=== PATIENT | female | born 1970 | race Caucasian/White ===

== ENCOUNTER 2023-06-26 10:12 | Emergency (ER) | payer OTHER, SELFPAY ==
[2023-06-26] VITALS (33 sets, daily range): BP systolic 156–240; BP diastolic 80–146; PULSE 60–129; RESP 13–29; TEMP 36.7; O2SAT 88–100; BMI 22.0
--- NOTE | 2023-06-26 10:41 | ECG_ITS ---
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
--- NOTE | 2023-06-26 10:42 | ED.GENADUL1 ---
HPI - General Adult General Chief complaint: Abdominal Pain Stated complaint: FLANK PAIN Time Seen by Provider: 06/26/23 10:38 Source: patient Mode of arrival: walk-in Limitations: no limitations History of Present Illness HPI narrative: Patient is a .-year-old female who is presenting with left lower quadrant pain this started last evening. Patient had a dull ache last evening to the left lower quadrant/left pain. Patient did not think it was a kidney stone initially because she's been having kidney stones in the past, and typically starts in the left lower back and radiates to left flank and left lower quadrant. Patient went to PCP office this morning, Dr. Ellis. Patient's pain intensified this morning, patient drove to the office and then drove to the hospitalists morning. Patient had a urine sample done in the Dr. Ellis office that showed gross blood. 4 years ago approximately patient had some type of dilatation where patient says there are multiple rides that were placed into her urethra/ureters and that was hopefully going to fix her kidney stone problems. It does not sound like she had a stent, not sure she had dilation of the ureters, the history is very vague jefferson the patient. Patient did have this done in the urology office at [facility]. Patient does not recall ever having any lithotripsy or stents placed. Patient's not had a kidney stone in the past for 5 years. She is urinating less this morning, blood noted. Nausea no vomiting noted. 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 She has no pain radiating down her leg. No chest pain or shortness of breath. It was noted in the room by Larry RN during patient's initial presentation of pain that she had transient bradycardia, EKG was done. That was short-lived and resolved. Patient is hypertensive secondary to pain most likely per patient history. . All systems are negative except as noted/marked. All systems reviewed and otherwise negative. . Nurses note and vital signs reviewed and patient is not hypoxic. General: The patient appears well and in Mild distress secondary to pain, patient is slightly writhing in bed. Patient is resting uncomfortably on cart. Patient is not toxic, lethargic, or listless Skin: Warm, dry, no pallor noted. There is no rash noted. No petechiae, purpura. Head: Normocephalic, atraumatic Eye: Normal conjunctiva, no drainage, EOMI. PERRL Ears, Nose, Mouth, and Throat: oral mucosa is moist. Nares patent. Mouth without vesicles. Cardiovascular: Regular Rate and Rhythm, no murmur, gallop, rub Respiratory: Patient is in no distress, no accessory muscle use, lungs are clear to auscultation, no wheezing, rales or rhonchi Back: non-tender, Patient has mild tenderness to palpation to left CVA, no right CVA tenderness palpation. Mild left flank pain, no right flank pain,. No CT LS midline pain GI: soft, Mild to moderate left lower quadrant tenderness to palpation, no suprapubic tenderness to palpation, otherwise no tenderness to palpation, no masses appreciated. No rebound, guarding, or rigidity noted. No flank pain bilateral, No distention Musculoskeletal: Patient has full range of motion of all of the extremities, no motor, sensory, or focal neurological deficits Neurological: A&O x3, normal speech Psychiatric: Cooperative Related Data Previous Rx's Medication Instructions Recorded ketorolac 10 mg tablet 10 mg PO Q8H PRN pain 1 day #10 06/26/23 tabs ondansetron 4 mg disintegrating 4 mg PO Q4H PRN nausea and 06/26/23 tablet vomiting 3 days #6 tabs oxycodone-acetaminophen 5 mg-325 1 tab PO Q4H PRN pain #10 tabs 06/26/23 mg tablet (Percocet) tamsulosin 0.4 mg capsule (Flomax) 0.4 mg PO DAILY 7 days #7 caps 06/26/23 Allergies Allergy/AdvReac Type Severity Reaction Status Date / Time ketamine AdvReac Intermediate Verified 06/26/23 14:07 PFSH PFSH Social History Smoking status: Former smoker Exam Constitutional Vital Signs, click to edit/add: Last Vital Signs Temp 98.0 F 06/26/23 10:22 Pulse 99 H 06/26/23 14:20 Resp 16 06/26/23 14:20 BP 161/98 H 06/26/23 14:05 Pulse Ox 95 06/26/23 14:20 O2 Del Method Room Air 06/26/23 10:22 Course Vital Signs Vital signs: Vital Signs Temperature 98.0 F 06/26/23 10:22 Pulse Rate 65 06/26/23 10:22 Respiratory Rate 20 06/26/23 10:22 Blood Pressure 240/120 H 06/26/23 10:22 Pulse Oximetry 100 06/26/23 10:22 Oxygen Delivery Method Room Air 06/26/23 10:22 Temperature 98.0 F 06/26/23 10:22 Pulse Rate 99 H 06/26/23 14:20 Respiratory Rate 16 06/26/23 14:20 Blood Pressure 161/98 H 06/26/23 14:05 Pulse Oximetry 95 06/26/23 14:20 Oxygen Delivery Method Room Air 06/26/23 10:22 Medical Decision Making MDM Narrative Medical decision making narrative: Patient was initially given IV Zofran, Toradol and morphine. The morphine was helping take the edge off the pain somewhat, patient blood pressure improved slightly. After proximal 20 minutes, patient's pain returned and was severe again. Patient was given 0.5 mg of IV Dilaudid. This did not help much with her pain either. [address] of abdomen and pelvis, patient will be given IV dose of ketamine. I was going to order Ativan, we are currently out of Ativan in the hospital 1345 Patient was given ketamine, patient had a brief adverse reaction where she became tachycardic, and was transiently delirious thinking something was wrong something was going to harm her. This quickly resolved, EKGs were done. Patient had a rhythm strip done, patient's heart rate was in the 170s. This appears to be sinus tachycardia. EKG #1. Sinus tachycardia 137. Normal axis deviation. No acute ST elevation, no acute ectopy. QTC of 420. No acute findings. Patient's heart rate improved and back to normal within 3-5 minutes. Patient was given a half a dose of ketamine, approximately 15 mg. This did take her pain away. Patient is aware that we have no Urology on-call until , so if I did admit her for intractable pain to the hospital which was offered to her, we will not have urology consultation. Patient does not want to be admitted to the hospital, patient wants to be discharged and treat her symptoms at home. Patient was given a copy of her CAT scan report. She has a 2 mm stone with mild hydroureter/hydronephrosis at the distal ureter. Patient is given urine strainers. Patient is given follow-up with Dr. Mathews. Patient understands return back to the Emergency Room if intractable pain, nausea or any other acute symptoms. Patient understands is no questions at discharge. Patient was sent home with a prescription for Flomax, Zofran, Percocet, and Toradol. Lab Data Lab results reviewed: Yes I reviewed the patient's lab results Labs: Lab Results 06/26/23 06/26/23 Range/Units 10:32 10:39 WBC 5.9 (4.0-11.0) 10^3/uL RBC 4.79 (4.20-5.40) 10^6/uL Hgb 13.9 (12.0-16.0) g/dL Hct 40.9 (36.0-48.0) % MCV 85.4 (81.0-99.0) fL MCH 29.0 (26.7-34.0) pg MCHC 34.0 (29.9-35.2) g/dL RDW 11.9 (11.0-15.0) % Plt Count 192 (150-450) 10^3/uL MPV 9.7 (9.5-13.5) fL Neut % (Auto) 47.9 (43.0-75.0) % Lymph % (Auto) 40.9 (20.5-60.0) % [place] % (Auto) 6.6 (1.7-12.0) % Eos % (Auto) 3.7 (0.9-7.0) % Baso % (Auto) 0.7 (0.2-2.0) % Neut # (Auto) 2.8 (1.4-6.5) 10^3/uL Lymph # (Auto) 2.4 (1.2-3.8) 10^3/uL [place] # (Auto) 0.4 (0.3-0.8) 10^3/uL Eos # (Auto) 0.2 (0.0-0.7) 10^3/uL Baso # (Auto) 0.0 (0.0-0.1) 10^3/uL Abs Immat Gran (auto) 0.01 (0.00-0.03) 10^3/uL Imm/Tot Granulo (auto) 0.2 (0.0-0.5) % Sodium 139 (136-145) mmol/L Potassium 4.1 (3.5-5.1) mmol/L Chloride 105 (98-107) mmol/L Carbon Dioxide 27.4 (21.0-32.0) mmol/L Anion Gap 10.7 BUN 16.0 (7.0-18.0) mg/dL Creatinine 0.69 (0.55-1.02) mg/dL Est GFR ( Amer) >60 (>=60) Est GFR (Non-Af Amer) >60 (>=60) BUN/Creatinine Ratio 23.2 Glucose 101 (74-106) mg/dL Lactate 0.8 (0.4-2.0) mmol/L Calcium 8.8 (8.5-10.1) mg/dL Total Bilirubin 0.4 (0.2-1.0) mg/dL AST 18 (15-37) U/L ALT 25 (14-59) U/L Alkaline Phosphatase 66 (46-116) U/L Total Protein 7.4 (6.4-8.2) g/dL Albumin 4.2 (3.4-5.0) g/dL Globulin 3.2 g/dL Albumin/Globulin Ratio 1.3 Lipase 46.0 (16.0-77.0) U/L Urine Color Yellow (YELLOW) Urine Clarity Slightly cloudy A (CLEAR) Urine pH 5.5 (5.0-9.0) Ur Specific [place] >=1.030 A (1.005-1.025) Urine Protein Negative (NEG/TRACE) mg/dL Urine Glucose (UA) Negative (NEGATIVE) mg/dL Urine Ketones Negative (NEGATIVE) mg/dL Urine Occult Blood Moderate A (NEGATIVE) Urine Nitrite Negative (NEGATIVE) Urine Bilirubin Negative (NEGATIVE) Urine Urobilinogen 0.2 (0.2-1.0) EU/dL Ur Leukocyte Esterase Negative (NEGATIVE) Urine RBC 0-2 (0-2) #/HPF Urine WBC None seen (NONE SEEN) #/HPF Ur Squamous Epith Cells Rare (NONE/RARE) #/LPF Urine Crystals Seen A (None Seen) #/HPF Calcium Oxalate Crystal Rare Urine Bacteria None seen (NONE SEEN) #/HPF Urine Casts None seen (NONE SEEN) #/LPF Urine Mucus Small A (NONE SEEN) Ur Culture Indicated? No ECG Data Attestation: I personally reviewed and interpreted this ECG as follows: (EKG interpretation. Normal sinus rhythm at 60 beats a minute. Normal axis deviation. No acute ST elevation, no acute ectopy. QTC of 396.) Discharge Plan Discharge Chief Complaint: Abdominal Pain Clinical Impression: Calculus of kidney, Renal colic on left side Patient Disposition: Home, Self-Care Time of Disposition Decision: 14:21 Condition: Good Prescriptions / Home Meds: New ketorolac 10 mg tablet 10 mg PO Q8H PRN (Reason: pain) 1 Days Qty: 10 0RF oxycodone-acetaminophen [Percocet] 5-325 mg tablet 1 tab PO Q4H PRN (Reason: pain) Qty: 10 0RF tamsulosin [Flomax] 0.4 mg capsule 0.4 mg PO DAILY 7 Days Qty: 7 0RF ondansetron 4 mg tablet,disintegrating 4 mg PO Q4H PRN (Reason: nausea and vomiting) 3 Days Qty: 6 0RF Instructions: Kidney Stones (ED), Urinary Incontinence (ED), Renal Colic (ED) Additional Instructions: Increase fluids at home, half a gallon to 1 gallon of water a day. Use urine strainers. Take Flomax daily, use Toradol, Zofran or morphine as needed. Return back to the Emergency Room if intractable pain, nausea or vomiting. You had a adverse reaction Briefly in the Emergency Room today to ketamine IV. Stand Alone Forms: Portal Instructions Referrals: Gregorio Mathews MD [Physician] - 1 week MARLIN ELLIS [Primary Care Provider] - 1 week
[2023-06-26] MEDS: ONDANSETRON PF 4 MG/2 ML VIAL IV ×2 (10:48→14:40)
[2023-06-26] MEDS: MORPHINE SULFATE 4 MG/ML VIAL IV (10:48)
[2023-06-26] MEDS: KETOROLAC TROMETHAMINE 30 MG/ML VIAL 15 MG IVP (10:48)
[2023-06-26] MEDS: 0.9 % SODIUM CHLORIDE 1,000 ML 1000 ML IV (10:49)
[2023-06-26 10:54] LABS: Bilirubin Urine NEGATIVE (NEGATIVE); Blood Urine MODERATE (NEGATIVE); Color Urine YELLOW (YELLOW); Glucose Urine UA NEGATIVE (NEGATIVE); Ketones Urine NEGATIVE (NEGATIVE); Leukocyte Esterase Urine NEGATIVE (NEGATIVE); Nitrite Urine NEGATIVE (NEGATIVE); Protein Urine NEGATIVE (NEG/TRACE); Specific Gravity Urine >=1.030 (1.005-1.025); Urobilinogen Urine 0.2 EU/dL (0.2-1.0); pH Urine 5.5 (5.0-9.0)
[2023-06-26 10:55] LABS: Basophils Percent Auto 0.7 % (0.2-2.0); Eosinophils Absolute Auto 0.2 10^3/uL (0.0-0.7); Eosinophils Percent Auto 3.7 % (0.9-7.0); Hematocrit 40.9 % (36.0-48.0); Hemoglobin 13.9 g/dL (12.0-16.0); Immature Granulocytes Abs Auto 0.01 10^3/uL (0.00-0.03); Immature Granulocytes Pct Auto 0.2 % (0.0-0.5); Lymphocytes Absolute Auto 2.4 10^3/uL (1.2-3.8); Lymphocytes Percent Auto 40.9 % (20.5-60.0); Mean Corpuscular Volume 85.4 fL (81.0-99.0); Mean Platelet Volume 9.7 fL (9.5-13.5); Monocytes Absolute Auto 0.4 10^3/uL (0.3-0.8); Monocytes Percent Auto 6.6 % (1.7-12.0); Neutrophils Absolute Auto 2.8 10^3/uL (1.4-6.5); Neutrophils Percent Auto 47.9 % (43.0-75.0); Platelet Count 192 10^3/uL (150-450); Red Blood Count 4.79 10^6/uL (4.20-5.40); Red Cell Distribution Width 11.9 % (11.0-15.0); White Blood Count 5.9 10^3/uL (4.0-11.0)
[2023-06-26 10:58] LABS: Clarity Urine SLIGHTLY CLOUDY (CLEAR)
[2023-06-26 11:00] LABS: Bacteria Urine NONE SEEN #/HPF (NONE SEEN); Calcium Oxalate Crystals Urine RARE; Cast Seen? NONE SEEN #/LPF (NONE SEEN); Crystals Seen? Seen #/HPF (None Seen); Mucus Urine SMALL (NONE SEEN); RBC Urine 0-2 #/HPF (0-2); Squamous Epithelial Cell Urine RARE #/LPF (NONE/RARE); Urine Culture Indicated NO; WBC Urine NONE SEEN #/HPF (NONE SEEN)
[2023-06-26 11:10] LABS: Alanine Aminotransferase 25 U/L (14-59); Albumin Globulin Ratio 1.3; Albumin Level 4.2 g/dL (3.4-5.0); Alkaline Phosphatase 66 U/L (46-116); Anion Gap 10.7; Aspartate Amino Transferase 18 U/L (15-37); BUN Creatinine Ratio 23.2; Bilirubin Total 0.4 mg/dL (0.2-1.0); Calcium 8.8 mg/dL (8.5-10.1); Carbon Dioxide 27.4 mmol/L (21.0-32.0); Chloride 105 mmol/L (98-107); Estimated GFR (African America >60 (>=60); Estimated GFR (Non-African Ame >60 (>=60); Globulin 3.2 g/dL; Glucose 101 mg/dL (74-106); Potassium 4.1 mmol/L (3.5-5.1); Sodium 139 mmol/L (136-145); Total Protein 7.4 g/dL (6.4-8.2)
[2023-06-26 11:12] LABS: Lactate/Lactic Acid 0.8 mmol/L (0.4-2.0)
[2023-06-26] MEDS: HYDROMORPHONE HCL 0.5 MG/0.5 ML SYRINGE IV (11:29)
--- NOTE | 2023-06-26 11:54 | CT_ITS ---
The [address] [address] Patient Name: LIAN GORDILLO MRN: [id number] date: 1970 Sex: F Assigned Patient Location: ED.MAIN Current Patient Location: Accession/Order Number: [id number] Exam Date: 06/26/2023 11:45 Report Date: 06/26/2023 12:55 At the request of: HIRO HAYES Procedure: CT abdomen pelvis w con EXAMINATION: CT abdomen pelvis w con, 06/26/2023 11:45 AM EDT HISTORY: stone COMPARISON: CT pelvis 02/20/2009 TECHNIQUE: CT of the abdomen, and pelvis was performed following administration of IV contrast. Oral contrast was not administered prior to the examination. Dose reduction techniques were achieved by using automated exposure control and/or adjustment of mA and/or kV according to patient size and/or use of iterative reconstruction technique. FINDINGS: Lung Bases: Minimal hazy groundglass in the lower lobes bilaterally, with additional minimal interstitial thickening which appears relatively smooth. Liver: Normal size and contour. Mild periportal edema. Minimal hypoattenuation about the falciform ligament, likely focal fat versus perfusional variation. Biliary tree: Normal. Gallbladder: Cholecystectomy Spleen: Mildly enlarged, measuring roughly 12.7 cm in craniocaudal dimension. Pancreas: Parenchymal lipoma versus prominent lobule of peripancreatic fat about the tail measuring 1.6 cm. No abnormal ductal dilatation. Adrenal glands: Normal. Kidneys and ureters: Mild left hydronephrosis, asymmetric left perinephric/periureteral stranding, with punctate 2 mm calculus in the distal ureter just upstream to the vesicoureteral junction. Slightly delayed left nephrogram as well, suggests a degree of obstructive uropathy. Bladder: Grossly unremarkable for the degree of underdistention. Reproductive organs: Hysterectomy. No suspicious adnexal mass. Gastrointestinal tract: Nondilated. The appendix is not definitively visualized. No finding in the right lower quadrant to suggest acute appendicitis. Peritoneum/retroperitoneum: No free fluid or gas. Vasculature: Atherosclerosis without aneurysm. Lymph nodes: Normal. Abdominal wall: Procedure change. Musculoskeletal: Degenerative change of the spine. CT/CT abdomen pelvis w con IMPRESSION: 1. Punctate 2 mm left distal ureteral calculus, just upstream to the vesicoureteral junction, with mild left hydronephrosis, delayed left nephrogram suggesting a degree of obstructive uropathy. Asymmetric left perinephric/periureteral stranding presumably relates to stone disease; correlate with urinalysis if there is concern for ascending urinary tract infection. 2. Hazy groundglass and minimal interstitial thickening in the lower lobes bilaterally is nonspecific, could relate to pneumonitis versus minimal edema. 3. Mild periportal edema as well, is nonspecific and can be seen with third spacing and/or fluid resuscitation. Correlate with patient's symptomatology, and LFTs and if there is clinical concern for acute hepatitis. 4. Mild splenomegaly. Electronically authenticated by: ANITA CABAN Date: 06/26/2023 12:55
[2023-06-26] MEDS: 0.9 % SODIUM CHLORIDE 1,000 ML 100 ML IV (12:10)
[2023-06-26] MEDS: KETAMINE HCL 500 MG/10 ML VIAL 30 MG IV (13:31)
--- NOTE | 2023-06-26 13:39 | ECG_ITS ---
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
== END 2023-06-26 14:52 | disposition home or self-care (01) ==
PROVIDERS: Emergency Provider Emergency Medicine; PCP Family Medicine
DX: N20.0 Calculus of kidney (principal); Z87.442 Personal history of urinary calculi; Z87.891 Personal history of nicotine dependence
CPT/HCPCS: 36415; 74177; 80053; 81001; 83605; 83690; 85025; 93005; 96374; 96375; 96376; 99285; J1170; Q9967

== ENCOUNTER 2024-04-30 13:00 | Outpatient (RCR) | payer BC, SELFPAY | END 2024-05-01 13:56 | disposition home or self-care (01) | LOC: PT 13:00 | PROVIDERS: PCP Family Medicine; Visit Provider Family Medicine | DX: M62.830 Muscle spasm of back (principal) ==

== ENCOUNTER 2024-04-30 13:37 | Emergency (ER) | payer BC, SELFPAY ==
[2024-04-30 13:44] VITALS: BP 180/90; PULSE 69; TEMP 36.6; O2SAT 99; BMI 21.5
--- NOTE | 2024-04-30 14:04 | ECG_ITS ---
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
--- NOTE | 2024-04-30 14:04 | ED_ITS ---
HPI HPI - General Adult General Chief complaint: Recheck/Abnormal Lab/Rx Stated complaint: HIGH BLOOD PRESSURE READING Time Seen by Provider: 04/30/24 13:56 Source: patient Mode of arrival: walk-in History of Present Illness HPI narrative: 53-year-old female presents for elevated blood pressure. She has a history of hypertension and takes her blood pressure medicine regularly, has not run out. She checked her blood pressure at home a few days ago and it was normal. She was at physical therapy and they checked it and it was high and they told her to come here. She does not complain of chest pain or headache. She thinks that her blood pressure may be elevated because of the pain in her hip for which she is going to physical therapy. Related Data Home Medications ?Medication ?Instructions ?Recorded ?Confirmed baclofen 20 mg tablet 20 mg PO Q8H 04/30/24 04/30/24 levothyroxine 100 mcg tablet mcg 04/30/24 levothyroxine 75 mcg tablet 75 mcg PO DAILY 04/30/24 04/30/24 losartan 100 mg tablet 100 mg PO DAILY 04/30/24 04/30/24 pantoprazole 40 mg tablet,delayed 40 mg PO DAILY 04/30/24 04/30/24 release Allergies Allergy/AdvReac Type Severity Reaction Status Date / Time ketamine AdvReac Intermediate Verified 06/26/23 14:07 Opioid HPI Opioid Management Most Recent Opioid Data: Last Pain Scale 8 06/26/23 11:06 Review of Systems ROS Narrative A ten point review of systems is negative except as noted above. PFSH PFSH Social History Smoking status: Former smoker Exam Narrative Exam Narrative: Nurses note and vital signs reviewed and patient is not hypoxic. General: The patient appears well and in no apparent distress. 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 Skin: Warm, dry, no pallor noted. There is no rash noted. Head: Normocephalic, atraumatic Eye: Normal conjunctiva, no drainage Ears, Nose, Mouth, and Throat: oral mucosa is moist. Nares patent. Cardiovascular: Regular Rate and Rhythm Respiratory: Patient is in no distress, no accessory muscle use, lungs are clear to auscultation, no wheezing, rales or rhonchi Back: non-tender GI: Soft and nontender Musculoskeletal: The patient has no evidence of calf tenderness, no pitting edema, symmetrical pulses noted bilaterally Neurological: A&O normal speech Psychiatric: Cooperative Constitutional Vital Signs, click to edit/add: Last Vital Signs Temp 97.9 F 04/30/24 13:44 Pulse 64 04/30/24 14:30 Resp 15 04/30/24 14:30 BP 143/80 H 04/30/24 14:30 Pulse Ox 99 04/30/24 13:44 O2 Del Method Room Air 04/30/24 13:44 Course Vital Signs Vital signs: Vital Signs Temperature 97.9 F 04/30/24 13:44 Pulse Rate 69 04/30/24 13:44 Respiratory Rate 18 04/30/24 13:44 Blood Pressure 180/90 H 04/30/24 13:44 Pulse Oximetry 99 04/30/24 13:44 Oxygen Delivery Method Room Air 04/30/24 13:44 Temperature 97.9 F 04/30/24 13:44 Pulse Rate 64 04/30/24 14:30 Respiratory Rate 15 04/30/24 14:30 Blood Pressure 143/80 H 04/30/24 14:30 Pulse Oximetry 99 04/30/24 13:44 Oxygen Delivery Method Room Air 04/30/24 13:44 Medical Decision Making MDM Narrative Medical decision making narrative: Her blood pressure normalized without intervention and she feels improved and is able to be discharged home. She will be able to check her blood pressure at home and she will follow-up with her doctor if needed. Treatment diagnosis and follow-up were discussed with the patient. Differential Diagnosis Differential Diagnosis: Hypertension, pain induced hypertension ECG Data Attestation: I personally reviewed and interpreted this ECG as follows: (EKG on my interpretation shows normal sinus rhythm without acute change and rate of 64.) Discharge Plan Discharge Stand Alone Forms: Portal Instructions Chief Complaint: Recheck/Abnormal Lab/Rx Clinical Impression: Hypertension Patient Disposition: Home, Self-Care Time of Disposition Decision: 14:51 Condition: Good Mode of Transportation: Private Vehicle Prescriptions / Home Meds: No Action baclofen 20 mg tablet 20 mg PO Q8H levothyroxine 75 mcg tablet 75 mcg PO DAILY levothyroxine 100 mcg tablet losartan 100 mg tablet 100 mg PO DAILY pantoprazole 40 mg tablet,delayed release (DR/EC) 40 mg PO DAILY Print Language: Uzbek Instructions: Hypertension (ED) Referrals: MARLIN CALVERT [Primary Care Provider] - 1 week
[2024-04-30 14:28] VITALS: BP 151/87; PULSE 65
[2024-04-30 14:29] VITALS: PULSE 64
[2024-04-30 14:30] VITALS: BP 143/80; PULSE 64
[2024-04-30 14:40] VITALS: PULSE 59
[2024-04-30 14:50] VITALS: PULSE 66
== END 2024-04-30 15:05 | disposition home or self-care (01) ==
PROVIDERS: Emergency Provider Emergency Medicine; PCP Family Medicine
DX: I10 Essential (primary) hypertension (principal); Z87.891 Personal history of nicotine dependence
CPT/HCPCS: 93005; 99283

== ENCOUNTER 2024-05-14 14:00 | Outpatient (RCR) | payer BC, SELFPAY | END 2024-05-15 12:51 | disposition home or self-care (01) | LOC: PT 14:00 | PROVIDERS: PCP Family Medicine; Visit Provider Family Medicine | DX: M62.830 Muscle spasm of back (principal) | CPT/HCPCS: 97750 ==

== ENCOUNTER 2024-11-23 10:48 | Outpatient (OUT) | payer BC, SELFPAY ==
--- NOTE | 2024-11-23 10:50 | US_ITS ---
The [address] [address] Patient Name: LIAN GORDILLO MRN: [id number] date: 1970 Sex: F Assigned Patient Location: US Current Patient Location: US Accession/Order Number: [id number] Exam Date: 11/23/2024 14:11 Report Date: 11/23/2024 14:13 At the request of: BRIANA TERRY Procedure: US thyroid Thyroid Ultrasound HISTORY: History of Betzy's thyroiditis. Thyroid medication for 15 years. Trouble swallowing. COMPARISON: None The RIGHT lobe measures 0.9 x 0.6 x 0.6cm. LEFT lobe measures 1.0 x 0.4 x 0.5 cm. Isthmus has an AP dimension of 0.7cm. No thyroid nodule identified.. No microcalcifications identified. Symmetric blood flow of the thyroid gland identified. US/US thyroid IMPRESSION: No thyroid nodules. Impression dictated by: Rickey Josue M.D.11/23/2024 2:13 PM Dictation Location: [employer] Electronically authenticated by: [id number] Date: 11/23/2024 14:13
--- OUTSIDE RECORDS SUMMARY | 2024-11-23 10:51 | XMS_ITS | CCD ---
Author Organization [facility] Care Team Providers Care Automation Test Developer Name Role Phone Xena Garner MD Primary Care Provider DR XENA GARNER Admitting Unavailable CASEY, DR XENA Wooten Attending Unavailable CASEY, DR XENA Wooten Primary Care Unavailable CASEY, DR XENA Wooten Consulting Unavailable Demarco Ellis. Primary Care Physician [phone] Jay Ellis Primary Care Provider [phone] RENNY Presley Attending Provider Homa Presley Attending Unavailable Maia Ellisnaterlin Benjamin Primary Care Unavailable Sakina Homa Admitting Unavailable Homa Presley Attending Unavailable Maia Ellisnathan H Primary Care Unavailable Sakina, Homa Admitting Unavailable Caleb Jay H Primary Care Provider [phone] Homa Presley APRN Attending Provider Demarco Ellis Attending Unavailable Caleb Demarco E. Admitting Unavailable Caleb, Demarco E. Attending Unavailable Caleb, Demarco E. Attending Unavailable Caleb, Demarco E. Admitting Unavailable Caleb, Demarco E. Admitting Unavailable Caleb Demarco E. Attending Unavailable Caleb Demarco E. Attending Unavailable Caleb Demarco E. Attending Unavailable Caleb Demarco E. Attending Unavailable Caleb, Demarco E. Attending Unavailable Caleb, Demarco E. Attending Unavailable Caleb, Demarco E. Attending Unavailable Caleb Demarco E. Attending Unavailable Caleb Demarco E. Attending Unavailable Caleb Demarco E. Attending Unavailable Caleb Demarco E. Attending Unavailable Rena Guzman Attending Unavailable Demarco Ellis E. Attending Unavailable Allergies Allergy Classification Reported Allergen(s) Allergy Type Date of Onset Reaction(s) Facility (7 sources) Ketamine; Translations: [ketamine] Drug Allergy Bradycardia (disorder) [facility] Medications Current Medications Medication Drug Class(es) Dates Sig (Normalized) Sig (Original) baclofen 20 mg oral tablet (10 sources) gamma-Aminobutyric Acid-ergic Agonist Start: 07-02-2024 Baclofen Active MG PO July 02, 2024 12:00am Start: 11-15-2023 End: 11-09-2024 Baclofen 20 mg tablet Active MG PO July 01, 2024 11:00pm Start: 01-11-2023 take 1 tablet by eula th three times daily baclofen 20 mg Tab 20 mg = 1 tab(s), Oral, TID, # 90 tab(s), Refills(s) 5, Pharmacy: [facility]/pharmacy #[id number] Start Date: 01/11/23 Status: Ordered celecoxib 200 mg oral capsule (6 sources) Nonsteroidal Anti-inflammatory Drug Start: 01-11-2023 take 1 capsule by mouth twice daily celecoxib 200 mg Cap 200 mg = 1 cap(s), Oral, BID, # 60 cap(s), Refills(s) 0 Start Date: 01/11/23 Status: Ordered levothyroxine sodium 0.075 mg oral tablet (11 sources) l-Thyroxine Start: 07-02-2024 Levothyroxine 75 mcg tablet Active MCG PO July 01, 2024 11:00pm Start: 07-02-2024 Levothyroxine Active MCG PO July 02, 2024 12:00am Start: 01-15-2024 take 1 tablet by eula th once daily levothyroxine 75 mcg (0.075 mg) Tab 75 mcg = 1 tab(s), Oral, Daily, # 90 tab(s), Refills(s) 1, Pharmacy: [facility]/pharmacy #[id number], 163.2, cm, 01/11/24 15:23:00 EDT, Height/Length Dosing, 59.4, kg, 01/11/24 15:23:00 EDT, Weight Dosing Start Date: 01/15/24 Status: Ordered Start: 01-11-2024 take 1 tablet by eula th once daily levothyroxine 75 mcg (0.075 mg) Tab 75 mcg = 1 tab(s), Oral, Daily, # 30 tab(s), Refills(s) 1, [id number], 163.2, cm, 01/11/24 15:23:00 EDT, Height/Length Dosing, 59.4, kg, 01/11/24 15:23:00 EDT, Weight Dosing Start Date: 01/11/24 Status: Ordered Start: 10-30-2023 take 1 tablet by eula th once daily levothyroxine 100 mcg (0.1 mg) Tab See Instructions, TAKE 1 TABLET BY MOUTH EVERY DAY, # 90 tab(s), Refills(s) 1, Pharmacy: [facility] STORE [id number], 163.2, cm, 07/12/23 8:28:00 EDT, Height/Length Dosing, 58.4, kg, 07/12/23 8:28:00 EDT, Weight Dosing Start Date: 10/30/23 Status: Ordered Start: 06-21-2023 take 1 tablet by eula th once daily levothyroxine 125 mcg (0.125 mg) Tab 125 mcg = 1 tab(s), Oral, Daily, # 90 tab(s), Refills(s) 0, [id number], 163.2, cm, 06/19/23 14:23:00 EDT, Height/Length Dosing, 57.8, kg, 06/19/23 14:23:00 EDT, Weight Dosing Start Date: 06/21/23 Status: Ordered Start: 01-31-2023 take 1 tablet by eula th once daily levothyroxine 150 mcg (0.15 mg) Tab 150 mcg = 1 tab(s), Oral, Daily, # 90 tab(s), Refills(s) 1, [id number] Start Date: 01/31/23 Status: Ordered take 1 tablet by eula th once daily before breakfast levothyroxine (SYNTHROID) 150 mcg tablet Take 150 mcg by mouth daily before breakfast. 0 Active Comment on above: Take 150 mcg by mout h daily before breakfast. losartan potassium 100 mg oral tablet (6 sources) Angiotensin 2 Receptor Natalia Start: 07-02-2024 Losartan 100 mg tablet Active MG PO July 01, 2024 11:00pm Start: 07-02-2024 Losartan Activ e MG PO July 02, 2024 12:00am Start: 01-11-2024 take 1 tablet by mouth once da trae losartan 100 mg Tab 100 mg = 1 tab(s), Oral, Daily, # 90 tab(s), Refills(s) 0, [id number], 163.2, cm, 01/11/24 15:23:00 EDT, Height/Length Dosing, 59.4, kg, 01/11/24 15:23:00 EDT, Weight Dosing Start Date: 01/11/24 Status: Ordered methylPREDNISolone 4 mg oral tablet (1 source) Corticosteroid Start: 02-19-2024 End: 02-25-2024 Medrol Dosepack 4 mg Tab = 1 packet(s), Oral, As Directed, as directed on package labeling, X 6 day(s), # 21 tab(s), Refills(s) 0, [id number], 163.2, cm, 02/19/24 16:51:00 EDT, Height/Length Dosing, 59.1, kg, 02/19/24 16:51:00 EDT, Weight Dosing Start Date: 02/19/24 Stop Date: 02/25/24 Status: Ordered mupirocin 0.02 mg/mg topical ointment (6 sources) RNA Synthetase Inhibitor Antibacterial Start: 01-11-2023 mupirocin Top 2% Oint 1 jevon, Topical, TID, 30 gram, Refill(s) 0 Start Date: 01/11/23 Status: Ordered pantoprazole 40 mg delayed release oral tablet (10 sources) Proton Pump Inhibitor Start: 07-02-2024 Pantopra zole 40 mg tablet,delayed release (DR/EC) Active MG PO July 01, 2024 11:00pm Start: 07-02-2024 Pantoprazole A ctive MG PO July 02, 2024 12:00am Start: 11-15-2023 take 1 tablet by eula th once daily Pantoprazole [address] Tab See Instructions, TAKE 1 TABLET BY MOUTH EVERY DAY, # 30 tab(s), Refills(s) 11, Pharmacy: [facility] [id number], 163.2, cm, 11/06/23 16:31:00 EST, Height/Length Dosing, 59.8, kg, 11/06/23 16:31:00 EST, Weight Dosing Start Date: 11/15/23 Status: Ordered Start: 01-11-2023 take 1 tablet by eula th once daily Pantoprazole [address] Tab 40 mg = 1 tab(s), Oral, Daily, Refills(s) 0 Start Date: 01/11/23 Status: Ordered predniSONE 10 mg oral tablet (4 sources) Start: 07-02-2024 Prednisone 10 mg tablet Active 10 MG PO As Directed July 01, 2024 11:00pm see taper instructions traMADol hydrochloride 50 mg oral tablet (1 source) Opioid Agonist Start: 02-19-2024 End: 02-22-2024 take 1 tablet by mouth every twelve hours as needed for pain traMADOL 50 mg Tab 50 mg = 1 tab(s), Oral, q12hr, PRN for pain, X 3 day(s), # 6 tab(s), Refills(s) 0, Pharmacy: [facility]/pharmacy #[id number], 163.2, cm, 02/19/24 16:51:00 EDT, Height/Length Dosing, 59.1, kg, 02/19/24 16:51:00 EDT, Weight Dosing Start Date: 02/19/24 Stop Date: 02/22/24 Status: Ordered Completed/Discontinued Medications Medication Drug Class(es) Dates Sig (Normalized) Sig (Original) atorvastatin 20 mg oral tablet (1 source) HMG-CoA Reductase Inhibitor take 1 tablet by mouth once daily atorvastatin (LIPITOR) 20 mg tablet Take 20 mg by mouth once daily. 0 Active Comment on above: Take 20 mg by mouth once daily. drospirenone / Ethinyl Estradiol (1 source) Progestin, Estrogen Start: 10-25-2016 take 1 tablet by mouth once daily Drospirenone-Ethi nyl Estradiol (ROSEANN, 28,) 3-0.03 mg per tablet Take 1 tablet by mouth once daily. 3 Package 3 10/25/2016 Active Comment on above: Take 1 tablet by eula once daily. hydroCHLOROthiazide 25 mg / losartan potassium 100 mg oral tablet (1 source) Thiazide Diuretic, Angiotensin 2 Receptor Natalia take 1 tablet by mouth once daily losartan-hydrochl orothiazide (HYZAAR) 100-25 mg per tablet Take 1 tablet by mouth once daily. 0 Active Comment on above: Take 1 tablet by eula th once daily. Problems Problem Classification Problem Date Documented Date Episodic/Chronic Anxiety disorders (6 sources) Anxiety state 01-11-2023 Chronic Calculus of urinary tract (6 sources) History of calculus of kidney; Translations: [Personal history of urinary calculi] Onset: 07-06-2023 Episodic Cardiac dysrhythmias (6 sources) Palpitations 06-19-2023 Episodic Conditions associated with dizziness or vertigo (6 sources) Dizziness 06-19-2023 Episodic Disorders of lipid metabolism (13 sources) Pure hypercholesterolemia, unspecified; Translations: [Mixed hyperlipidemia] Onset: 12-16-2021 01-11-2023 Chronic Essential hypertension (10 sources) Essential (primary) hypertension; Translations: [Essential hypertension] Onset: 12-14-2021 Chronic Genitourinary symptoms and ill-defined conditions (12 sources) History of urinary tract infection; Translations: [Personal history of urinary (tract) infections] Onset: 07-12-2023 Episodic Headache; including migraine (6 sources) Generalized headache 01-11-2023 Episodic Hypertension with complications and secondary hypertension (3 sources) Hypertensive urgency 06-26-2023 Chronic Osteoarthritis (6 sources) Osteoarthritis 01-11-2023 Chronic Other diseases of kidney and ureters (1 source) Urinary tract obstruction; Translations: [Hydronephrosis with renal and ureteral calculous obstruction] Onset: 07-06-2023 Episodic Other nervous system disorders (6 sources) Carpal tunnel syndrome 01-11-2023 Chronic Other non-traumatic joint disorders (4 sources) Hip pain; Translations: [Pain in left hip] 07-02-2024 Episodic Other non-traumatic joint disorders (5 sources) Pain in left hip; Translations: [Pain in joint, pelvic region and thigh] Onset: 07-02-2024 07-02-2024 Episodic Screening and history of mental health and substance abuse codes (6 sources) H/O: Disorder; Translations: [Personal history of nicotine dependence] Onset: 07-12-2023 Episodic Spondylosis; intervertebral disc disorders; other back problems (20 sources) Disorder of vertebral column; Translations: [Sciatica] Onset: 07-02-2024 01-11-2023 Episodic Thyroid disorders (7 sources) Autoimmune thyroiditis; Translations: [Fibrous autoimmune thyroiditis] Onset: 12-16-2021 01-11-2023 Chronic Unclassified (12 sources) Patient encounter status 06-19-2023 Unclassified (5 sources) Obstructive hydronephrosis 07-06-2023 Results Test Name Value Interpretation Reference Range Kiera constantino Family Medicine Office/Clini c Noteon 08-19-2024 Family Medicine Office/Clinic Note Family Medicine Office/Clinic Note HPI Staff Lian is a 53 year old female presenting to follow up back, clear to RTW Back pain is better Intensity 4-5 today History of Present Illness Patient presents for follow-up today on back pain. Patient wants to go back to work. Patient states that she needs a release to go back. Patient states that there is no concerns per neurology. Reviewed neurosurgery. Neurosurgery documented that the patient is still in significant amount of pain. But they review the MRI that showed no acute concern for the back pain. Neurosurgery believes that it is the SI joint and sent the patient to pain management. Patient now states that she is only 4 out of 5 out of 10 pain. Patient states that the pain is better with movement and not with sitting. Patient would then like to go back to work as she will feel better with the movement. Review of Systems PHQ Score Initial Depression Screen Score: 0 SCORE Physical Exam Vitals & Measurements T: 36.9 ???C(Oral) HR: 78(Peripheral) RR: 16 BP: 120/82 SpO2: 99% HT: 64 in HT: 163 cm WT: 62.9 kg WT: 138.671 lb BMI: 23.67 General: alert, no acute distress ENMT: oral mucosa moist, Cardiovascular: normal peripheral perfusion Respiratory: respirations non labored Extremities: no deformity, no trauma Neurological: oriented x 4, LOC appropriate for age, CN II-XII intact, motor strength equal & normal bilaterally, speech normal Assessment/Plan 1. Back pain (M54.9: Dorsalgia, unspecified) Patient to follow-up with pain management. Will the patient go back to work without restrictions. Patient should notify us if she has worsening back pain. Patient is to continue taking her baclofen as before. Patient is to see pain management. Follow-up No qualifying data available Problem List/Past Medical History Ongoing Anxiety states Back muscle spasm Back pain Bilateral carpal tunnel syndrome Colon cancer screening Dizziness Essential hypertension Former smoker Generalized headache Betzy thyroiditis, fibrous variant History of kidney stones History of UTI Mixed hyperlipidemia Nocturia Osteoarthritis Other specified dorsopathies, site unspecified Palpitation Pure hypercholesterolemia Sciatica Screening mammogram for breast cancer Ureteral stone with hydronephrosis Historical No qualifying data Procedure/Surgical History Cystourethroscopy with dilation of urethral stricture (11/04/2011), Carpal tunnel release, Cholecystectomy and exploration of bile duct, Colonoscopy, Endocervical biopsy, Lumbar discectomy, Oophorectomy, Partial hysterectomy, Post-surgery back pain, Surgery. Medications baclofen 20 mg Tab, 20 mg= 1 tab(s), Oral, TID, 3 refills levothyroxine 75 mcg (0.075 mg) Tab, See Instructions losartan 100 mg Tab, See Instructions mupirocin Top 2% Oint, 1 jevon, Topical, TID Pantoprazole [address] Tab, See Instructions Allergies ketamine (Decreased heart rate) Social History Alcohol - Denies Alcohol Use, 01/11/2023 Substance Abuse - Denies Substance Abuse, 01/11/2023 Tobacco Former smoker, quit more than 30 days ago, quit 15 years ago Tobacco Use:. Never Smokeless Tobacco Use:. Ready to change: No. Household tobacco concerns: No., 08/19/2024 Family History Arthritis: Mother. Bipolar: Mother, Father and Sister. Diabetes mellitus type 2: Mother. Heart disease: Mother. High cholesterol: Mother and Brother. Hypertension: Mother. Schizoaffective disorder: Mother and Father. Stroke: Brother. Immunizations Vaccine Date Status Comments SARS-CoV-2 (COVID-19) mRNA BNT-162b2 vax 11/23/2020 Recorded 2023-06-19: TPV40 SARS-CoV-2 (COVID-19) mRNA BNT-162b2 vax 11/05/2020 Recorded 2023-06-19: TPV40 influenza virus vaccine, inactivated 08/18/2015 Recorded Normal [facility] Comment on above: Result Comment: Elec tronically Signed By: Caleb YO, Demarco Kowalski.br\Date and Time Signed: 08/19/24 18:20 EST Provider Letteron 08-19-2024 Provider Letter Provider Letter August 19, 2024 LIAN GORDILLO [address] [place] [id number] : 1970 To Whom It May Concern, Please excuse above patient from work. May Return to Work On: 08/20/2024 Restrictions: None Comments: May return to work with no restrictions. Sincerely, [address] [address] [facility] MR lumbar spine wo conon MR lumbar spine wo con [facility] [place] [address] [place] [id number] MRI Report Signed Patient: Lian Gordillo MR#: [id number] : 1970 Acct:[id number] Age/Sex: 53 / F ADM Date: 07/30/24 Loc: [facility] Room: Type: [facility] Attending Dr: Homa Presley APRN Copies to: Homa Presley APRN Ordering Provider: Homa Presley APRN Date of Service: 07/30/24 MR/MR lumbar spine wo con: M54.16 - Radiculopathy, lumbar region MR lumbar spine wo con 07/30/2024 11:13 AM SIGNS AND SYMPTOMS: Back pain radiating to left hip with extremity radiculopathy PROTOCOL: Multiplanar multisequence MR images of the lumbar spine without IV contrast COMPARISON: 04/01/2024. FINDINGS: The bones of the lumbar spine are in anatomic alignment. There is preservation of vertebral body heights. There is disc desiccation and mild disc height loss at L4-5 and L5-S1. The marrow signal is within normal limits. The conus terminates at the superior endplate of the L1 vertebral body level. No epidural or paraspinous fluid collection is appreciated. At T12-L1: There is a normal disc, central canal, and neural foramen. At L1-L2: There is a normal disc, central canal, and neural foramen. At L2-L3: There is a normal disc, central canal, and neural foramen. At L3-L4: There is a normal disc, central canal, and neural foramen. At L4-L5: There is evidence of previous right hemilaminotomy. There is no significant spinal canal or neural foraminal narrowing. At L5-S1: There is mild facet hypertrophy with broad-based disc bulge. There is minimal spinal canal narrowing without neural foraminal stenosis. MR/MR lumbar spine wo con IMPRESSION: At L4-L5: There is evidence of previous right hemilaminotomy. There is no significant spinal canal or neural foraminal narrowing. At L5-S1: There is mild facet hypertrophy with broad-based disc bulge. There is minimal spinal canal narrowing without neural foraminal stenosis. Impression dictated by: Crow Rosas M.D.07/30/2024 3:41 PM Dictation Location: [place] [address] Transcribed By: [facility] 07/30/24 1541 Dictated By: Crow Rosas II, MD 07/30/24 1534 Signed By: 07/30/24 1541 Normal [facility] Magnetic resonance imaging r eportOrdered By: Crow Rosas on 07-30-2024 Study report [facility] [place] [address] MRI Report Signed Patient: Lian Gordillo MR#: [id number] : 1970 Acct:[id number] Age/Sex: 53 / F ADM Date: 4 Loc: [facility] Room: Type: [facility] Attending Dr: Homa Presley APRN Copies to: Homa Presley APRN~ Ordering Provider: Homa Presley APRN Date of Service: 07/30/24 MR/MR lumbar spine wo con: M54.16 - Radiculopathy, lumbar region MR lumbar spine wo con 07/30/2024 11:13 AM SIGNS AND SYMPTOMS: Back pain radiating to left hip with extremity radiculopathy PROTOCOL: Multiplanar multisequence MR images of the lumbar spine without IV contrast COMPARISON: 04/01/2024. FINDINGS: The bones of the lumbar spine are in anatomic alignment. There is preservation of vertebral body heights. There is disc desiccation and mild discheight loss at L4-5 and L5-S1. The marrow signal is within normal limits. The conus terminates at the superior endplate of the L1 vertebral body level. No epidural or paraspinous fluid collection is appreciated. At T12-L1: There is a normal disc, central canal, and neural foramen. At L1-L2: There is a normal disc, central canal, and neural foramen. At L2-L3: There is a normal disc, central canal, and neural foramen. At L3-L4: There is a normal disc, central canal, and neural foramen. At L4-L5: There is evidence of previous right hemilaminotomy. There is no significant spinal canal or neural foraminal narrowing. At L5-S1: There is mild facet hypertrophy with broad-based disc bulge. There isminimal spinal canal narrowing without neural foraminal stenosis. MR/MR lumbar spine wo con IMPRESSION: At L4-L5: There is evidence of previous right hemilaminotomy. There is no significant spinal canal or neural foraminal narrowing. At L5-S1: There is mild facet hypertrophy with broad-based disc bulge. There isminimal spinal canal narrowing without neural foraminal stenosis. Impression dictated by: Crow Rosas M.D.07/30/2024 3:41 PM Dictation Location: [place] [address] Transcribed By: EVELIN 07/30/24 1541 Dictated By: Crow Rosas II, MD 07/30/24 1534 Signed By: 07/30/24 1541 [facility] Work Phone: XR hip LT min 2V(w/wo pelvis )*on 07-02-2024 XR hip LT min 2V(w/wo pelvis)* [facility] [place] [address] XRay Report Signed Patient: Lian Gordillo MR#: [id number] : 1970 Acct:[id number] Age/Sex: 53 / F ADM Date: 07/02/24 Loc: XD Room: Type: [facility] Attending Dr: Homa Presley APRN Copies to: Homa Presley APRN Ordering Provider: Homa Presley APRN Date of Service: 07/02/24 XR/XR hip LT min 2V(w/wo pelvis)*: M25.552 - Pain in left hip LEFT HIP - 2 views: CLINICAL HISTORY: Chronic low back pain left hip pain and numbness of left posterior thigh. COMPARISON: None FINDINGS: 6 no acute bony process or significant degenerative change involving the left hip. Left SI joint demonstrate degenerative change. XR/XR hip LT min 2V(w/wo pelvis)* IMPRESSION: NO ACUTE BONY PROCESS.. Impression dictated by: Melina Sanches Jr..O.07/02/2024 8:05 PM Dictation Location: [facility]-15 Transcribed By: EVELIN 07/02/242004 Dictated By: Junito Solis Jr, DO 07/02/242004 Signed By: 07/02/242004 Normal [facility] XR lumbar spine 6V w bending on 07-02-2024 XR lumbar spine 6V w bending [facility] [place] [address] [place] [address] XRay Report Signed Patient: Lian Gordillo MR#: [id number] : 1970 Acct:[id number] Age/Sex: 53 / F ADM Date: 07/02/24 Loc: XD Room: Type: [facility] Attending Dr: Homa Presley APRN Copies to: Homa Presley APRN Ordering Provider: Homa Presley APRN Date of Service: 07/02/24 XR/XR lumbar spine 6V w bending: M54.16 - Radiculopathy, lumbar region LUMBAR SPINE - 7 views CLINICAL HISTORY: Chronic low back pain left hip pain and numbness of left posterior thigh COMPARISON: None FINDINGS: Vertebral body heights appear maintained. Mild diffuse disc space narrowing with facet joint degenerative changes. No pathological motion on flexion or extension views. SI joints demonstrate degenerative change. XR/XR lumbar spine 6V w bending IMPRESSION: MILD DIFFUSE DEGENERATIVE DISC DISEASE. Impression dictated by: Junito Solis Jr., D.O.07/02/2024 8:06 PM Dictation Location: [facility] Transcribed By: EVELIN 07/02/242005 Dictated By: Junito Solis Jr, DO 07/02/242005 Signed By: 07/02/242005 Normal [facility] Provider Letteron 06-03-2024 Provider Letter Provider Letter June 03, 2024 LIAN GORDILLO [address] [place] [phone] : 1970 To Whom It May Concern, Patient can only work 3 hours per day due to medical, pending neurosurgery referral, if you have any questions please contact my office. Date of Illness: From: _ 05-19-24 To: _ pending neurosurgeon appointment May Return to Work On: Restrictions: _ Comments: _ Sincerely, [address] [address] [facility] Ambulatory Visit Summaryon 0 05-27-2024 Ambulatory Visit Summary Ambulatory Visit Summary LIAN GORDILLO :1970 Visit Date:05/27/2024 Ambulatory Visit Instructions Your Diagnosis Essential hypertension BMI 23.0-23.9, adult Former smoker Your Care Team Attending Physician - Demarco Ellis MD Primary Care Physician - Demarco Ellis MD This Is Your Medications List baclofen (baclofen 20 mg Tab) levothyroxine (levothyroxine 75 mcg (0.075 mg) Tab) losartan (losartan 100 mg Tab) mupirocin topical (mupirocin Top 2% Oint) pantoprazole (Pantoprazole [address] Tab) Procedures Performed Cystourethroscopy with dilation of urethral stricture (11/04/2011), Carpal tunnel release, Cholecystectomy and exploration of bile duct, Colonoscopy, Endocervical biopsy, Lumbar discectomy, Oophorectomy, Partial hysterectomy, Post-surgery back pain, Surgery. Discharge Vitals Temperature (Temporal Artery) 36.4 ?C Heart Rate (Peripheral) 76 Respiratory Rate 16 Blood Pressure 132/84 Height 163 cm Height 64 in Weight 61.2 kg Weight 134.64 lb BMI 23.03 What to do next Scheduled Follow-Up Appointments 2023 2:45 PM EDT With: Demarco Ellis MD Where: [address] [address]- Medications What How Much When Instructions Unchanged baclofen (baclofen 20 mg Tab) 1 Tablets By Mouth 3 times a day Duration: 90 Days Unchanged levothyroxine (levothyroxine 75 mcg (0.075 mg) Tab) See instructions TAKE 1 TABLET BY MOUTH EVERY DAY Unchanged losartan (losartan 100 mg Tab) 1 Tablets By Mouth Every day Unchanged mupirocin topical (mupirocin Top 2% Oint) 1 Application Topical 3 times a day Unchanged pantoprazole (Pantoprazole [address] Tab) See instructions TAKE 1 TABLET BY MOUTH EVERY DAY Allergies ketamine (Decreased heart rate) Problems Ongoing - Any problem that you are currently receiving treatment for. Anxiety states Back muscle spasm Bilateral carpal tunnel syndrome Colon cancer screening Dizziness Essential hypertension Former smoker Generalized headache Betzy thyroiditis, fibrous variant History of kidney stones History of UTI Mixed hyperlipidemia Nocturia Osteoarthritis Other specified dorsopathies, site unspecified Palpitation Pure hypercholesterolemia Sciatica Screening mammogram for breast cancer Ureteral stone with hydronephrosis Patient Survey You may receive a survey via text or e-mail asking about your office visit. Please share your experience with us by completing your survey. We appreciate your feedback and thank you for choosing us for your care. Normal [facility] Family Medicine Office/Clini c Noteon 05-27-2024 Family Medicine Office/Clinic Note Family Medicine Office/Clinic Note HPI Staff Lian is a 53 year old female presenting for follow up htn and for the functional capacity PT results so things can be pursued for her back having too much pain Patient is here for follow up on hypertension. How often are you checking your blood pressure? Doesnt check BP at home What are your average readings? N/A, Not checking at home Yearly BMP: ??_ History of Present Illness Here for follow up. -Reviewed paperwork. Review of Systems PHQ Score Initial Depression Screen Score: 1 SCORE Physical Exam Vitals & Measurements T: 36.4 ?C(Temporal Artery) HR: 76(Peripheral) RR: 16 BP: 132/84 SpO2: 100% HT: 64 in HT: 163 cm WT: 61.2 kg WT: 134.64 lb BMI: 23.03 General: alert, no acute distress ENMT: oral mucosa moist, Cardiovascular: regular rate and rhythm, normal peripheral perfusion Respiratory: Lungs CTA, respirations non labored Extremities: no deformity, no trauma Neurological: oriented x 4, LOC appropriate for age, CN II-XII intact, motor strength equal & normal bilaterally, speech normal Abdomen: Soft, Nontender, Non-distended, + BS Assessment/Plan 1. Back pain (M54.9: Dorsalgia, unspecified) Reviewed functional capacity. Patient qualifies for sedentary lifestyle and work. 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 Discussed that the patient may need to find a job that works best with her abilities. Patient believes that something else is wrong. Patient had back surgery in 2014/2015. Patient would like further imaging done. I think physical therapy and referral to neurosurgery is the best plan at this time. Will also refer to pain. Ordered: [facility] [place] External Ambulatory Referral [facility] [place] External Ambulatory Referral Physical Therapy Evaluation - External Facility 2. Essential hypertension (I10: Essential (primary) hypertension) Blood pressure is within normal limits. No concerns today. Ordered: [facility] [place] External Ambulatory Referral [facility] [place] External Ambulatory Referral Physical Therapy Evaluation - External Facility 3. BMI 23.0-23.9, adult (Z68.23: Body mass index [BMI] 23.0-23.9, adult) BMI education added Ordered: [facility] [place] External Ambulatory Referral [facility] [place] External Ambulatory Referral Physical Therapy Evaluation - External Facility 4. Former smoker (Z87.891: Personal history of nicotine dependence) Please continue to not smoke. Ordered: [facility] [place] External Ambulatory Referral [facility] [place] External Ambulatory Referral Physical Therapy Evaluation - External Facility Follow-up No qualifying data available Problem List/Past Medical History Ongoing Anxiety states Back muscle spasm Back pain Bilateral carpal tunnel syndrome Colon cancer screening Dizziness Essential hypertension Former smoker Generalized headache Betzy thyroiditis, fibrous variant History of kidney stones History of UTI Mixed hyperlipidemia Nocturia Osteoarthritis Other specified dorsopathies, site unspecified Palpitation Pure hypercholesterolemia Sciatica Screening mammogram for breast cancer Ureteral stone with hydronephrosis Historical No qualifying data Procedure/Surgical History Cystourethroscopy with dilation of urethral stricture (11/04/2011), Carpal tunnel release, Cholecystectomy and exploration of bile duct, Colonoscopy, Endocervical biopsy, Lumbar discectomy, Oophorectomy, Partial hysterectomy, Post-surgery back pain, Surgery. Medications baclofen 20 mg Tab, 20 mg= 1 tab(s), Oral, TID, 3 refills levothyroxine 75 mcg (0.075 mg) Tab, See Instructions losartan 100 mg Tab, 100 mg= 1 tab(s), Oral, Daily mupirocin Top 2% Oint, 1 jevon, Topical, TID, Self Directed Pantoprazole [address] Tab, See Instructions Allergies ketamine (Decreased heart rate) Social History Alcohol - Denies Alcohol Use, 01/11/2023 Substance Abuse - Denies Substance Abuse, 01/11/2023 Tobacco Former smoker, quit more than 30 days ago, quit 15 years ago Tobacco Use:. Never Smokeless Tobacco Use:. Ready to change: No. Household tobacco concerns: No., 05/27/2024 Family History Arthritis: Mother. Bipolar: Mother, Father and Sister. Diabetes mellitus type 2: Mother. Heart disease: Mother. High cholesterol: Mother and Brother. Hypertension: Mother. Schizoaffective disorder: Mother and Father. Stroke: Brother. Immunizations Vaccine Date Status Comments SARS-CoV-2 (COVID-19) mRNA BNT-162b2 vax 11/23/2020 Recorded 2023-06-19: TPV40 SARS-CoV-2 (COVID-19) mRNA BNT-162b2 vax 11/05/2020 Recorded 2023-06-19: TPV40 influenza virus vaccine, inactivated 08/18/2015 Recorded Normal [facility] Comment on above: Result Comment: Elec tronically Signed By: Demarco Ellis MD\.br\Date and Time Signed: 05/27/24 15:22 EDT Ambulatory Visit Summaryon 0 04-01-2024 Ambulatory Visit Summary Ambulatory Visit Summary LIAN GORDILLO :1970 Visit Date:04/01/2024 Ambulatory Visit Instructions Your Diagnosis Back muscle spasm Your Care Team Attending Physician - Demarco Ellis MD Primary Care Physician - Demarco Ellis MD This Is Your Medications List baclofen (baclofen 20 mg Tab) celecoxib (celecoxib 200 mg Cap) levothyroxine (levothyroxine 75 mcg (0.075 mg) Tab) losartan (losartan 100 mg Tab) mupirocin topical (mupirocin Top 2% Oint) pantoprazole (Pantoprazole [address] Tab) Procedures Performed Cystourethroscopy with dilation of urethral stricture (11/04/2011), Carpal tunnel release, Cholecystectomy and exploration of bile duct, Colonoscopy, Endocervical biopsy, Lumbar discectomy, Oophorectomy, Partial hysterectomy, Post-surgery back pain, Surgery. Discharge Vitals Heart Rate (Peripheral) 72 Respiratory Rate 16 Blood Pressure 110/64 Height 163 cm Height 64 in Weight 62.4 kg Weight 137.28 lb BMI 23.49 What to do next Scheduled Follow-Up Appointments Monday 4:00 PM EDT With: Caleb YO, Demarco Dao Where: [facility] [address] [place] [address]- \.br\ Medications\.br \ What How Much When Instructions\.b r\ Unchanged baclofen (baclofen 20 mg Tab) 1 Tablets By Mouth 3 times a day Duration: 90 Days\.br\ Unchanged celecoxib (celecoxib 200 mg Cap) 1 Capsules By Mouth 2 times a day\.br\ Unchanged levothyroxine (levothyroxine 75 mcg (0.075 mg) Tab) 1 Tablets By Mouth Every day\.br\ Unchanged losartan (losartan 100 mg Tab) 1 Tablets By Mouth Every day\.br\ Unchanged mupirocin topical (mupirocin Top 2% Oint) 1 Application Topical 3 times a day\.br\ Unchanged pantoprazole (Pantoprazole [address] Tab) See instructions TAKE 1 TABLET BY MOUTH EVERY DAY \.br\ Allergies\.br\ ketamine (Decreased heart rate)\.br\ Problems\.br\ Ongoing - Any problem that you are currently receiving treatment for.\.br\ Anxiety states\.br\ Back muscle spasm\.br\ Bilateral carpal tunnel syndrome\.br\ Colon cancer screening\.br\ Dizziness\.br\ Essential hypertension\.b r\ Former smoker\.br\ Generalized headache\.br\ Betzy thyroiditis, fibrous variant\.br\ History of kidney stones\.br\ History of UTI\.br\ Mixed hyperlipidemia\ .br\ Nocturia\.br\ Osteoarthritis\ .br\ Other specified dorsopathies, site unspecified\.br \ Palpitation\.br \ Pure hypercholestero lemia\.br\ Sciatica\.br\ Screening mammogram for breast cancer\.br\ Ureteral stone with hydronephrosis\ .br\ Patient Survey\.br\ You may receive a survey via text or e-mail asking about your office visit. Please share your experience with us by completing your survey. We appreciate your feedback and thank you for choosing us for your care.\.br\ \.br\ [facility] Medicine Office/Clini c Noteon 04-01-2024 Family Medicine Office/Clinic Note Family Medicine Office/Clinic Note Chief Complaint Get cleared for work HPI Staff Lian is a 53 year old female presenting release from restrictions at work 6-14 she was given lift restriction. Modify to allow for limited bending. History of Present Illness - Pt states she is still having issues. - Pain is worse at the end of the day. - Pt was bending and lifting despite the restrictions I placed on her last visit. Review of Systems PHQ Score Initial Depression Screen Score: 0 SCORE Physical Exam Vitals & Measurements HR: 72(Peripheral) RR: 16 BP: 110/64 HT: 64 in HT: 163 cm WT: 62.4 kg WT: 137.28 lb BMI: 23.49 General: alert, no acute distress ENMT: oral mucosa moist, Cardiovascular: regular rate and rhythm, normal peripheral perfusion Respiratory: Lungs CTA, respirations non labored Extremities: no deformity, no trauma, Stiff antalgic gait. Neurological: oriented x 4, LOC appropriate for age, CN II-XII intact, motor strength equal & normal bilaterally, speech normal Abdomen: Soft, Nontender, Non-distended, + BS Assessment/Plan 1. Back muscle spasm (M62.830: Muscle spasm of back) Pt needs a functional evaluation. - Will send to PT as the patient states she can bend and lift but it makes things worse. - We will write restrictions based on their recommendations. Ordered: Physical Therapy Evaluation - External Facility Follow-up No qualifying data available Problem List/Past Medical History Ongoing Anxiety states Back muscle spasm Bilateral carpal tunnel syndrome Colon cancer screening Dizziness Essential hypertension Former smoker Generalized headache Betzy thyroiditis, fibrous variant History of kidney stones History of UTI Mixed hyperlipidemia Nocturia Osteoarthritis Other specified dorsopathies, site unspecified Palpitation Pure hypercholesterolemia Sciatica Screening mammogram for breast cancer Ureteral stone with hydronephrosis Historical No qualifying data Procedure/Surgical History Cystourethroscopy with dilation of urethral stricture (11/04/2011), Carpal tunnel release, Cholecystectomy and exploration of bile duct, Colonoscopy, Endocervical biopsy, Lumbar discectomy, Oophorectomy, Partial hysterectomy, Post-surgery back pain, Surgery. Medications baclofen 20 mg Tab, 20 mg= 1 tab(s), Oral, TID, 3 refills celecoxib 200 mg Cap, 200 mg= 1 cap(s), Oral, BID levothyroxine 75 mcg (0.075 mg) Tab, 75 mcg= 1 tab(s), Oral, Daily, 1 refills losartan 100 mg Tab, 100 mg= 1 tab(s), Oral, Daily mupirocin Top 2% Oint, 1 jevon, Topical, TID Pantoprazole [address] Tab, See Instructions Allergies ketamine (Decreased heart rate) Social History Alcohol - Denies Alcohol Use, 01/11/2023 Substance Abuse - Denies Substance Abuse, 01/11/2023 Tobacco Former smoker, quit more than 30 days ago, quit 15 years ago Tobacco Use:. Never Smokeless Tobacco Use:. Ready to change: No. Household tobacco concerns: No., 04/01/2024 Family History Arthritis: Mother. Bipolar: Mother, Father and Sister. Diabetes mellitus type 2: Mother. Heart disease: Mother. High cholesterol: Mother and Brother. Hypertension: Mother. Schizoaffective disorder: Mother and Father. Stroke: Brother. Immunizations Vaccine Date Status Comments SARS-CoV-2 (COVID-19) mRNA BNT-162b2 vax 11/23/2020 Recorded 2023-06-19: TPV40 SARS-CoV-2 (COVID-19) mRNA BNT-162b2 vax 11/05/2020 Recorded 2023-06-19: TPV40 influenza virus vaccine, inactivated 08/18/2015 Recorded Normal [facility] Comment on above: Result Comment: Elec tronically Signed By: Caleb YO, Demarco Kowalski.br\Date and Time Signed: 04/01/24 15:58 EDT Family Medicine Office/Clini c Noteon 02-29-2024 Family Medicine Office/Clinic Note HPI Staff Lian is a 53 year old female presenting for a light duty work slip for her back Seen 02/18 w/ muscle spasms, medrol dosepak ordered and f/u 3 dyas, and then canceled f/u due to she was better She went back to work on Monday and planned to do a different job and they put her back to her job and she couldn't do that job so she needs a note for work that says no bending, no lifting etc... as that's still an issues. questions/concerns: discuss possible stopping the thyroid meds, since TSH normal History of Present Illness - See staff HPI. Physical Exam Vitals & Measurements T: 36.8 ?C(Oral) HR: 72(Peripheral) RR: 16 BP: 152/80 SpO2: 98% HT: 64 in HT: 163.2 cm WT: 61.1 kg WT: 134.42 lb BMI: 22.94 General: alert, no acute distress ENMT: oral mucosa moist, Cardiovascular: regular rate and rhythm, normal peripheral perfusion Respiratory: Lungs CTA, respirations non labored Extremities: no deformity, no trauma, TTP of the lower back. Neurological: oriented x 4, LOC appropriate for age, CN II-XII intact, motor strength equal & normal bilaterally, speech normal Abdomen: Soft, Nontender, Non-distended, + BS Assessment/Plan 1. Back muscle spasm (M62.830: Muscle spasm of back) - Light duty with no lifting and no bending 2. Betzy thyroiditis, fibrous variant (E06.3: Autoimmune thyroiditis) - Normal - Continue on Thyroid meds 3. BMI 22.0-22.9, adult (Z68.22: Body mass index [BMI] 22.0-22.9, adult) - BMI education given 4. Former smoker (Z87.891: Personal history of nicotine dependence) - Please continue not to smoke. Follow-up No qualifying data available Problem List/Past Medical History Ongoing Anxiety states Back muscle spasm Bilateral carpal tunnel syndrome Colon cancer screening Dizziness Essential hypertension Former smoker Generalized headache Betzy thyroiditis, fibrous variant History of kidney stones History of UTI Mixed hyperlipidemia Nocturia Osteoarthritis Other specified dorsopathies, site unspecified Palpitation Pure hypercholesterolemia Sciatica Screening mammogram for breast cancer Ureteral stone with hydronephrosis Historical No qualifying data Procedure/Surgical History Cystourethroscopy with dilation of urethral stricture (11/04/2011), Carpal tunnel release, Cholecystectomy and exploration of bile duct, Colonoscopy, Endocervical biopsy, Lumbar discectomy, Oophorectomy, Partial hysterectomy, Post-surgery back pain, Surgery. Medications baclofen 20 mg Tab, 20 mg= 1 tab(s), Oral, TID, 3 refills celecoxib 200 mg Cap, 200 mg= 1 cap(s), Oral, BID, Not taking levothyroxine 75 mcg (0.075 mg) Tab, 75 mcg= 1 tab(s), Oral, Daily, 1 refills losartan 100 mg Tab, 100 mg= 1 tab(s), Oral, Daily mupirocin Top 2% Oint, 1 jevon, Topical, TID, Self Directed Pantoprazole [address] Tab, See Instructions Allergies ketamine (Decreased heart rate) Social History Alcohol - Denies Alcohol Use, 01/11/2023 Substance Abuse - Denies Substance Abuse, 01/11/2023 Tobacco Former smoker, quit more than 30 days ago, quit 15 years ago Tobacco Use:. Ready to change: No. Household tobacco concerns: No., 02/29/2024 Family History Arthritis: Mother. Bipolar: Mother, Father and Sister. Diabetes mellitus type 2: Mother. Heart disease: Mother. High cholesterol: Mother and Brother. Hypertension: Mother. Schizoaffective disorder: Mother and Father. Stroke: Brother. 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 Date of Illness: From: _ To: _ May Return to Work On: Restrictions: _No lifting or bending Comments: _ Sincerely, Family Medicine [address] [address] Normal [facility] TSH With T4fr Reflexon 02-19 TSH Qn 3.81 m[IU]/L Normal 0.34-5.60 [facility] Comment on above: Performed By: #### [id number] #### [facility] [address] [place] [address] Family Medicine Office/Clini c Noteon 02-19-2024 Family Medicine Office/Clinic Note HPI Staff Lian is a 53 year old female presenting for acute visit Acute: low back pain, injury at home Pain characteristics: Pain location:low back across whole back more on the left side Intensity:06/27 Onset: monday was pulling up old carpet and felt something but went to bend over monday and felt sometihing go Medication used: tylenol, muscle relaxer, heating pad Thinks it's time for thyroid labs?? History of Present Illness - See staff HPI. - Pt has no urinary/bowel incontinence. - NO numbness of the lower extremities. Review of Systems PHQ Score Initial Depression Screen Score: 0 SCORE Physical Exam Vitals & Measurements T: 36.5 ?C(Temporal Artery) HR: 60(Peripheral) RR: 16 BP: 126/82 SpO2: 100% HT: 64 in HT: 163.2 cm WT: 59.1 kg WT: 130.02 lb BMI: 22.19 Tender to palpation of the Lumbar region of the back. LROM 2/2 pain Assessment/Plan 1. Back muscle spasm (M62.830: Muscle spasm of back) - Medrol/Tramadol - RICE - OTC meds as well. Ordered: methylPREDNISolone, = 1 packet(s), Oral, As Directed, as directed on package labeling, X 6 day(s), # 21 tab(s), Refills(s) 0, Pharmacy: [facility]/pharmacy #[id number], 163.2, cm, 02/19/24 16:51:00 EDT, Height/Length Dosing, 59.1, kg, 02/19/24 16:51:00 EDT, Weight Dosing tramadol, 50 mg = 1 tab(s), Oral, q12hr, PRN for pain, X 3 day(s), # 6 tab(s), Refills(s) 0, Pharmacy: [facility]/pharmacy #[id number], 163.2, cm, 02/19/24 16:51:00 EDT, Height/Length Dosing, 59.1, kg, 02/19/24 16:51:00 EDT, Weight Dosing TSH With T4fr Reflex 2. Betzy thyroiditis, fibrous variant (E06.3: Autoimmune thyroiditis) - Will recheck labs - Follow up in 3 days Ordered: methylPREDNISolone, = 1 packet(s), Oral, As Directed, as directed on package labeling, X 6 day(s), # 21 tab(s), Refills(s) 0, [id number], 163.2, cm, 02/19/24 16:51:00 EDT, Height/Length Dosing, 59.1, kg, 02/19/24 16:51:00 EDT, Weight Dosing tramadol, 50 mg = 1 tab(s), Oral, q12hr, PRN for pain, X 3 day(s), # 6 tab(s), Refills(s) 0, [id number], 163.2, cm, 02/19/24 16:51:00 EDT, Height/Length Dosing, 59.1, kg, 02/19/24 16:51:00 EDT, Weight Dosing TSH With T4fr Reflex 3. BMI 22.0-22.9, adult (Z68.22: Body mass index [BMI] 22.0-22.9, adult) - BMI education uploaded Ordered: methylPREDNISolone, = 1 packet(s), Oral, As Directed, as directed on package labeling, X 6 day(s), # 21 tab(s), Refills(s) 0, [id number], 163.2, cm, 02/19/24 16:51:00 EDT, Height/Length Dosing, 59.1, kg, 02/19/24 16:51:00 EDT, Weight Dosing tramadol, 50 mg = 1 tab(s), Oral, q12hr, PRN for pain, X 3 day(s), # 6 tab(s), Refills(s) 0, [id number], 163.2, cm, 02/19/24 16:51:00 EDT, Height/Length Dosing, 59.1, kg, 02/19/24 16:51:00 EDT, Weight Dosing TSH With T4fr Reflex 4. Former smoker (Z87.891: Personal history of nicotine dependence) - Please continue to not smoke. Ordered: methylPREDNISolone, = 1 packet(s), Oral, As Directed, as directed on package labeling, X 6 day(s), # 21 tab(s), Refills(s) 0, [id number], 163.2, cm, 02/19/24 16:51:00 EDT, Height/Length Dosing, 59.1, kg, 02/19/24 16:51:00 EDT, Weight Dosing tramadol, 50 mg = 1 tab(s), Oral, q12hr, PRN for pain, X 3 day(s), # 6 tab(s), Refills(s) 0, [id number], 163.2, cm, 02/19/24 16:51:00 EDT, Height/Length Dosing, 59.1, kg, 02/19/24 16:51:00 EDT, Weight Dosing TSH With T4fr Reflex Follow-up No qualifying data available Patient Education Back Exercises Problem List/Past Medical History Ongoing Anxiety states Back muscle spasm Bilateral carpal tunnel syndrome Colon cancer screening Dizziness Essential hypertension Former smoker Generalized headache Btezy thyroiditis, fibrous variant History of kidney stones History of UTI Mixed hyperlipidemia Nocturia Osteoarthritis Other specified dorsopathies, site unspecified Palpitation Pure hypercholesterolemia Sciatica Screening mammogram for breast cancer Ureteral stone with hydronephrosis Historical No qualifying data Procedure/Surgical History Cystourethroscopy with dilation of urethral stricture (11/04/2011), Carpal tunnel release, Cholecystectomy and exploration of bile duct, Colonoscopy, Endocervical biopsy, Lumbar discectomy, Oophorectomy, Partial hysterectomy, Post-surgery back pain, Surgery. Medications baclofen 20 mg Tab, 20 mg= 1 tab(s), Oral, TID, 3 refills celecoxib 200 mg Cap, 200 mg= 1 cap(s), Oral, BID, Not taking levothyroxine 75 mcg (0.075 mg) Tab, 75 mcg= 1 tab(s), Oral, Daily, 1 refills losartan 100 mg Tab, 100 mg= 1 tab(s), Oral, Daily Medrol Dosepack 4 mg Tab, 1 packet(s), Oral, As Directed mupirocin Top 2% Oint, 1 jevon, Topical, TID, Self Directed Pantoprazole [address] Tab, See Instructions traMADOL 50 mg Tab, 50 mg= 1 tab(s), Oral, q12hr, PRN Allergies ketamine (Decreased heart rate) Social History Alcohol - Denies Alcohol Use, 01/11/2023 Substance Abuse - Denies S (more content not included)... Normal [facility] Comment on above: Result Comment: Elec tronically Signed By: Caleb YO, Demarco Dao\.br\Date and Time Signed: 02/19/24 17:04 EDT Patient Educationon 02-19-20 Patient Education Orthopedics Back Exercises The following exercises strengthen the muscles that help to support the trunk (torso) and back. They also help to keep the lower back flexible. Doing these exercises can help to prevent or lessen existing low back pain. ? If you have back pain or discomfort, try doing these exercises 2?3 times each day or as told by your health care provider. ? As your pain improves, do them once each day, but increase the number of times that you repeat the steps for each exercise (do more repetitions). ? To prevent the recurrence of back pain, continue to do these exercises once each day or as told by your health care provider. Do exercises exactly as told by your health care provider and adjust them as directed. It is normal to feel mild stretching, pulling, tightness, or discomfort as you do these exercises, but you should stop right away if you feel sudden pain or your pain gets worse. Exercises Single knee to chest Repeat these steps 3?5 times for each le. Lie on your back on a firm bed or the floor with your legs extended. 2. Bring one knee to your chest. Your other leg should stay extended and in contact with the floor. 3. Hold your knee in place by grabbing your knee or thigh with both hands and hold. 4. Pull on your knee until you feel a gentle stretch in your lower back or buttocks. 5. Hold the stretch for 10?30 seconds. 6. Slowly release and straighten your leg. Pelvic tilt Repeat these steps 5?10 times: 1. Lie on your back on a firm bed or the floor with your legs extended. 2. Bend your knees so they are pointing toward the ceiling and your feet are flat on the floor. 3. Tighten your lower abdominal muscles to press your lower back against the floor. This motion will tilt your pelvis so your tailbone points up toward the ceiling instead of pointing to your feet or the floor. 4. With gentle tension and even breathing, hold this position for 5?10 seconds. Cat-cow Repeat these steps until your lower back becomes more flexible: 1. Get into a [id number] position on a firm bed or the floor. Keep your hands under your shoulders, and keep your knees under your hips. You may place padding under your knees for comfort. 2. Let your head hang down toward your chest. Contract your abdominal muscles and point your tailbone toward the floor so your lower back becomes rounded like the back of a cat. 3. Hold this position for 5 seconds. 4. Slowly lift your head, let your abdominal muscles relax, and point your tailbone up toward the ceiling so your back forms a sagging arch like the back of a cow. 5. Hold this position for 5 seconds. Press-ups Repeat these steps 5?10 times: 1. Lie on your abdomen (face-down) on a firm bed or the floor. 2. Place your palms near your head, about shoulder-width apart. 3. Keeping your back as relaxed as possible and keeping your hips on the floor, slowly straighten your arms to raise the top half of your body and lift your shoulders. Do not use your back muscles to raise your upper torso. You may adjust the placement of your hands to make yourself more comfortable. 4. Hold this position for 5 seconds while you keep your back relaxed. 5. Slowly return to lying flat on the floor. Bridges Repeat these steps 10 times: 1. Lie on your back on a firm bed or the floor. 2. Bend your knees so they are pointing toward the ceiling and your feet are flat on the floor. Your arms should be flat at your sides, next to your body. 3. Tighten your buttocks muscles and lift your buttocks off the floor until your waist is at almost the same height as your knees. You should feel the muscles working in your buttocks and the back of your thighs. If you do not feel these muscles, slide your feet 1?2 inches (2.5?5 cm) farther away from your buttocks. 4. Hold this position for 3?5 seconds. 5. Slowly lower your hips to the starting position, and allow your buttocks muscles to relax completely. If this exercise is too easy, try doing it with your arms crossed over your chest. Abdominal crunches Repeat these steps 5?10 times: 1. Lie on your back on a firm bed or the floor with your legs extended. 2. Bend your knees so they are pointing toward the ceiling and your feet are flat on the floor. 3. Cross your arms over your chest. 4. Tip your chin slightly toward your chest without bending your neck. 5. Tighten your abdominal muscles and slowly raise your torso high enough to lift your shoulder blades a tiny bit off the floor. Avoid raising your torso higher than that because it can put too much stress on your lower back and does not help to strengthen your abdominal muscles. 6. Slowly return to your starting position. Back lifts Re (more content not included)... Normal [facility] Provider Letteron 02-19-2024 Provider Letter February 19, 2024 LIAN GORDILLO [address] [place] [address] : 1970 To Whom It May Concern, Please excuse above patient from work. Date of Absence: From: 02/19/2024 To: 02/22/2024 May Return to Work On: 02/23/2024 Restrictions: Unable to physically work due to injury. Comments: Any questions, please call our office. Sincerely, Family [address] [address] Normal [facility] T3 Totalon 01-14-2024 T3 [Mass/Vol] 96 ng/dL Invalid Interpretation Code [id number] [facility] Comment on above: Result Comment: Perf ormed at: [facility] [address] [place], [place] [id number] PhD Juan Reddy Performed By: #### 1 [id number] #### [facility] [address] [place] [id number] T4 & TSHon 01-12-2024 TSH Qn 0.11 m[IU]/L Low 0.34-5.60 [facility] Comment on above: Performed By: #### 1 [id number] #### [facility] [address] [place] [address] T4 [Mass/Vol] 5.6 microgram/dL Normal 4.6-9.1 [facility] Comment on above: Performed By: #### 1 [id number] #### [facility] [address] [place] [address] Ambulatory Visit Summaryon 0 01-11-2024 Ambulatory Visit Summary LIAN GORDILLO :1970 Visit Date:01/11/2024 Ambulatory Visit Instructions Your Diagnosis Betzy thyroiditis, fibrous variant BMI 22.0-22.9, adult Former smoker Essential hypertension Your Care Team Attending Physician - Demarco Ellis MD Primary Care Physician - Demarco Ellis MD This Is Your Medications List levothyroxine (levothyroxine 75 mcg (0.075 mg) Tab) losartan (losartan 100 mg Tab) Contact prescribing physician if questions or concerns baclofen (baclofen 20 mg Tab) celecoxib (celecoxib 200 mg Cap) mupirocin topical (mupirocin Top 2% Oint) pantoprazole (Pantoprazole [address] Tab) Procedures Performed Cystourethroscopy with dilation of urethral stricture (11/04/2011), Carpal tunnel release, Cholecystectomy and exploration of bile duct, Colonoscopy, Endocervical biopsy, Lumbar discectomy, Oophorectomy, Partial hysterectomy, Post-surgery back pain, Surgery. Discharge Vitals Temperature (Temporal Artery) 36.5 ?C Heart Rate (Peripheral) 66 Respiratory Rate 16 Blood Pressure 118/70 Height 163.2 cm Height 64 in Weight 59.4 kg Weight 130.68 lb BMI 22.3 What to do next Scheduled Follow-Up Appointments 2023 2:45 PM EDT With: Demarco Ellis MD Where: [facility] Invalid Interpretation Code BMI 22.0-22.9, adult [facility] Family Medicine Office/Clini c Noteon 01-11-2024 Family Medicine Office/Clinic Note HPI Staff Lian is a 53 year old female presenting for follow up thyroid and recheck thyroid labs medication for BP is working, brought log with her. It's doing great Patient is here for follow up on Thyroid Disease. Do you have any of the following symptoms? Change in energy level? yes just tired yet Weight change? no Heat/cold intolerance? yes always cold but been like this for a couple years Hair/skin/nail changes? yes has new hair growth Change in bowels? no Last TSH: TSH: 0.01 mcIU/mL Low (11/06/23 16:47:00) T4 Free: 2.02 ng/dL High (06/19/23) History of Present Illness - Here for follow up. - Feels a little tired and is wondering if her values are off. - Wants to get her labs checked. Review of Systems PHQ Score Initial Depression Screen Score: 0 SCORE Physical Exam Vitals & Measurements T: 36.5 ?C(Temporal Artery) HR: 66(Peripheral) RR: 16 BP: 118/70 SpO2: 97% HT: 64 in HT: 163.2 cm WT: 59.4 kg WT: 130.68 lb BMI: 22.3 General: alert, no acute distress ENMT: oral mucosa moist, Cardiovascular: regular rate and rhythm, normal peripheral perfusion Respiratory: Lungs CTA, respirations non labored Extremities: no deformity, no trauma Neurological: oriented x 4, LOC appropriate for age, CN II-XII intact, motor strength equal & normal bilaterally, speech normal Abdomen: Soft, Nontender, Non-distended, + BS Assessment/Plan 1. 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 - Follow up PRN Ordered: T3 Total T4 & TSH 2. BMI 22.0-22.9, adult (Z68.22: Body mass index [BMI] 22.0-22.9, adult) - BMI education given Ordered: T3 Total T4 & TSH 3. Former smoker (Z87.891: Personal history of nicotine dependence) - Please continue to not smoke Ordered: T3 Total T4 & TSH 4. Essential hypertension (I10: Essential (primary) hypertension) - At goal. - Follow up PRN Ordered: T3 Total T4 & TSH Orders: levothyroxine, See Instructions, TAKE 1 TABLET BY MOUTH EVERY DAY, # 90 tab(s), Refills(s) 1, Pharmacy: [id number], 163.2, cm, 07/12/23 8:28:00 EDT, Height/Length Dosing, 58.4, kg, 07/12/23 8:28:00 EDT, Weight Dosing levothyroxine, 75 mcg = 1 tab(s), Oral, Daily, # 30 tab(s), Refills(s) 1, [id number], 163.2, cm, 01/11/24 15:23:00 EDT, Height/Length Dosing, 59.4, kg, 01/11/24 15:23:00 EDT, Weight Dosing losartan, 100 mg = 1 tab(s), Oral, Daily, # 90 tab(s), Refills(s) 0, [id number], 163.2, cm, 01/11/24 15:23:00 EDT, Height/Length Dosing, 59.4, kg, 01/11/24 15:23:00 EDT, Weight Dosing Follow-up No qualifying data available Problem List/Past Medical History Ongoing Anxiety states Back muscle spasm Bilateral carpal tunnel syndrome Colon cancer screening Dizziness Essential hypertension Former smoker Generalized headache Betzy thyroiditis, fibrous variant History of kidney stones History of UTI Mixed hyperlipidemia Nocturia Osteoarthritis Other specified dorsopathies, site unspecified Palpitation Pure hypercholesterolemia Sciatica Screening mammogram for breast cancer Ureteral stone with hydronephrosis Historical No qualifying data Procedure/Surgical History Cystourethroscopy with dilation of urethral stricture (11/04/2011), Carpal tunnel release, Cholecystectomy and exploration of bile duct, Colonoscopy, Endocervical biopsy, Lumbar discectomy, Oophorectomy, Partial hysterectomy, Post-surgery back pain, Surgery. Medications baclofen 20 mg Tab, 20 mg= 1 tab(s), Oral, TID, 3 refills celecoxib 200 mg Cap, 200 mg= 1 cap(s), Oral, BID levothyroxine 75 mcg (0.075 mg) Tab, 75 mcg= 1 tab(s), Oral, Daily, 1 refills losartan 100 mg Tab, 100 mg= 1 tab(s), Oral, Daily mupirocin Top 2% Oint, 1 jevon, Topical, TID, Self Directed Pantoprazole [address] Crowley, See Instructions Allergies ketamine (Decreased heart rate) Social History Alcohol - Denies Alcohol Use, 01/11/2023 Substance Abuse - Denies Substance Abuse, 01/11/2023 Tobacco Former smoker, quit more than 30 days ago, quit 15 years ago Tobacco Use:. Ready to change: No. Household tobacco concerns: No., 01/11/2024 Family History Arthritis: Mother. Bipolar: Mother, Father and Sister. Diabetes mellitus type 2: Mother. Heart disease: Mother. High cholesterol: Mother and Brother. Hypertension: Mother. Schizoaffective disorder: Mother and Father. Stroke: Brother. Immunizations Vaccine Date Status Comments SARS-CoV-2 (COVID-19) mRNA BNT-162b2 vax 11/23/2020 Recorded 2023-06-19: TPV40 SARS-CoV-2 (COVID-19) mRNA BNT-162b2 vax 11/05/2020 Recorded 2023-06-19: TPV40 influenza virus vaccine, inactivated 08/18/2015 Recorded Normal [facility] Comment on above: Result Comment: Elec tronically Signed By: Demarco Ellis MD\.br\Date and Time Signed: 01/11/24 15:40 EDT Physician Referralon 024 Physician Referral [id number]. [id number] Normal [facility] TSHon 11-07-2023 TSH Qn 0.01 m[IU]/L Low 0.34-5.60 [facility] Comment on above: Performed By: #### 1 [id number], [id number] #### [facility] [address] [place] [address] Ambulatory Visit Summaryon 0 11-06-2023 Ambulatory Visit Summary GORDILLO, LIAN :1970 Visit Date:11/06/2023 Ambulatory Visit Instructions Your Diagnosis Back muscle spasm BMI 22.0-22.9, adult Former smoker Your Care Team Attending Physician - Demarco Ellis MD Primary Care Physician - Demarco Ellis MD This Is Your Medications List baclofen (baclofen 20 mg Tab) celecoxib (celecoxib 200 mg Cap) levothyroxine (levothyroxine 100 mcg (0.1 mg) Tab) mupirocin topical (mupirocin Top 2% Oint) pantoprazole (Pantoprazole [address] Tab) Procedures Performed Cystourethroscopy with dilation of urethral stricture (11/04/2011), Carpal tunnel release, Cholecystectomy and exploration of bile duct, Colonoscopy, Endocervical biopsy, Lumbar discectomy, Oophorectomy, Partial hysterectomy, Post-surgery back pain, Surgery. Discharge Vitals Temperature (Temporal Artery) 36.7 ?C Heart Rate (Peripheral) 76 Respiratory Rate 16 Blood Pressure 170/96 Height 163.2 cm Height 64 in Weight 59.8 kg Weight 131.56 lb BMI 22.45 What to do next You Need to Complete the Following XR Spine Lumbosacral Minimum 4 Views, 11/06/23, Routine, Order for future visit, Transport Mode: Ambulatory, Reason: Back pain, No, Back muscle spasm Invalid Interpretation Code Former smoker, pp_set_radiolog y_subspecialty, Fregoso Roland\.br\ Someone Will Contact You Regarding These Appointments\.b r\ [facility] External Ambulatory Referral, Neurosurgery, 11/06/23 16:45:00 EST, Back muscle spasm [facility] Family Medicine Office/Clini c Noteon 11-06-2023 Family Medicine Office/Clinic Note HPI Staff Lian is a 53 year old female presenting for acute visit Acute back pain, last monday granddaughter left hover board out and she went the corner and tripped over it and went down onto the counter and it pulled the lower back, thought it was wroking itself out but it's bad today. has had 2 back surgeries in that area Pain characteristics: Pain location: lower back Intensity:6/10 increases with sitting Onset: week ago monday Medication used: baclofen, aleve, heating pad and just got some icy hot flu: refused questions/concerns: History of Present Illness Hurt her back when she tripped on her granddaughters skateboard. Pain has not improved in a week. Wants to make sure she did not make things worse. Review of Systems PHQ Score Initial Depression Screen Score: 0 SCORE Physical Exam Vitals & Measurements T: 36.7 ?C(Temporal Artery) HR: 76(Peripheral) RR: 16 BP: 170/96 SpO2: 98% HT: 64 in HT: 163.2 cm WT: 59.8 kg WT: 131.56 lb BMI: 22.45 General: alert, no acute distress ENMT: oral mucosa moist, Cardiovascular: regular rate and rhythm, normal peripheral perfusion Respiratory: Lungs CTA, respirations non labored Extremities: no deformity, no trauma, TTP of the paraspinal muscles on the R more than the left. Neurological: oriented x 4, LOC appropriate for age, CN II-XII intact, motor strength equal & normal bilaterally, speech normal Abdomen: Soft, Nontender, Non-distended, + BS Assessment/Plan 1. Back muscle spasm (M62.830: Muscle spasm of back) - Will do an xray and send to Neurosurgery for a review. - Continue meds as before. Ordered: [facility] External Ambulatory Referral XR Spine Lumbosacral Minimum 4 Views 2. BMI 22.0-22.9, adult (Z68.22: Body mass index [BMI] 22.0-22.9, adult) - bmi education given Ordered: [facility] External Ambulatory Referral XR Spine Lumbosacral Minimum 4 Views 3. Former smoker (Z87.891: Personal history of nicotine dependence) - Please continue to not smoke. Ordered: [facility] External Ambulatory Referral XR Spine Lumbosacral Minimum 4 Views Orders: Thyroid Stimulating Hormone Follow-up No qualifying data available Problem List/Past Medical History Ongoing Anxiety states Back muscle spasm Bilateral carpal tunnel syndrome Colon cancer screening Dizziness Essential hypertension Former smoker Generalized headache Betzy thyroiditis, fibrous variant History of kidney stones History of UTI Hypertensive urgency Mixed hyperlipidemia Nocturia Osteoarthritis Other specified dorsopathies, site unspecified Palpitation Pure hypercholesterolemia Sciatica Screening mammogram for breast cancer Ureteral stone with hydronephrosis Historical No qualifying data Procedure/Surgical History Cystourethroscopy with dilation of urethral stricture (11/04/2011), Carpal tunnel release, Cholecystectomy and exploration of bile duct, Colonoscopy, Endocervical biopsy, Lumbar discectomy, Oophorectomy, Partial hysterectomy, Post-surgery back pain, Surgery. Medications baclofen 20 mg Tab, 20 mg= 1 tab(s), Oral, TID, 5 refills celecoxib 200 mg Cap, 200 mg= 1 cap(s), Oral, BID, Not taking levothyroxine 100 mcg (0.1 mg) Tab, See Instructions mupirocin Top 2% Oint, 1 jevon, Topical, TID, Self Directed Pantoprazole 40 mg Tab, 40 mg= 1 tab(s), Oral, Daily Allergies ketamine (Decreased heart rate) Social History Alcohol - Denies Alcohol Use, 01/11/2023 Substance Abuse - Denies Substance Abuse, 01/11/2023 Tobacco quit 15 years ago Tobacco Use:. Ready to change: No. Household tobacco concerns: No., 11/06/2023 Family History Arthritis: Mother. Bipolar: Mother, Father and Sister. Diabetes mellitus type 2: Mother. Heart disease: Mother. High cholesterol: Mother and Brother. Hypertension: Mother. Schizoaffective disorder: Mother and Father. Stroke: Brother. Immunizations Vaccine Date Status Comments SARS-CoV-2 (COVID-19) mRNA BNT-162b2 vax 11/23/2020 Recorded 2023-06-19: TPV40 SARS-CoV-2 (COVID-19) mRNA BNT-162b2 vax 11/05/2020 Recorded 2023-06-19: TPV40 influenza virus vaccine, inactivated 08/18/2015 Recorded Normal [facility] Comment on above: Result Comment: Elec tronically Signed By: Caleb YO, Demarco Dao\.br\Date and Time Signed: 11/06/23 16:47 EST Patient Letter FTon 2022 Patient Letter [facility] September 06, 2023 LIAN GORDILLO [address] [place] [id number] : 1970 Dear Lian, We have tried contacting you in regards to your renal ultrasound and X-ray that was scheduled for 08/09/23 for ensure passage of your ureteral stone. According to our records you missed your imaging appointment at [facility] and you have no rescheduled. My office tried contacting you to reschedule without success. It is important for complete follow up imaging to ensure passage of your stone. Risk's include renal failure, obstruction and infection. Please contact my office at your earliest convenience and we will gladly reschedule your testing and follow up. Thank you for your prompt attention to this matter. Sincerely, Dr. Patricia Vega MD [facility] [address] [place] [address] Normal [facility] CHEMISTRYOrdered By: SYSTEM SYSTEM on 08-01-2023 TSH Qn mcIU/mL Low 0.34 - 5.60 mcIU/mL [facility] CHEMISTRYOrdered By: SYSTEM SYSTEM on 06-19-2023 Albumin [Mass/Vol] 4.5 g/dL Normal 3.3 - 5.0 gm/dL [facility] Albumin/Globulin [Mass ratio] 1.6 {ratio} Normal 1.1 - 2.2 [facility] ALP [Catalytic activity/Vol] 57 [iU]/d Normal 21 - 98 Int._Unit/L [facility] ALT No additional P-5'-P [Catalytic activity/Vol] 18 [iU]/d Normal 6 - 46 Int._Unit/L [facility] Anion gap [Moles/Vol] 8 mmol/L Normal 6 - 16 mEq/L [facility] AST [Catalytic activity/Vol] 23 [iU]/d Normal 5 - 43 Int._Unit/L [facility] Bilirubin [Mass/Vol] 0.2 mg/dL Normal 0.0 - 1.1 mg/dL [facility] Calcium [Mass/Vol] 9.4 mg/dL Normal 8.9 - 11. 1 mg/dL [facility] Chloride [Moles/Vol] 111 mmol/L Normal 101 - 1 11 mmol/L [facility] Cholesterol [Mass/Vol] 174 mg/dL Normal 120 - 200 mg/dL [facility] Cholesterol in HDL [Mass/Vol] 51 mg/dL Invalid Interpretation Code [facility] Comment on above: Interpretive Data: H DL > or equal to 60 mg/dL: Low cardiovascular risk HDL < 40 mg/dL : High cardiovascular risk Cholesterol in LDL [Mass/Vol] 104 mg/dL Normal <=129mg/dL [facility] Cholesterol in VLDL [Mass/Vol] 29 mg/dL Normal 7 - 40 mg/dL [facility] CO2 [Moles/Vol] 28 mmol/L Normal 21 - 31 mmol/L [facility] Creatinine [Mass/Vol] 0.6 mg/dL Normal 0.5 - 1.3 mg/dL [facility] Free T4 [Mass/Vol] 2.02 ng/dL High 0.58 - 1. 64 ng/dL [facility] GFR/1.73 sq M.predicted among non-blacks MDRD (S/P/Bld) [Vol rate/Area] 109 mL/min/1.73 m2 Normal >=59mL/min/1.73 m2 [facility] Chem S Comment on above: Interpretive Data: C hronic kidney disease could be indicated at eGFR's of less than 60 mL/min/1.73m2. Kidney failure is indicated at less than 15 mL/min/1.73m2. Globulin (S) [Mass/Vol] 2.9 g/dL Normal 1.4 - 4.0 gm/dL [facility] Glucose [Mass/Vol] 86 mg/dL Normal 55 - 199 mg/dL [facility] Comment on above: Interpretive Data: I f this glucose result represents a fasting glucose, interpretation should refer to the following reference range: 55-99 mg/dL Potassium [Moles/Vol] 3.9 mmol/L Normal 3.5 - 5.3 mmol/L [facility] Protein [Mass/Vol] 7.4 g/dL Normal 6.0 - 7.8 gm/dL [facility] Sodium [Moles/Vol] 143 mmol/L Normal 135 - 145 mmol/L [facility] Triglyceride [Mass/Vol] 143 mg/dL Normal <=149mg/dL [facility] TSH Qn mcIU/mL Low 0.34 - 5.60 mcIU/mL [facility] Urea nitrogen [Mass/Vol] 22 mg/dL High 5 - 21 mg/dL [facility] Urea nitrogen/Creatinine [Mass ratio] 37 mg/mg High 10 - 20 [facility] HEMATOLOGYOrdered By: SYSTEM SYSTEM on 06-19-2023 Basophils/100 WBC (Bld) 0.5 % Normal 0.0 - 2.0 % [facility] Basophils/Leukocytes Auto (Bld) [Pure # fraction] 0.0 E9/L Normal 0.0 - 0.2 E9/L [facility] Eosinophils/100 WBC (Bld) 3.6 % Normal 0.0 - 8.0 % [facility] Eosinophils/Leukocyt es Auto (Bld) [Pure # fraction] 0.2 E9/L Normal 0.0 - 0.5 E9/L [facility] Lymphocytes/100 WBC (Bld) 38.0 % Normal 14.0 - 50.0 % [facility] Lymphocytes/Leukocyt es Auto (Bld) [Pure # fraction] 2.3 E9/L Normal 1.0 - 4.0 E9/L [facility] Monocytes/100 WBC (Bld) 5.7 % Normal 4.0 - 14.0 % [facility] Monocytes/Leukocytes Auto (Bld) [Pure # fraction] 0.3 E9/L Normal 0.2 - 1.0 E9/L [facility] Neutrophils/100 WBC (Bld) 52.2 % Normal 36.0 - 75.0 % [facility] Neutrophils/Leukocyt es Auto (Bld) [Pure # fraction] 3.1 E9/L Normal 2.0 - 7.5 E9/L [facility] HEMATOLOGYOrdered By: Melinda Goel on 06-19-2023 Erythrocyte distribution width (RBC) [Ratio] 12.9 % Normal 10.9 - 14.2 % [facility] Hematocrit (Bld) [Volume fraction] 37.5 % Normal 34.0 - 46.0 % [facility] Hemoglobin (Bld) [Mass/Vol] 12.9 g/dL Normal 12.0 - 16.0 gm/dL [facility] MCH (RBC) [Entitic mass] 29.0 pg Normal 27.0 - 34.0 pg [facility] MCHC (RBC) [Mass/Vol] 34.4 g/dL Normal 31.4 - 36.0 gm/dL [facility] MCV (RBC) [Entitic vol] 84.2 fL Normal 80.0 - 100.0 fL [facility] Platelet mean volume (Bld) [Entitic vol] 8.0 fL Normal 6.4 - 10.8 fL [facility] Platelets (Bld) [#/Vol] 176.0 E9/L Normal 150.0 - 500.0 E9/L [facility] RBC (Bld) [#/Vol] 4.5 E12/L Normal 4.3 - 5.9 E12/L [facility] WBC corrected for nucl RBC Auto (Bld) [#/Vol] 6.0 E9/L Normal 4.0 - 11.0 E9/L [facility] CBC AUTO DIFFon 12-14-2021 BASO # 0.0 103/ul Normal 0.0-0.1 [facility] Comment on above: Performed By: #### C BC #### [facility] [address] [address] [address] Mar Casillas Basophils/100 WBC (Bld) 0.8 % Normal 0.2-2.0 [facility] Comment on above: Performed By: #### C BC #### [facility] [address] [address] [address] Mar Casillas EO # 0.3 103/ul Normal 0.0-0.7 [facility] Comment on above: Performed By: #### C BC #### [facility] [address] [address] [address] Mar Casillas Eosinophils/100 WBC (Bld) 4.8 % Normal 0.9-7.0 [facility] Comment on above: Performed By: #### C BC #### [facility] [address] [address] [address] Mar Casillas Erythrocyte distribution width (RBC) [Ratio] 11.9 % Normal 11.0-15.0 [facility] Comment on above: Performed By: #### C BC #### [facility] [address] [place] [address] Dr. Mar Casillas Hematocrit (Bld) [Volume fraction] 40.0 % Normal 36.0-48.0 [facility] Comment on above: Performed By: #### C BC #### [facility] [address] [address] [address] Mar Casillas Hemoglobin (Bld) [Mass/Vol] 13.5 g/dL Normal 12.0-16.0 [facility] Comment on above: Performed By: #### C BC #### [facility] [address] [place] [address] Dr. Mar Casillas IG # 0.01 10e3/ul Normal 0.00-0.03 [facility] Comment on above: Performed By: #### C BC #### [facility] [address] [place] [address] Dr. Mar Casillas IG % 0.2 % Normal 0.0-0.5 [facility] Comment on above: Performed By: #### C BC #### [facility] [address] [place] [address] Dr. Mar Casillas LYMPH # 2.1 103/ul Normal 1.2-3.8 [facility] Comment on above: Performed By: #### C BC #### [facility] [address] [place] [address] Dr. Mar Casillas Lymphocytes/100 WBC (Bld) 40.3 % Normal 20.5-60.0 [facility] Comment on above: Performed By: #### C BC #### [facility] [address] [place] [address] Dr. Mar Casillas MANUAL DIFF REQ NO Normal [facility] Comment on above: Performed By: #### C BC #### [facility] [address] [place] [address] Dr. Mar Casillas MCH (RBC) [Entitic mass] 28.9 pg Normal 26.7-34.0 [facility] Comment on above: Performed By: #### C BC #### [facility] [address] [place] [address] Dr. Mar Casillas MCHC (RBC) [Mass/Vol] 33.8 g/dL Normal 29.9-35.2 [facility] Comment on above: Performed By: #### C BC #### [facility] [address] [place] [address] Dr. Mar Casillas MCV (RBC) [Entitic vol] 85.7 fL Normal 81.0-99.0 [facility] Comment on above: Performed By: #### C BC #### [facility] [address] [place] [address] Dr. Mar Casillas MONO # 0.4 103/ul Normal 0.3-0.8 [facility] Comment on above: Performed By: #### C BC #### [facility] [address] [place] [address] Dr. Mar Casillas Monocytes/100 WBC (Bld) 6.7 % Normal 1.7-12.0 [facility] Comment on above: Performed By: #### C BC #### [facility] [address] [place] [address] Dr. Mar Casillas NEUT # 2.5 103/ul Normal 1.4-6.5 [facility] Comment on above: Performed By: #### C BC #### [facility] [address] [place] [address] Dr. Mar Casillas Neutrophils/100 WBC (Bld) 47.2 % Normal 43.0-75.0 [facility] Comment on above: Performed By: #### C BC #### [facility] [address] [place] [address] Dr. Mar Casillas Platelet mean volume (Bld) [Entitic vol] 9.3 fL Critically low 9.5-13.5 [facility] Comment on above: Performed By: #### C BC #### [facility] [address] [place] [address] Dr. Mar Casillas PLT 167 103/ul Normal 150-450 [facility] Comment on above: Performed By: #### C BC #### [facility] [address] [place] [address] Dr. Mar Casillas RBC 4.67 106/ul Normal 4.20-5.40 [facility] Comment on above: Performed By: #### C BC #### [facility] [address] [place] [address] Dr. Mar Casillas WBC 5.2 103/ul Normal 4.0-11.0 [facility] Comment on above: Performed By: #### C BC #### [facility] [address] [place] [address] Dr. Mar Casillas CRPon 12-14-2021 CRP [Mass/Vol] mg/L Normal <=1.[address] [facility] Comment on above: Performed By: #### T SH, FT3, CRP, LIPID, CMP #### [facility] [address] [address] [address] Mar Casillas FREE T3on 12-14-2021 FREE T3 3.18 pg/mlL Normal 2.77-5.27 [facility] Comment on above: Performed By: #### T SH, FT3, CRP, LIPID, CMP #### [facility] [address] [address] [address] Mar Casillas FREE T4on 12-14-2021 Free T4 [Mass/Vol] 2.11 ng/dL Normal 0.78-2.19 [facility] Comment on above: Performed By: #### F T4 #### [facility] [address] [place] [address] Dr. Mar Casillas LIPID PROFILEon 12-14-2021 CHOL-HDL RATIO NORM SEE BELOW Normal [facility] Comment on above: Result Comment: 3.3 - 4.4 LOW RISK 4.4 - 7.1 AVERAGE RISK 7.1 - 11.0 MODERATE RISK >11.0 HIGH RISK Performed By: #### T SH, FT3, CRP, LIPID, CMP #### [facility] [address] [place] [address] Dr. Mar Casillas Cholesterol [Mass/Vol] 157 mg/dL Normal <=200 [facility] Comment on above: Performed By: #### T SH, FT3, CRP, LIPID, CMP #### [facility] [address] [address] [address] Mar Casillas Cholesterol in HDL [Mass/Vol] 44 mg/dL Normal 40-60 [facility] Comment on above: Performed By: #### T SH, FT3, CRP, LIPID, CMP #### [facility] [address] [address] [address] Mar Casillas Cholesterol in LDL [Mass/Vol] 85.4 mg/dL Normal [facility] Comment on above: Performed By: #### T SH, FT3, CRP, LIPID, CMP #### [facility] [address] [address] [address] Mar Casillas Cholesterol.total/Ch olesterol in HDL [Mass ratio] 3.6 {ratio} Normal [facility] Comment on above: Performed By: #### T SH, FT3, CRP, LIPID, CMP #### [facility] [address] [place] [address] Dr. Mar Casillas HDL NORMAL > or = 60 mg/dl - LO W CARDIOVASCULAR RISK <40 mg/dl - HIGH CARDIOVASCULAR RISK Normal [facility] Comment on above: Performed By: #### T SH, FT3, CRP, LIPID, CMP #### [facility] [address] [place] [address] Dr. Mar Casillas LDL CALC NORMAL SEE BELOW Normal [facility] Comment on above: Result Comment: <100 mg/dl OPTIMAL 100 - 129 mg/dl NEAR OR ABOVE OPTIMAL 130 - 159 mg/dl BORDERLINE HIGH 160 - 189 mg/dl HIGH >190 mg/dl VERY HIGH Performed By: #### T SH, FT3, CRP, LIPID, CMP #### [facility] [address] [place] [address] Dr. Mar Casillas Triglyceride [Mass/Vol] 138 mg/dL Normal <=150 [facility] Comment on above: Performed By: #### T SH, FT3, CRP, LIPID, CMP #### [facility] [address] [place] [address] Dr. Mar Casillas VLDL CALC 27.6 mg/dL Normal [facility] Comment on above: Performed By: #### T SH, FT3, CRP, LIPID, CMP #### [facility] [address] [place] [address] Dr. Mar Casillas PROF 14(COMP METB)on 022 Albumin [Mass/Vol] 4.2 g/dL Normal 3.4-5.0 [facility] Comment on above: Performed By: #### T SH, FT3, CRP, LIPID, CMP #### [facility] [address] [place] [address] Dr. Mar Casillas Albumin/Globulin [Mass ratio] 1.5 {ratio} Normal [facility] Comment on above: Performed By: #### T SH, FT3, CRP, LIPID, CMP #### [facility] [address] [place] [address] Dr. Mar Casillas ALP [Catalytic activity/Vol] 81 U/L Normal 46-116 [facility] Comment on above: Performed By: #### T SH, FT3, CRP, LIPID, CMP #### [facility] [address] [place] [address] Dr. Mar Casillas ALT [Catalytic activity/Vol] 23 U/L Normal 14-59 [facility] Comment on above: Performed By: #### T SH, FT3, CRP, LIPID, CMP #### [facility] [address] [address] [address] Mar Casillas Anion gap [Moles/Vol] 14.1 mmol/L Normal [facility] Comment on above: Performed By: #### T SH, FT3, CRP, LIPID, CMP #### [facility] [address] [place] [address] Dr. Mar Casillas AST [Catalytic activity/Vol] 20 U/L Normal 15-37 [facility] Comment on above: Performed By: #### T SH, FT3, CRP, LIPID, CMP #### [facility] [address] [place] [address] Dr. Mar Casillas Bilirubin [Mass/Vol] 0.4 mg/dL Normal 0.2-1.3 [facility] Comment on above: Performed By: #### T SH, FT3, CRP, LIPID, CMP #### [facility] [address] [place] [address] Dr. Mar Casillas Calcium [Mass/Vol] 9.1 mg/dL Normal 8.5-10.1 [facility] Comment on above: Performed By: #### T SH, FT3, CRP, LIPID, CMP #### [facility] [address] [place] [address] Dr. Mar Casillas Chloride [Moles/Vol] 107 mmol/L Normal 98-107 [facility] Comment on above: Performed By: #### T SH, FT3, CRP, LIPID, CMP #### [facility] [address] [place] [address] Dr. Mar Casillas CO2 [Moles/Vol] 29.5 mmol/L Normal 22.0-30.0 [facility] Comment on above: Performed By: #### T SH, FT3, CRP, LIPID, CMP #### [facility] [address] [address] [address] Mar Casillas Creatinine [Mass/Vol] 0.62 mg/dL Normal 0.52-1.04 [facility] Comment on above: Performed By: #### T SH, FT3, CRP, LIPID, CMP #### [facility] [address] [address] [address] Mar Casillas EGFR-AF MALTESE >60 Normal >=60 [facility] Comment on above: Performed By: #### T SH, FT3, CRP, LIPID, CMP #### [facility] [address] [place] [address] Dr. Mar Casillas EGFR-NON AF MALTESE >60 Normal >=60 [facility] Comment on above: Performed By: #### T SH, FT3, CRP, LIPID, CMP #### [facility] [address] [place] [address] Dr. Mar Casillas Globulin (S) [Mass/Vol] 2.8 g/dL Normal [facility] Comment on above: Performed By: #### T SH, FT3, CRP, LIPID, CMP #### [facility] [address] [address] [address] Mar Casillas Glucose [Mass/Vol] 104 mg/dL Normal 74-106 [facility] Comment on above: Performed By: #### T SH, FT3, CRP, LIPID, CMP #### [facility] [address] [address] [address] Mar Casillas Potassium [Moles/Vol] 4.6 mmol/L Normal 3.4-5.0 [facility] Comment on above: Performed By: #### T SH, FT3, CRP, LIPID, CMP #### [facility] [address] [place] [address] Dr. Mar Casillas Protein [Mass/Vol] 7.0 g/dL Normal 6.1-8.2 [facility] Comment on above: Performed By: #### T SH, FT3, CRP, LIPID, CMP #### [facility] [address] [place] [address] Dr. Mar Casillas Sodium [Moles/Vol] 146 mmol/L Critically high 137-145 [facility] Comment on above: Performed By: #### T SH, FT3, CRP, LIPID, CMP #### [facility] [address] [place] [address] Dr. Mar Casillas Urea nitrogen [Mass/Vol] 16.0 mg/dL Normal 7.0-18.0 [facility] Comment on above: Performed By: #### T SH, FT3, CRP, LIPID, CMP #### [facility] [address] [place] [address] Dr. Mar Casillas Urea nitrogen/Creatinine [Mass ratio] 25.8 mg/mg Normal [facility] Comment on above: Performed By: #### T SH, FT3, CRP, LIPID, CMP #### [facility] [address] [place] [address] Dr. Mar Casillas TSHon 12-14-2021 TSH Qn m[IU]/L Critically low 0.470-4.680 [facility] Comment on above: Performed By: #### T SH, FT3, CRP, LIPID, CMP #### [facility] [address] [place] [address] Dr. Mar Casillas TSH RANGE SEE BELOW Normal [facility] Comment on above: Result Comment: <0.3 4 UIU/ml HYPERTHYROID 0.34-5.60 UIU/ml EUTHYROID >5.60 UIU/ml HYPOTHYROID Performed By: #### T SH, FT3, CRP, LIPID, CMP #### [facility] [address] [place] [address] Dr. Mar Casillas Vital Signs Date Time Vital Sign Value Performing Clinician Rajesh mena 08-06-2024 13:00-0500 Body height 165.1 cm Jay Caleb Work Phone: [facility] 08-06-2024 13:00-0500 Body mass index (BMI) [Ratio] 23.3 kg/m2 Jay Ellis Work Phone: [facility] 08-06-2024 13:00-0500 Body weight 63.67 kg Jay Caleb Work Phone: [facility] 07-02-2024 15:04-0400 Body height 165.1 cm [facility] 07-02-2024 15:04-0400 Body mass index (BMI) [Ratio] 22.3 kg/m2 [facility] 07-02-2024 15:04-0400 Body weight 60.78 kg [facility] 07-12-2023 08:24-0400 Blood Pressure Location Patricia Lue [facility] 07-12-2023 08:24-0400 Diastolic blood pressure 84 mm[Hg] Patricia Lue [facility] 07-12-2023 08:24-0400 Systolic blood pressure 124 mm[Hg] Patricia Lue [facility] Encounters Encounter Date Encounter Type Care Provider Facility Start: 01-20-2025 ambulatory Demarco Ellis Facility [facility] Start: 11-21-2024 ambulatory Rena Guzman Facility: [facility] Start: 08-19-2024 End: 08-19-2024 ambulatory Demarco Ellis Facility:[facility] Start: 08-06-2024 End: 08-06-2024 ambulatory Jay Ellis Work Phone: [facility] Work Phone: Start: 08-06-2024 End: 08-06-2024 Patient encounter procedure Jay Ellis Work Phone: [facility] Work Phone: Start: 07-30-2024 End: 07-30-2024 Patient encounter procedure Jay Ellis Work Phone: [facility] [address] Work Phone: Start: 07-30-2024 End: 07-30-2024 ambulatory Homa Presley Facility:[facility] Start: 07-11-2024 End: 07-11-2024 ambulatory Demarco Ellis Facility:[facility] Start: 07-02-2024 End: 07-02-2024 ambulatory Jay Sourav Caleb Work Phone: [facility] Work Phone: Start: 07-02-2024 End: 07-02-2024 Patient encounter procedure [facility] Work Phone: Start: 05-27-2024 End: 05-27-2024 ambulatory Demarco Ellis Facility:[facility] Start: 04-30-2024 Non-patient / Non-visit [facility] Work Phone: Start: 04-22-2024 End: 04-22-2024 ambulatory Demarco Ellis Facility:[facility] Start: 04-01-2024 End: 04-01-2024 ambulatory Demarco Ellis Facility:[facility] Start: 02-29-2024 End: 02-29-2024 ambulatory Demarco Ellis Facility:[facility] Start: 02-22-2024 End: 02-22-2024 ambulatory Demarco Ellis Facility:[facility] Start: 02-19-2024 End: 02-19-2024 Lab Drop off Demarco Ellis [facility] Start: 02-19-2024 End: 02-19-2024 ambulatory Demarco Ellis Facility:[facility] Start: 01-11-2024 End: 01-11-2024 Lab Drop off Demarco Ellis [facility] Start: 01-11-2024 End: 01-11-2024 ambulatory Demarco Ellis Facility:[facility] Start: 11-07-2023 ambulatory Demarco Ellis Facility :[facility] Start: 11-06-2023 End: 11-06-2023 Lab Drop off Demarco Ellis [facility] Start: 11-06-2023 End: 11-06-2023 ambulatory Demarco Ellis Facility:[facility] Start: 08-01-2023 End: 08-01-2023 Lab Drop off Rena Guzman [facility] Start: 07-12-2023 End: 07-12-2023 Patient encounter procedure Patricia Vega [facility] Start: 06-19-2023 End: 06-19-2023 Lab Drop off Demarco Ellis [facility] Start: 12-14-2021 End: 12-15-[address] XENA GARNER Facility: Start: 02-18-2018 End: 02-18-2018 Refill Jennifer Alegria MD Work Phone: Endocrinology Comment on above: Refill Request Procedures Date Procedure Procedure Detail Performing Clinician Start: 07-30-2024 MR lumbar spine wo con Jay Ellis Work Phone: Start: 07-02-2024 Plain X-ray of left hip Jay Ellis Work Phone: Start: 07-02-2024 X-ray of lumbar spin e, six views including bending views Jay Ellis Work Phone: Start: 11-04-2011 Cystourethroscopy wi th dilation of urethral stricture Patricia Vega Cholecystectomy and exploration of bile duct Demarco Ellis Colonoscopy Patricia Vega Decompression of median nerve Demarco Ellis Decompression of median nerve Patricia Vega Endocervical biopsy Patricia wooten Excision of lumbar intervertebral disc Patricia Vega Oophorectomy Demarco Ellis Post-surgery back pa in (finding) Patricia Vega Surgery (qualifier value) Sa rosalino Ellis Comment on above: revision back 03/2017 Plan of Treatment Date Care Activity Detail Author Start: 08-06-2024 Patient referral [facility] Work Phone: Start: 07-02-2024 Patient referral [facility] Work Phone: Start: 05-19-2021 Influenza vaccination INFLUENZ A (Season Ended) [facility] Start: 10-18-2019 DIABETES SCREEN DIABETES SCREEN [facility] Start: 2017 LIPID SCREEN LIPID SCREEN [facility] Start: 2012 Mammography MAMMOGRAM [facility] Start: 2002 HPV TESTING HPV TESTING [facility] Start: 1993 PAP TESTING PAP TESTING [facility] Start: 1991 Urine microalbumin profile DTAP,TDAP,TD (1 - Tdap) [facility] Start: 1990 HEPATITIS C SCREENING HEPATITIS C GA RHEA [facility] Start: 1990 HIV SCREENING HIV SCREENING [facility] Start: 1984 Adult depression screening assessment DEPRESSION SCREENING [facility] Patient referral [facility] Work Phone: XR Hip - left 2 Views [facility] XR Lumbar spine Views [facility] Immunizations Immunization Date Immunization Notes Care Provider Radha david 11-23-2020 SARS-CoV-2 (COVID-19 ) mRNA BNT-162b2 vax [facility] Comment on above: Result Comment: 2022: TPV40 11-05-2020 SARS-CoV-2 (COVID-19 ) mRNA BNT-162b2 vax Demarco Ellis [facility] Comment on above: Result Comment: 2022: TPV40 08-18-2015 influenza virus vaccine, unspecified formulation Demarco Ellis [facility] Payers Date Payer Category Payer Self-pay 2023 Unknown [id number] 2009 Private Health Insurance [facility] [id number] 2009-2019 O [id number] 1972 Unknown [id number] [id number] .2.593 1972 Unknown [id number] 2.16.840.1.631931.3.579 .2.727 1972 Unknown [id number] 2.16.840.1.416980.3.579 .2.727 1972 Unknown [id number] 2.16.840.1.786278.3.579 .2.727 1972 Unknown [id number] 2.16.840.1.794933.3.579 .2.727 1972 Unknown [id number] 2.16.840.1.438303.3.579 .2.727 1972 Unknown [id number] 2.16.840.1.331478.3.579 .2.727 1972 Unknown [id number] 2.16.840.1.776417.3.579 .2.727 1972 Unknown [id number] 2.16.840.1.917238.3.579 .2.727 1972 Unknown [id number] 2.16.840.1.322348.3.579 .2.727 1972 Unknown [id number] 2.16.840.1.577296.3.579 .2.727 1972 Unknown [id number] 2.16.840.1.763236.3.579 .2.7 1972 Unknown [id number] 2.16.840.1.441241.3.579 .2.727 1972 Unknown [id number] 2.16.840.1.835053.3.579 .2. 1972 Unknown [id number] 2.16.840.1.684196.3.579 .2.7 1972 Unknown [id number] 2.16.840.1.739690.3.579 .2. 1972 Unknown [id number] 2.16.840.1.782164.3.579 .2.727 1959 Unknown [id number] 1959 Unknown [id number] Medicare Medicare [id number] Unknown [id number] 2.16.840.1.329896.3.579 .2.531 Unknown [id number] 2.16840.1.285465.3.579 .2.531 Unknown Regular Insurance [id number] Social History Date Type Detail Facility Start: 10-18-2016 End: 02-19-2024 Tobacco smoking status NHIS [facility] Start: 10-18-2016 Tobacco use and exposure Never used [facility] Start: 10-18-2016 Alcohol intake Current non-dr groover runner of alcohol (finding) [facility] Start: 1970 Sex Assigned At [facility] Sex Assigned At Female [facility] Tobacco quit 15 years ag o Tobacco Use:. Ready to change: No. Household tobacco concerns: No. [facility] Tobacco smoking status No Smokin g Status Entered [facility] Start: 1970 Sex Assigned At Female [facility] Tobacco smoking stat [facility] Unknown if ever smoked [facility] Work Phone: Start: 07-31-2024 End: 08-06-2024 Sex Female (finding) [facility] Functional Status Date Assessment Result Facility 07-12-2023 Functional Status N/A [facility] Clinical Notes 07-12-2023 to 07-02-2024 Note Date & Type Note Facility 07-02-2024 Evaluation note Diagnosis Onset Date Resolution Left hip pain acute June 2:58pm Left lumbar radiculopathy acute July 02 2:58pm [facility] Work Phone: [phone] 225-555902-19-2024 Evaluation + Plan note Diagnostic Tests Pending * Thyroid Stimulating Hormone 11/06/23 Future Scheduled Tests Radiology* XR Spine Lumbosacral Minimum 4 Views 11/06/23 [facility] Hospital Discharge instructions Patient Education 07/12/2023 09:03:06 Dietary Guidelines to Help Prevent Kidney Stones Dietary Guidelines to Help Prevent Kidney Stones Kidney stones are deposits of minerals and salts that form inside your kidneys. Your risk of developing kidney stones may be greater depending on your diet, your lifestyle, the medicines you take, and whether you have certain medical conditions. Most people can lower their chances of developing kidney stones by following the instructions below. Your dietitian may give you more specific instructions depending on your overall health and the type of kidney stones you tend to develop. What are tips for following this plan? Reading food labels Choose foods with no salt added or low-salt labels. Limit your salt (sodium) intake to less than 1,500 mg a day. Choose foods with calcium for each meal and snack. Try to eat about 300 mg of calcium at each meal.Foods that contain 200 500 mg of calcium a serving include: ?8 oz (237 mL) of milk, lokneoo-nnitjpoatxgc-ydgfx milk, and calcium- fortifiedfruit juice. Calcium-fortified means that calcium has been added to these drinks. ?8 oz (237 mL) of kefir, yogurt, and soy yogurt. ?4 oz (114 g) of tofu. ?1 oz (28 g) of cheese. ?1 cup (150 g) of dried figs. ?1 cup (91 g) of cooked broccoli. ?One 3 oz (85 g) can of sardines or mackerel. Most people need 1,000 1,500 mg of calcium a day. Talk to your dietitian about how much calcium is recommended for you. Shopping Buy plenty of fresh fruits and vegetables. Most people do not need to avoid fruits and vegetables, even if these foods contain nutrients that may contribute to kidney stones. When shopping for convenience foods, choose: ?Whole pieces of fruit. ?Pre-made salads with dressing on the side. ?Low-fat fruit and yogurt smoothies. Avoid buying frozen meals or prepared deli foods. These can be high in sodium. Look for foods with live cultures, such as yogurt and kefir. Choose high-fiber grains, such as whole-wheat breads, oat bran, and wheat cereals. Cooking Do not add salt to food when cooking. Place a salt shaker on the table and allow each person to addhis or her own salt to taste. Use vegetable protein, such as beans, textured vegetable protein (TVP), or tofu, instead of meat inpasta, casseroles, and soups. Meal planning Eat less salt, if told by your dietitian. To do this: ?Avoid eating processed or pre-made food. ?Avoid eating fast food. Eat less animal protein, including cheese, meat, poultry, or fish, if told by your dietitian. To dothis: ?Limit the number of times you have meat, poultry, fish, or cheese each week. Eat a diet free of meat at least 2 days a week. ?Eat only one serving each day of meat, poultry, fish, or seafood. ?When you prepare animal protein, cut pieces into small portion sizes. For most meat and fish, one serving is about the size of the palm of your hand. Eat at least five servings of fresh fruits and vegetables each day. To do this: ?Keep fruits and vegetables on hand for snacks. ?Eat one piece of fruit or a handful of berries with breakfast. ?Have a salad and fruit at lunch. ?Have two kinds of vegetables at dinner. Limit foods that are high in a substance called oxalate. These include: ?Spinach (cooked), rhubarb, beets, sweet potatoes, and Ecuadorean chard. ?Peanuts. ?Potato chips, luxembourgish fries, and baked potatoes with skin on. ?Nuts and nut products. ?Chocolate. If you regularly take a diuretic medicine, make sure to eat at least 1 or 2 servings of fruits or vegetables that are high in potassium each day. These include: ?Avocado. ?Banana. ?[place], prune, carrot, or tomato juice. ?Baked potato. ?Cabbage. ?Beans and split peas. Lifestyle Drink enough fluid to keep your urine pale yellow. This is the most important thing you can do. Spread your fluid intake throughout the day. If you drink alcohol: ?Limit how much you use to: ?0 1 drink a day for women who are not . ?0 2 drinks a day for men. ?Be aware of how much alcohol is in your drink. In the [place] one drink equals one 12 oz bottle of beer (355 mL), one 5 oz glass of wine (148 mL), or one 1 oz glass of hard liquor (44 mL). Lose weight if told by your health care provider. Work with your dietitian to find an eating plan and weight loss strategies that work best for you. General information Talk to your health care provider and dietitian about taking daily supplements. You may be told thefollowing depending on your health and the cause of your kidney stones: ?Not to take supplements with vitamin C. ?To take a calcium supplement. ?To take a daily probiotic supplement. ?To take other supplements such as magnesium, fish oil, or vitamin B6. Take pfjg-ygk-vnbwkif and prescription medicines only as told by your health care provider. These include supplements. What foods should I limit? Limit your intake of the following foods, or eat them as told by your dietitian. Vegetables Spinach. Rhubarb. Beets. Canned vegetables. Pickles. Olives. Baked potatoes with skin. Grains Wheat bran. Baked goods. Salted crackers. Cereals high in sugar. Meats and other proteins Nuts. Nut butters. Large portions of meat, poultry, or fish. Salted, precooked, or cured meats, such as sausages, meat loaves, and hot dogs. Dairy Cheese. Beverages Regular soft drinks. Regular vegetable juice. Seasonings and condiments Seasoning blends with salt. Salad dressings. Soy sauce. Ketchup. Barbecue sauce. Other foods Canned soups. Canned pasta sauce. Casseroles. Pizza. Lasagna. Frozen meals. Potato chips. Pakistani fries. The items listed above may not be a complete list of foods and beverages you should limit. Contact a dietitian for more information. What foods should I avoid? Talk to your dietitian about specific foods you should avoid based on the type of kidney stones youhave and your overall health. Fruits Grapefruit. The item listed above may not be a complete list of foods and beverages you should avoid. Contact adietitian for more information. Summary Kidney stones are deposits of minerals and salts that form inside your kidneys. You can lower your risk of kidney stones by making changes to your diet. The most important thing you can do is drink enough fluid. Drink enough fluid to keep your urine pale yellow. Talk to your dietitian about how much calcium you should have each day, and eat less salt and animal protein as told by your dietitian. This information is not intended to replace advice given to you by your health care provider. Make sure you discuss any questions you have with your health care provider. Document Revised: 05/16/2022 Document Reviewed: 05/16/2022 [employer] Patient Education 2022 [employer]. Follow Up Care 06/29/2023 13:20:16 With:Gary YO, HECTOR Briones, URO Address: When:Within 1 Year(s) Comments:Dre & OPAL [facility] evaluation + Plan note No data available for this section [facility] Future App[facility]ments Appointment Date:07/25/2023 01:20:00 PM Scheduled Provider:Desmond KANG MD Location:[facility] Appointment Type:[facility] Appointment Date:08/01/2023 01:20:00 PM Scheduled Provider: Location:[facility] Appointment Type:FM Lab Draw [facility] evaluation + Plan note Future Appointments Appointment Date:07/11/2024 02:45:00 PM Scheduled Provider:Demarco Ellis MD Location:[facility] Appointment Type:FM Open Diagnostic Tests Pending * T4 & TSH 01/11/24 * T3 Total 01/11/24 Future Scheduled Tests Radiology* XR Spine Lumbosacral Minimum 4 Views 11/06/23 [facility] Future Appointments Appointment Date:02/22/2024 02:30:00 PM Scheduled Provider:Demarco Ellis MD Location:[facility] Appointment Type:FM Open Appointment Date:07/11/2024 02:45:00 PM Scheduled Provider:Demarco Ellis MD Location:[facility] Appointment Type:FM Open Diagnostic Tests Pending * TSH With T4fr Reflex 02/19/24 Future Scheduled Tests Radiology* XR Spine Lumbosacral Minimum 4 Views 11/06/23 [facility] Diagnosis Onset Date Resolution Status Left hip pain acute Left lumbar radiculopathy ac [facility] Work Phone: Hospital Discharge instructions No data available for this section [facility]* Referral to PT / OT / Speech (PT/OT/SP) Location: None [facility] Work Phone: Hospital Discharge instructionsAmbulatory Orders* Referral to Pain Management Location: None [facility] Work Phone: Progress note No data available for this section [facility] Summary Purpose Family History No Family History Records Found No data available for this section No data available for this section No data available for this section No data available for this section No data available for this section No data available for this section No Family History Records FoundNo Family History Records FoundNo Family History Records Found Advance Directives No Advanced Directives Records Found Advance Directive Response Recorded Date/ Time Advance Directives No June 24, 2024 10:20am Advance Directive Response Recorded Date/ Time Advance Directives No June 24, 2024 9:20am Chief Complaint and Reason for Visit Chief Complaint back pain Reason for Visit Left hip pain Left lumbar radiculopathy Chief Complaint back pain M54.16 M25.552 Reason for Visit Left hip pain Left lumbar radiculopathy Chief Complaint Admit Date back pain July 02, 2024 2 :58pm M54.16 M25.552 July 02, 2024 3 :47pm M54.16 July 30, 2024 11:11am Reason for Visit Admit Date Left hip pain July 02, 2024 2 :58pm Left lumbar radiculopathy July 02, 2024 2:58pm Additional Source Comments Source Comments (unrecognize d section and content) In the event this informatio n is protected by the Federal Confidentiality of Alcohol and Drug Abuse Patient Records regulations: The Federal rules restrict any use of the information to criminally investigate or prosecute any alcohol or drug abuse patient.[facility] Reason for Visit (unrecogniz ed section and content) Reason Comments Refill Request INFORMATION SOURCE (unrecogn ized section and content) DATE CREATED AUTHOR 06/29/2022 [facility] DATE CREATED AUTHOR AUTHOR'S ORGANIZ ATION 08/01/2024 [facility] DATE CREATED AUTHOR AUTHOR'S ORGANIZ ATION 08/21/2024 [facility] DATE CREATED AUTHOR AUTHOR'S ORGANIZ ATION 11/21/2024 [facility] Patient Care team informatio n (unrecognized section and content) Team Status: Active Member Role Status Dates Jay Ellis Primary Care Provider Active Team Status: Inactive Member Role Status Dates Homa Presley APRN Attending Provider Active Start: July 02, 2024 End: July 02, 2024 Jay Ellis Primary Care Provider Active Sta rt: July 02, 2024 End: July 02, 2024 Team Status: Inactive Member Role Status Dates Jay Ellis Primary Care Provider Active Sta rt: July 02, 2024 End: July 02, 2024 Homa Presley APRN Attending Provider Active Start: July 02, 2024 End: July 02, 2024 Team Status: Inactive Member Role Status Dates Jay Ellis Primary Care Provider Active Sta rt: July 30, 2024 End: July 30, 2024 Homa Presley APRN Attending Provider Active Start: July 30, 2024 End: July 30, 2024 Team Status: Active Member Role Status Dates Xena Garner MD Primary Care Provider Active S tart: April 30, 2024 Ramone Fernandez DO Attending Provider Active Sta rt: April 30, 2024 Team Status: Inactive Member Role Status Dates Jay Ellis Primary Care Provider Active Sta rt: August 06, 2024 End: August 06, 2024 Homa Presley APRN Attending Provider Active Start: August 06, 2024 End: August 06, 2024 Goals (unrecognized section and content) Goals may be documented in a n alternate section FOR RECORDS PERTAINING TO PATIENTS WHO ARE OR HAVE BEEN ENROLLED IN A CHEMICAL DEPENDENCY/SUBSTANCEABUSE PROGRAM, SOME INFORMATION MAY BE OMITTED. This clinical summary was aggregated from multiple sources. Caution should be exercised in using it in the provision of clinical care. This summary normalizes information from multiple sources, and as a consequence, information in this document may materially change the coding, format and clinical context of patient data. In addition, data may be omitted in some cases. CLINICAL DECISIONS SHOULD BE BASED ON THE PRIMARY CLINICAL RECORDS. [facility] [employer] provides no warranty or guarantee of the accuracy or completeness of information in this document.
== END 2024-11-23 10:49 | disposition home or self-care (01) ==
LOC: US 10:48
PROVIDERS: PCP Family Medicine; Visit Provider Nurse Practitioner
DX: E03.9 Hypothyroidism, unspecified (principal); R13.10 Dysphagia, unspecified
CPT/HCPCS: 76536

== ENCOUNTER 2025-05-09 22:47 | Emergency (ER) | payer BC, SELFPAY ==
--- OUTSIDE RECORDS SUMMARY | 2024-06-19 09:30 | XMS_ITS ---
[facility] Address [address] [place] [address] Care Team Providers Care Cook Mayonnaise Name Role Phone Grace Ndiaye Primary Care Provider REASON FOR VISIT EST CARE Encounters Encounter Location Date Provider Diagnosis [facility] [address] [place] [address] 06/19/2024 Grace Ndiaye Plan Of Treatment No Information Progress Notes * ARELY GORDILLOOB:1970 (54 yo F)Acc No.[id number]:06/19/2024 Progress Notes Patient: LIAN PHILLIPS Provider: Katelynn Ndiaye CNP :1970 A ge:53 Y S ex:Female Date:06/19/2024 Address:[address] [facility] Subjective: * Chief Complaints: * 1 . EST CARE. * Medical History: Objective: * Vitals: Assessment: Plan: * Treatment: Care Plan: * Problems: * Images: * Electronic signature of Krista Ndiaye CNP on 05/09/2025 at 11:22 PM EDT Sign off status: Pending * Provider: Katelynn Ndiaye CNP Date: 1 Generated for Garrett dimas/Zana/eTofeliaitting on: 0 05/09/2025 11:22 PM EDT
--- OUTSIDE RECORDS SUMMARY | 2025-05-08 23:59 | XMS_ITS | Continuity of Care Document ---
Author Organization [facility] Address [address] [place] [address] Care Team Providers Care Gas Desulfurizer Name Role Phone MICHEL BLOOD Primary Care Physician [phone] Encounter FT_AMBFIN [id number] Date(s): 05/08/25 - 05/08/[address] [address]- Encounter Diagnosis BMI 23.0-23.9, adult(Discharge Diagnosis) - 05/08/25 Former smoker(Discharge Diagnosis) - 05/08/25 GERD without esophagitis(Discharge Diagnosis) - 05/08/25 Hypothyroidism(Discharge Diagnosis) - 05/08/25 Discharge Disposition: Home (Routine DC) Attending Physician: MICHEL BLOOD CNP Encounter Type: Clinic Allergies, Adverse Reactions, Alerts Substance Criticality Severity Reaction Reaction Severity Status ketamine High criticality Severe Decreased heart rate Active Immunizations Given and Recorded Vaccine Date Status Refusal Reason SARS-CoV-2 (COVID-19) mRNA BNT-162b2 vax 1 11/23/20 Recorded SARS-CoV-2 (COVID-19) mRNA BNT-162b2 vax 2 11/05/20 Recorded influenza virus vaccine, inactivated 08/18/15 Mike rded 1Result Comment: 2023-06-19: TPV40 2Result Comment: 2023-06-19: TPV40 Medications baclofen 20 mg Tab 20 mg = 1 tab(s), Oral, TID, X 90 day(s), # 270 tab(s), Refills(s) 3, Pharmacy: [id number],163, cm, 11/21/24 13:49:00 EST, Height/Length Dosing, 62.9, kg, 11/21/24 13:49:00 EST, Weight Dosing Start Date: 02/04/25 Stop Date: 01/30/26 Status: Ordered Quantity: 270.0 Unit: tab(s) Repeat number: 4 levothyroxine 75 mcg (0.075 mg) Tab See Instructions, TAKE 1 TABLET BY MOUTH EVERY DAY, # 90 tab(s), Refills(s) 1, Pharmacy: [facility] [id number], 163, cm, 11/21/24 13:49:00 EST, Height/Length Dosing, 62.9, kg, 11/21/24 13:49:00 EST, WeightDosing Start Date: 02/04/25 Status: Ordered Quantity: 90.0 Unit: tab(s) Repeat number: 1 losartan 100 mg Tab See Instructions, TAKE 1 TABLET BY MOUTH EVERY DAY, # 90 tab(s), Refills(s) 4, [id number] 163, cm, 08/19/24 18:09:00 EST, Height/Length Dosing, 62.9, kg, 08/19/24 18:09:00 EST, Weight Dosing Start Date: 09/03/24 Status: Ordered Quantity: 90.0 Unit: tab(s) Repeat number: 5 mupirocin Top 2% Oint 1 bright, Topical, TID, 30 gram, Refill(s) 0 Start Date: 01/11/23 Status: Ordered Quantity: 30.0 Unit: g Repeat number: 1 omeprazole 40 mg Cap-DR 40 mg = 1 cap(s), Oral, Daily, # 90 cap(s), Refills(s) 4, [id number] 163, cm, 11/21/24 13:49:00 EST, Height/Length Dosing, 62.9, kg, 11/21/24 13:49:00 EST, Weight Dosing Start Date: 02/24/25 Status: Ordered Quantity: 90.0 Unit: cap(s) Repeat number: 5 Indications: Hypothyroidism, unspecified; Acute pharyngitis, unspecified; Body mass index [BMI] 23.0-23.9, adult; Other specified health status; Pantoprazole [address] Tab See Instructions, TAKE 1 TABLET BY MOUTH EVERY DAY, # 90 tab(s), Refills(s) 1, Pharmacy: [id number], 163, cm, 08/19/24 18:09:00 EST, Height/Length Dosing, 62.9, kg, 08/19/24 18:09:00 EST, Weight Dosing Start Date: 11/05/24 Status: Ordered Quantity: 90.0 Unit: tab(s) Repeat number: 2 Problem List Condition Confirmation Course Effective Dates Status Health Status Informant Anxiety states Confirmed Active Back pain Confirmed Active BMI 23.0-23.9, adult Confirmed Active Bilateral carpal tunnel syndrome Confirmed Active Other specified dorsopathies, site unspecified Confirmed Active Dizziness Confirmed Active Essential hypertension Confirmed Active Former smoker Confirmed Active Betzy thyroiditis, fibrous variant Confirmed Active Generalized headache Confirmed Active History of kidney stones Confirmed Active History of UTI Confirmed Active Hypothyroidism Confirmed Active Mixed hyperlipidemia Confirmed Active Nocturia Confirmed Active Ureteral stone with hydronephrosis Confirmed Active Osteoarthritis Confirmed Active Palpitation Confirmed Active Pure hypercholesterolemia Confirmed Active Sciatica Confirmed Active Back muscle spasm Confirmed Active Procedures Procedure Date Related Diagnosis Body Site Status Cysto/UD 11/04/11 Completed Carpal tunnel release Com pleted Cholecystectomy and explorat ion of bile duct Completed Colonoscopy Completed Endocervical biopsy Compl eted Lumbar discectomy Complet ed Oophorectomy Completed Partial hysterectomy Comp leted Post-surgery back pain Co mpleted Surgery 1 Completed 1revision back 03/2017 Social History Social History Type Response Smoking Status Former smoker, quit more than 30 days ago; Tobacco Use: quit 15 years ago;Never; Ready to change: No; Concerns about tobacco use in household: No entered on: 05/08/25 Sex Female Sex Representation Female (finding) Hospital Discharge Instructions Patient Education 05/08/2025 14:51:53 Hypothyroidism Hypothyroidism Hypothyroidism is when the thyroid gland does not make enough of certain hormones. This is called an underactive thyroid. The thyroid gland is a small gland located in the lower front part of the neck, just in front of the windpipe (trachea). This gland makes hormones that help control how the bodyuses food for energy (metabolism) as well as how the heart and brain function. These hormones also play a role in keeping your bones strong. When the thyroid is underactive, it produces too little ofthe hormones thyroxine (T4) and triiodothyronine (T3). What are the causes? This condition may be caused by: ??? Betzy's disease. This is a disease in which the body's disease-fighting system (immune system) attacks the thyroid gland. This is the most common cause. ??? Viral infections. ??? . ??? Certain medicines. ??? defects. ??? Problems with a gland in the center of the brain (pituitary gland). ??? Lack of enough iodine in the diet. Other causes may include: ??? Past radiation treatments to the head or neck for cancer. ??? Past treatment with radioactive iodine. ??? Past exposure to radiation in the environment. ??? Past surgical removal of part or all of the thyroid. What increases the risk? You are more likely to develop this condition if: ??? You are female. ??? You have a family history of thyroid conditions. ??? You use a medicine called lithium. ??? You take medicines that affect the immune system (immunosuppressants). What are the signs or symptoms? Common symptoms of this condition include: ??? Not being able to tolerate cold. ??? Feeling as though you have no energy (lethargy). ??? Lack of appetite. ??? Constipation. ??? Sadness or depression. ??? Weight gain that is not explained by a change in diet or exercise habits. ??? Menstrual irregularity. ??? Dry skin, coarse hair, or brittle nails. Other symptoms may include: ??? Muscle pain. ??? Slowing of thought processes. ??? Poor memory. How is this diagnosed? This condition may be diagnosed based on: ??? Your symptoms, your medical history, and a physical exam. ??? Blood tests. You may also have imaging tests, such as an ultrasound or MRI. How is this treated? This condition is treated with medicine that replaces the thyroid hormones that your body does not make. After you begin treatment, it may take several weeks for symptoms to go away. Follow these instructions at home: ??? Take eplk-vna-ccxunlb and prescription medicines only as told by your health care provider. ??? If you start taking any new medicines, tell your health care provider. ??? Keep all follow-up visits as told by your health care provider. This is important. ??? As your condition improves, your dosage of thyroid hormone medicine may change. ??? You will need to have blood tests regularly so that your health care provider can monitor your condition. Contact a health care provider if: ??? Your symptoms do not get better with treatment. ??? You are taking thyroid hormone replacement medicine and you: ??? Sweat a lot. ??? Have tremors. ??? Feel anxious. ??? Lose weight rapidly. ??? Cannot tolerate heat. ??? Have emotional swings. ??? Have diarrhea. ??? Feel weak. Get help right away if: ??? You have chest pain. ??? You have an irregular heartbeat. ??? You have a rapid heartbeat. ??? You have difficulty breathing. These symptoms may be an emergency. Get help right away. Call 911. ??? Do not wait to see if the symptoms will go away. ??? Do not drive yourself to the hospital. Summary ??? Hypothyroidism is when the thyroid gland does not make enough of certain hormones (it is underactive). ??? When the thyroid is underactive, it produces too little of the hormones thyroxine (T4) and triiodothyronine (T3). ??? The most common cause is Betzy's disease, a disease in which the body's disease-fighting system (immune system) attacks the thyroid gland. The condition can also be caused by viral infections, medicine, , or past radiation treatment to the head or neck. ??? Symptoms may include weight gain, dry skin, constipation, feeling as though you do not have energy, and not being able to tolerate cold. ??? This condition is treated with medicine to replace the thyroid hormones that your body does notmake. This information is not intended to replace advice given to you by your health care provider. Make sure you discuss any questions you have with your health care provider. Document Revised: 09/06/2022 Document Reviewed: 09/06/2022 [employer] Patient Education ?? 2023 [employer]. Follow Up Care 05/06/2025 09:56:04 With:MICHEL BLOOD CNP, FAM Address: [address] [place] [phone] [facility] (1) When:2 weeks Comments:GERD Patient Care team information Care Team Personnel Name: MICHEL BLOOD CNP Position: [facility] Ambulatory - Primary Care - BRIGHT Member Role: Primary Care Physician Address: [address] [place] [phone] Telecom: Care Team Related Persons Name: SANAM GORDILLO Insurance Providers Guarantor name: LIAN GORDILLO [employer] [facility] Information #: 1 Payer: [place] Payer Identifier: [id number] Member Number: [id number] Group Number: [id number] Subscriber Identifier: [id number] Relationship to Subscriber: Self Coverage Type: MEDICARE Coverage Verification Date: 25 Telecom: [phone] Address: [facility] [id number] [address]
--- OUTSIDE RECORDS SUMMARY | 2025-05-09 23:22 | XMS_ITS | CCD ---
Author Organization [facility] Care Team Providers Care Body Builder Apprentice Name Role Phone Xena Garner MD Primary Care Provider DR XENA GARNER Admitting Unavailable CASEY, DR XENA Wooten Attending Unavailable CASEY, DR XENA Wooten Primary Care Unavailable CASEY, DR XENA Wooten Consulting Unavailable Demarco Ellis. Primary Care Physician [phone] Jay Ellis Primary Care Provider RENNY Presley Attending Provider Homa Presley Attending Unavailable Caleb, Jay H Primary Care Unavailable Sakina, Homa Admitting Unavailable Homa Presley Attending Unavailable Caleb, Jay H Primary Care Unavailable Akialovskaya, Homa Admitting Unavailable Ross, Jay H Primary Care Provider Homa Presley APRN Attending Provider Demarco Ellis Attending Unavailable Caleb, Demarco E. Admitting Unavailable Caleb, Demarco E. Attending Unavailable Caleb, Demarco E. Attending Unavailable Caleb, Demarco E. Admitting Unavailable Ross, Demarco E. Admitting Unavailable Ross, Demarco E. Attending Unavailable Caleb, Demarco E. Attending Unavailable Ross, Demarco E. Attending Unavailable Caleb, Demarco E. Attending Unavailable Caleb, Demarco E. Attending Unavailable Caleb, Demarco E. Attending Unavailable Megan, CARTRIDGE LOADER Rena L Admitting Unavailable Megan, CARTRIDGE LOADER Rena L Attending Unavailable Caleb, Demarco E. Attending Unavailable Megan, Rena L Attending Unavailable Megan, Rena L Admitting Unavailable Megan, Rena L Attending Unavailable Megan, Rena L Attending Unavailable Caleb, Demarco E. Attending Unavailable Demarco Ellis Attending Unavailable Demarco Ellis Attending Unavailable Demarco Ellis Attending Unavailable Demarco Ellis Attending Unavailable MICHEL BLOOD Attending Unavailable Demarco Ellis Attending Unavailable Demarco Ellis Attending Unavailable Allergies Allergy Classification Reported Allergen(s) Allergy Type Date of Onset Reaction(s) Facility (8 sources) Ketamine; Translations: [ketamine] Drug Allergy Bradycardia (disorder) [facility] Medications Current Medications Medication Drug Class(es) [...] TID, # 90 tab(s), Refills(s) 5, Pharmacy: [facility]/pharmacy #[id number] Start Date: 01/11/23 Status: Ordered celecoxib [...] Daily, # 90 tab(s), Refills(s) 1, Pharmacy: [facility]/pharmacy #[id number], 163.2, cm, 01/11/24 15:23:00 EDT, Height/Length Dosing, 59.4, kg, 01/11/24 15:23:00 EDT, Weight Dosing Start Date: 01/15/24 Status: Ordered Start: 01-11-2024 take 1 tablet by eula th once daily levothyroxine 75 mcg (0.075 mg) Tab 75 mcg = 1 tab(s), Oral, Daily, # 30 tab(s), Refills(s) 1, [id number] 163.2, cm, 01/11/24 15:23:00 EDT, Height/Length Dosing, 59.4, kg, 01/11/24 15:23:00 EDT, Weight Dosing Start Date: 01/11/24 Status: Ordered Start: 10-30-2023 take 1 tablet by eula once daily levothyroxine 100 mcg (0.1 mg) Tab See Instructions, TAKE 1 TABLET BY MOUTH EVERY DAY, # 90 tab(s), Refills(s) 1, Pharmacy: [facility] [id number], 163.2, cm, 07/12/23 8:28:00 EDT, Height/Length Dosing, 58.4, kg, 07/12/23 8:28:00 EDT, Weight Dosing Start Date: 10/30/23 Status: Ordered Start: 06-21-2023 take 1 tablet by eula once daily levothyroxine 125 mcg (0.125 mg) Tab 125 mcg = 1 tab(s), Oral, Daily, # 90 tab(s), Refills(s) 0, [id number] 163.2, cm, 06/19/23 14:23:00 EDT, Height/Length Dosing, 57.8, kg, 06/19/23 14:23:00 EDT, Weight Dosing Start Date: 06/21/23 Status: Ordered Start: 01-31-2023 take 1 tablet by eula once daily levothyroxine 150 mcg (0.15 mg) Tab 150 mcg = 1 tab(s), Oral, Daily, # 90 tab(s), Refills(s) 1, [id number] Start Date: 01/31/23 Status: Ordered take 1 tablet by eula once daily before breakfast levothyroxine (SYNTHROID) 150 [...] Daily, # 90 tab(s), Refills(s) 0, Pharmacy: [facility]/pharmacy #[id number], 163.2, cm, 01/11/24 15:23:00 EDT, Height/Length Dosing, 59.4, kg, 01/11/24 15:23:00 EDT, Weight Dosing Start Date: 01/11/24 Status: Ordered methylPREDNISolone 4 mg oral tablet (1 source) Corticosteroid Start: 02-19-2024 End: 02-25-2024 Medrol Dosepack 4 mg Tab = 1 packet(s), Oral, As Directed, as directed on package labeling, X 6 day(s), # 21 tab(s), Refills(s) 0, Pharmacy: [facility]/pharmacy #[id number], 163.2, cm, 02/19/24 16:51:00 EDT, Height/Length [...] DAY, # 30 tab(s), Refills(s) 11, Pharmacy: [id number], 163.2, cm, 11/06/23 16:31:00 EST, Height/Length Dosing, 59.8, kg, 11/06/23 16:31:00 EST, Weight Dosing Start Date: 11/15/23 Status: Ordered Start: 01-11-2023 take 1 tablet by eula once daily Pantoprazole [address] Tab [...] day(s), # 6 tab(s), Refills(s) 0, Pharmacy: [facility]/pharmacy #[id number], 163.2, cm, 02/19/24 16:51:00 EDT, Height/Length [...] 1 tablet by eula th once daily. hydroCHLOROthiazide 25 mg / losartan [...] Results Test Name Value Interpretation Reference Range Facil ity Reminderson 11-25-2024 Reminders Reminders From: Rena Samaniego To: [facility] - Clinical; Sent: 11/25/2024 10:30:48 EDT Show up: 11/25/2024 10:31:00 EDT Subject: Ambulatory Reminder Due Date/Time: 11/26/2024 10:30:00 EDT thyroid labs are all normal Results: Date Result Name Value Ref Range 11/21/2024 14:15 TSH 4.98 mcIU/mL (0.34 - 5.60) 11/21/2024 14:15 T4 Free 1.04 ng/dL (0.58 - 1.64) 11/21/2024 14:15 T3 Free 2.5 pg/mL (2.0-4.4 - ) From: Hanny Rod M.A. ([facility] - Clinical) To: Rena Samaniego; Sent: 11/25/2024 13:08:13 EDT Show up: 11/25/2024 13:06:00 EDT Subject: RE: Ambulatory Reminder understands Normal [facility] T3 Freeon 11-23-2024 Free T3 [Mass/Vol] 2.5 pg/mL Invalid Interpretation Code 2.0-4.4 [facility] Comment on above: Result Comment: Perf ormed at: [facility] [address] [id number] PhD Juan Reddy Performed By: #### 2 [id number] #### [facility] [address] [place] [address] Ambulatory Visit Summaryon 0 11-21-2024 Ambulatory Visit Summary Ambulatory Visit Summary LIAN GORDILLO :1970 Visit Date:11/21/2024 Ambulatory Visit Instructions Your Diagnosis BMI 23.0-23.9, adult Non-smoker Hypothyroidism Your Care Team Attending Physician - Rena Samaniego Primary Care Physician - Demarco Ellis MD [...] Post-surgery back pain, Surgery. Discharge Vitals Temperature (Tympanic) 36.8 ???C Heart Rate (Peripheral) 80 Respiratory Rate 18 Blood Pressure 138/74 Height 163 cm Height 64 in Weight 62.90 kg Weight 138.671 lb BMI 23.67 What to do next Scheduled Follow-Up Appointments 2024 1:40 PM EDT With: Rena Samaniego Where: [address] [address]- Monday 5:30 PM EDT With: Demarco Ellis MD Where: [address] [address]- Medications What How Much When Instructions Unchanged levothyroxine (levothyroxine 75 mcg (0.075 mg) Tab) See instructions TAKE 1 TABLET BY MOUTH EVERY DAY Unchanged losartan (losartan 100 mg Tab) See instructions TAKE 1 TABLET BY MOUTH EVERY DAY Unchanged mupirocin topical (mupirocin Top 2% Oint) 1 Application Topical 3 times a day Unchanged pantoprazole (Pantoprazole [address] Tab) See instructions TAKE 1 TABLET BY MOUTH EVERY DAY Allergies ketamine (Decreased heart rate) Problems Ongoing - Any problem that you are currently receiving treatment for. Anxiety states Back muscle spasm Back pain Bilateral carpal tunnel syndrome Colon cancer screening Dizziness Essential hypertension Former smoker Generalized headache Betzy thyroiditis, fibrous variant History of kidney stones History of UTI Hypothyroidism Mixed hyperlipidemia Nocturia Osteoarthritis Other specified dorsopathies, site unspecified Palpitation Pure hypercholesterolemia Sciatica Screening mammogram for breast cancer Ureteral stone with hydronephrosis Patient Survey You may receive a survey via text or e-mail asking about your office visit. Please share your experience with us by completing your survey. We appreciate your feedback and thank you for choosing us for your care. Normal [facility] Family Medicine Office/Clini c Noteon 11-21-2024 Family Medicine Office/Clinic Note Family Medicine Office/Clinic Note HPI Staff Lian is a 54 year old female presenting for acute visit Onset: 2-3 weeks something stuck in throat Fevers: no Sinus congestion: no Sneezing: no Ear pain: right ear Ear itching, popping, fullness, ringing, muffled hearing: muffled/full Ear drainage: no Swollen nodes: no Sore throat: last 2 weeks feels like something stuck Ear pain worse with chewing: no Itching: no Difficulty hearing: no History of Present Illness pt presents today with complaint of having trouble swallowing Review of Systems PHQ Score Initial Depression Screen Score: 0 SCORE Physical Exam Vitals & Measurements T: 36.8 ???C(Tympanic) HR: 80(Peripheral) RR: 18 BP: 138/74 SpO2: 98% HT: 64 in HT: 163 cm WT: 62.90 kg WT: 138.671 lb BMI: 23.67 General: alert, no acute distress ENMT: oral mucosa moist, no pharyngeal erythema or exudate Cardiovascular: regular rate and rhythm, normal peripheral perfusion Respiratory: Lungs CTA, respirations non labored Extremities: no deformity, no trauma Neurological: oriented x 4, LOC appropriate for age, CN II-XII intact, motor strength equal & normal bilaterally, speech normal thyroid feels slightly enlarged on exam Assessment/Plan 1. Hypothyroidism (E03.9: Hypothyroidism, unspecified) pt having trouble swallowing. on exam thyroid palpated, feels enlarged. will check labs and order u/s of thyroid at [facility] for further evaluation. may consider referral to ENT depending on results. Ordered: omeprazole, 40 mg = 1 cap(s), Oral, Daily, # 90 cap(s), Refills(s) 0, Pharmacy: [facility]/pharmacy #[id number], 163, cm, 11/21/24 13:49:00 EST, Height/Length Dosing, 62.9, kg, 11/21/24 13:49:00 EST, Weight Dosing Free T4 Lab Specimen Collect 22053 T3 Free Thyroid Stimulating Hormone 2. Sore throat in the morning (J02.9: Acute pharyngitis, unspecified) pt wakes up with sore throat every morning. will switch to omeprazole from protonix. to see if that helps. if no improvement will consider referral to GI for scope. RTC 4 weeks Ordered: omeprazole, 40 mg = 1 cap(s), Oral, Daily, # 90 cap(s), Refills(s) 0, Pharmacy: [facility]/pharmacy #[id number], 163, cm, 11/21/24 13:49:00 EST, Height/Length Dosing, 62.9, kg, 11/21/24 13:49:00 EST, Weight Dosing 3. BMI 23.0-23.9, adult (Z68.23: Body mass index [BMI] 23.0-23.9, adult) BMI education Ordered: omeprazole, 40 mg = 1 cap(s), Oral, Daily, # 90 cap(s), Refills(s) 0, [id number], 163, cm, 11/21/24 13:49:00 EST, Height/Length Dosing, 62.9, kg, 11/21/24 13:49:00 EST, Weight Dosing Free T4 Lab Specimen Collect 09974 T3 Free Thyroid Stimulating Hormone 4. Non-smoker (Z78.9: Other specified health status) continue not smoking Ordered: omeprazole, 40 mg = 1 cap(s), Oral, Daily, # 90 cap(s), Refills(s) 0, Pharmacy: [facility]/pharmacy #[id number], 163, cm, 11/21/24 13:49:00 EST, Height/Length Dosing, 62.9, kg, 11/21/24 13:49:00 EST, Weight Dosing Free T4 Lab Specimen Collect 59361 T3 Free Thyroid Stimulating Hormone Follow-up No qualifying data available Problem List/Past Medical History Ongoing Anxiety states Back muscle spasm Back pain Bilateral carpal tunnel syndrome Colon cancer screening Dizziness Essential hypertension Former smoker Generalized headache Betzy thyroiditis, fibrous variant History of kidney stones History of UTI Hypothyroidism Mixed hyperlipidemia Nocturia Osteoarthritis Other specified dorsopathies, site unspecified Palpitation Pure hypercholesterolemia Sciatica Screening mammogram for breast cancer Sore throat in the morning Ureteral stone with hydronephrosis Historical No qualifying data Procedure/Surgical History Cystourethroscopy with dilation of urethral stricture (11/04/2011), Carpal tunnel release, Cholecystectomy and exploration of bile duct, Colonoscopy, Endocervical biopsy, Lumbar discectomy, Oophorectomy, Partial hysterectomy, Post-surgery back pain, Surgery. Medications levothyroxine 75 mcg (0.075 mg) Tab, See Instructions losartan 100 mg Tab, See Instructions, 4 refills mupirocin Top 2% Oint, 1 jevon, Topical, TID omeprazole 40 mg Cap-DR, 40 mg= 1 cap(s), Oral, Daily Pantoprazole [address] Tab, See Instructions, 1 refills Allergies ketamine (Decreased heart rate) Social History [...] SARS-CoV-2 (COVID-19) mRNA BNT-162b2 vax 11/23/2020 Recorded 2023-06-19 (more content not included)... Normal [facility] Comment on above: Result Comment: Elec tronically Signed By: Rena Samaniego\.br\Date and Time Signed: 11/21/24 14:26 EST Free T4on 11-21-2024 Free T4 [Mass/Vol] 1.04 ng/dL Normal 0.58-1.64 [facility] Comment on above: Performed By: #### 2 [id number] #### [facility] [address] [place] [address] TSHon 11-21-2024 TSH Qn 4.98 m[IU]/L Normal 0.34-5.60 [facility] Comment on above: Performed By: #### 2 [id number] #### [facility] [address] [place] [address] Family Medicine Office/Clini c Noteon 08-19-2024 Family [...] influenza virus vaccine, inactivated 08/18/2015 Recorded Normal [facility] Comment on above: Result Comment: Elec tronically Signed By: Caleb YO, Demarco Kowalski.br\Date and Time Signed: 08/19/24 18:20 EST Provider Letteron 08-19-2024 Provider Letter Provider Letter August 19, 2024 LIAN GORDILLO [address] [place] [address] : 1970 To Whom It May Concern, Please excuse above patient from work. May Return to Work On: 08/20/2024 Restrictions: None Comments: May return to work with no restrictions. Sincerely, [address] [address] [facility] MR lumbar spine wo conon MR lumbar spine wo con [facility] [place] [address] [place] [address] MRI Report Signed Patient: Lian Gordillo MR#: [id number] : 1970 Acct:[id number] Age/Sex: 53 / F ADM Date: 07/30/24 Loc: [place] Room: Type: [facility] Attending Dr: Homa Presley APRN Copies to: [...] Crow Rosas M.D.07/30/2024 3:41 PM Dictation Location: [place] [address] Transcribed By: EVELIN 07/30/24 1541 Dictated By: Crow Rosas II, MD 07/30/24 1534 Signed By: 07/30/24 1541 Normal [facility] Magnetic resonance imaging r eportOrdered By: Crow Rosas on 07-30-2024 Study report [place] [address] MRI Report Signed Patient: Lian Gordillo MR#: [id number] : 1970 Acct:[id number] Age/Sex: 53 / F ADM Date: 4 Loc: [place] Room: Type: [facility] Attending Dr: Homa Presley APRN Copies to: [...] Crow Rosas M.D.07/30/2024 3:41 PM Dictation Location: [place] [address] Transcribed By: [facility] 07/30/24 154 Dictated By: Crow Rosas II, MD 07/30/24 153 Signed By: 07/30/24 1541 [facility] Work Phone: XR hip LT min 2V(w/wo pelvis )*on 07-02-2024 XR hip LT min 2V(w/wo pelvis)* [facility] [place] [id number] XRay Report Signed Patient: Lian Gordillo MR#: [id number] : 1970 Acct:[id number] Age/Sex: 53 / F ADM Date: 07/02/24 Loc: XD Room: Type: [facility] Attending Dr: Homa Presley APRN Copies to: [...] BONY PROCESS.. Impression dictated by: Melina Sanches Jr..OLibra07/02/2024 8:05 PM Dictation Location: [facility]15 Transcribed By: EVELIN 07/02/242004 Dictated By: Junito Solis Jr, DO 07/02/242004 Signed By: 07/02/242004 Normal [facility] XR lumbar spine 6V w bending on 07-02-2024 XR lumbar spine 6V w bending [place] [address] XRay Report Signed Patient: Lian Gordillo MR#: [id number] : 1970 Acct:[id number] Age/Sex: 53 / F ADM Date: 07/02/24 Loc: XD Room: Type: [facility] Attending Dr: Homa Presley APRN Copies to: [...] DIFFUSE DEGENERATIVE DISC DISEASE. Impression dictated by: Melina Sanches Jr..OLibra07/02/2024 8:06 PM Dictation Location: [facility] Transcribed By: EVELIN 07/02/242005 Dictated By: Junito Solis Jr, DO 07/02/242005 Signed By: 07/02/242005 Normal [facility] Provider Letteron 06-03-2024 Provider Letter Provider Letter June 03, 2024 LIAN [address]ORDILLO [address] [place] [address] : 1970 To Whom It May Concern, Patient can only work 3 hours per day due to medical, pending neurosurgery referral, if you have any questions please contact my office. Date of Illness: From: _ 05-19-24 To: _ pending neurosurgeon appointment May Return to Work On: Restrictions: _ Comments: _ Sincerely, [address] [address] [facility] Ambulatory Visit Summaryon 0 05-27-2024 Ambulatory Visit [...] PM EDT With: Demarco Ellis MD Where: [address] [place] [address]- Medications What How Much When Instructions Unchanged [...] choosing us for your care. Normal [facility] Family Medicine Office/Clini c Noteon 05-27-2024 Family [...] time. Will also refer to pain. Ordered: [facility] External Ambulatory Referral [facility] External Ambulatory Referral Physical Therapy Evaluation - External Facility 2. Essential hypertension (I10: Essential (primary) hypertension) Blood pressure is within normal limits. No concerns today. Ordered: [facility] External Ambulatory Referral [facility] External Ambulatory Referral Physical Therapy Evaluation - External Facility 3. BMI 23.0-23.9, adult (Z68.23: Body mass index [BMI] 23.0-23.9, adult) BMI education added Ordered: [facility] External Ambulatory Referral [facility] External Ambulatory Referral Physical Therapy Evaluation - External Facility 4. Former smoker (Z87.891: Personal history of nicotine dependence) Please continue to not smoke. Ordered: [facility] External Ambulatory Referral [facility] External Ambulatory Referral [...] influenza virus vaccine, inactivated 08/18/2015 Recorded Normal [facility] Comment on above: Result Comment: Elec tronically [...] EDT With: Caleb YO, Demarco Dao Where: [facility] [place] Normal [address] [place] [id number]- \.br\ Medications\.br \ What How Much When [...] for choosing us for your care.\.br\ \.br\ [facility] Office/Clini c Noteon 04-01-2024 Family Medicine Office/Clinic [...] influenza virus vaccine, inactivated 08/18/2015 Recorded Normal [facility] Comment on above: Result Comment: Elec tronically [...] influenza virus vaccine, inactivated 08/18/2015 Recorded Normal [facility] Comment on above: Result Comment: Elec tronically Signed By: Caleb YO, Demarco Kowalski.br\Date and Time Signed: 02/29/24 14:34 EDT Provider Letteron 02-29-2024 Provider Letter February 29, 2024 LIAN GORDILLO [address] [place] [address] : 1970 To Whom It May Concern, 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 Date of Illness: From: _ To: _ May Return to Work On: Restrictions: _No lifting or bending Comments: _ Sincerely, Family Medicine [address] [address] Normal [facility] TSH With T4fr Reflexon 02-19 TSH Qn 3.81 m[IU]/L Normal 0.34-5.60 [facility] Comment on above: Performed By: #### 1 [id number] #### [facility] [address] [place] [address] Family Medicine Office/Clini c Noteon 02-19-2024 Family [...] day(s), # 21 tab(s), Refills(s) 0, Pharmacy: [facility]/pharmacy #[id number], 163.2, cm, 02/19/24 16:51:00 EDT, Height/Length Dosing, 59.1, kg, 02/19/24 16:51:00 EDT, Weight Dosing tramadol, 50 mg = 1 tab(s), Oral, q12hr, PRN for pain, X 3 day(s), # 6 tab(s), Refills(s) 0, Pharmacy: [facility]/pharmacy #[id number], 163.2, cm, 02/19/24 16:51:00 EDT, Height/Length Dosing, 59.1, kg, 02/19/24 16:51:00 EDT, Weight Dosing TSH With T4fr Reflex 2. Betzy thyroiditis, fibrous variant (E06.3: Autoimmune thyroiditis) - Will recheck labs - Follow up in 3 days Ordered: methylPREDNISolone, = 1 packet(s), Oral, As Directed, as directed on package labeling, X 6 day(s), # 21 tab(s), Refills(s) 0, Pharmacy: [facility]/pharmacy #[id number], 163.2, cm, 02/19/24 16:51:00 EDT, Height/Length Dosing, 59.1, kg, 02/19/24 16:51:00 EDT, Weight Dosing tramadol, 50 mg = 1 tab(s), Oral, q12hr, PRN for pain, X 3 day(s), # 6 tab(s), Refills(s) 0, [id number], 163.2, cm, 02/19/24 16:51:00 EDT, Height/Length Dosing, 59.1, kg, 02/19/24 16:51:00 EDT, Weight Dosing TSH With T4fr Reflex 3. BMI 22.0-22.9, adult (Z68.22: Body mass index [BMI] 22.0-22.9, adult) - BMI education uploaded Ordered: methylPREDNISolone, = 1 packet(s), Oral, As Directed, as directed on package labeling, X 6 day(s), # 21 tab(s), Refills(s) 0, [id number], 163.2, cm, 02/19/24 16:51:00 EDT, Height/Length Dosing, 59.1, kg, 02/19/24 16:51:00 EDT, Weight Dosing tramadol, 50 mg = 1 tab(s), Oral, q12hr, PRN for pain, X 3 day(s), # 6 tab(s), Refills(s) 0, [id number] 163.2, cm, 02/19/24 16:51:00 EDT, Height/Length Dosing, 59.1, kg, 02/19/24 16:51:00 EDT, Weight Dosing TSH With T4fr Reflex 4. Former smoker (Z87.891: Personal history of nicotine dependence) - Please continue to not smoke. Ordered: methylPREDNISolone, = 1 packet(s), Oral, As Directed, as directed on package labeling, X 6 day(s), # 21 tab(s), Refills(s) 0, Pharmacy: [facility]/pharmacy #[id number], 163.2, cm, 02/19/24 16:51:00 EDT, Height/Length Dosing, 59.1, kg, 02/19/24 16:51:00 EDT, Weight Dosing tramadol, 50 mg = 1 tab(s), Oral, q12hr, PRN for pain, X 3 day(s), # 6 tab(s), Refills(s) 0, Pharmacy: [facility]/pharmacy #[id number], 163.2, cm, 02/19/24 16:51:00 EDT, Height/Length [...] Denies S (more content not included)... Normal [facility] Comment on above: Result Comment: Elec tronically [...] becomes more flexible: 1. Get into a [id number] position on a firm bed or the [...] lifts Re (more content not included)... Normal [facility] Provider Letteron 02-19-2024 Provider Letter February 19, 2024 LIAN GORDILLO [address] [place] [id number] : 1970 To Whom It May Concern, Please excuse above patient from work. Date of Absence: From: 02/19/2024 To: 02/22/2024 May Return to Work On: 02/23/2024 Restrictions: Unable to physically work due to injury. Comments: Any questions, please call our office. Sincerely, Family Medicine [address] [address] Normal [facility] T3 Totalon 01-14-2024 T3 [Mass/Vol] 96 ng/dL Invalid Interpretation Code [id number] [facility] Comment on above: Result Comment: Perf ormed at: [facility] [address] [id number] PhD Juan Reddy Performed By: #### 1 [id number] #### [facility] [address] [place] [address] T4 & TSHon 01-12-2024 TSH Qn 0.11 m[IU]/L Low 0.34-5.60 [facility] Comment on above: Performed By: #### 1 [id number] #### [facility] [address] [place] [address] T4 [Mass/Vol] 5.6 microgram/dL Normal 4.6-9.1 [facility] Comment on above: Performed By: #### 1 [id number] #### [facility] [address] [place] [address] Ambulatory Visit Summaryon 0 01-11-2024 Ambulatory Visit Summary LIAN GORDILLO :1970 Visit Date:01/11/2024 Ambulatory Visit Instructions Your Diagnosis Betzy thyroiditis, fibrous variant BMI 22.0-22.9, adult Former smoker Essential hypertension Your Care Team Attending Physician - Demarco Ellis MD. Primary Care Physician - Demarco Ellis MD. This Is Your Medications List levothyroxine (levothyroxine [...] Follow-Up Appointments 2023 2:45 PM EDT With: Caleb YO, Demarco Dao Where: [facility] [place] Invalid Interpretation Code BMI 22.0-22.9, adult [facility] Office/Clini c Noteon 01-11-2024 Family [facility] Office/Clinic Note HPI Staff Lian is a [...] DAY, # 90 tab(s), Refills(s) 1, Pharmacy: [facility] [address], 163.2, cm, 07/12/23 8:28:00 EDT, Height/Length Dosing, 58.4, kg, 07/12/23 8:28:00 EDT, Weight Dosing levothyroxine, 75 mcg = 1 tab(s), Oral, Daily, # 30 tab(s), Refills(s) 1, [id number], 163.2, cm, 01/11/24 15:23:00 EDT, Height/Length Dosing, 59.4, kg, 01/11/24 15:23:00 EDT, Weight Dosing losartan, 100 mg = 1 tab(s), Oral, Daily, # 90 tab(s), Refills(s) 0, [id number], 163.2, cm, 01/11/24 15:23:00 EDT, Height/Length [...] influenza virus vaccine, inactivated 08/18/2015 Recorded Normal [facility] Comment on above: Result Comment: Elec tronically Signed By: Caleb YO, Demarco Dao\.br\Date and Time Signed: 01/11/24 15:40 EDT Physician Referralon 024 Physician Referral [id number] Normal [facility] TSHon 11-07-2023 TSH Qn 0.01 m[IU]/L Low 0.34-5.60 [facility] Comment on above: Performed By: #### 1 [id number] #### [facility] [address] [place] [address] Ambulatory Visit Summaryon 0 11-06-2023 Ambulatory Visit Summary LIAN GORDILLO :1970 Visit Date:11/06/2023 Ambulatory Visit Instructions Your Diagnosis Back muscle spasm BMI 22.0-22.9, adult Former smoker Your Care Team Attending Physician - Demarco Ellis MD Primary Care Physician - Caleb YO, Demarco Dao This Is Your Medications List baclofen (baclofen [...] Invalid Interpretation Code Former smoker, pp_set_radiolog y_subspecialty, [facility]\.br\ Someone Will Contact You Regarding These Appointments\.b r\ [facility] External Ambulatory Referral, Neurosurgery, 11/06/23 16:45:00 EST, Back muscle spasm [facility] Medicine Office/Clini c Noteon 11-06-2023 Family Medicine [...] review. - Continue meds as before. Ordered: [facility] External Ambulatory Referral XR Spine Lumbosacral Minimum 4 Views 2. BMI 22.0-22.9, adult (Z68.22: Body mass index [BMI] 22.0-22.9, adult) - bmi education given Ordered: [facility] External Ambulatory Referral XR Spine Lumbosacral Minimum 4 Views 3. Former smoker (Z87.891: Personal history of nicotine dependence) - Please continue to not smoke. Ordered: [facility] External Ambulatory Referral [...] Self Directed Pantoprazole [address] Tab, 40 mg= 1 tab(s), Oral, Daily [...] influenza virus vaccine, inactivated 08/18/2015 Recorded Normal [facility] Comment on above: Result Comment: Elec tronically Signed By: Caleb YO, Demarco Dao\.br\Date and Time Signed: 11/06/23 16:47 EST [facility] September 06, 2023 LIAN GORDILLO [address] [place] [id number] : 1970 Dear Lian, We have tried contacting you in regards to your renal ultrasound and X-ray that was scheduled for 08/09/23 for ensure passage of your ureteral stone. According to our records you missed your imaging appointment at [facility] and you have no rescheduled. My [...] Sincerely, Dr. Patricia Vega MD [facility] [place] [address] Normal [facility] CHEMISTRYOrdered By: SYSTEM SYSTEM on 08-01-2023 TSH [...] rate/Area] 109 mL/min/1.73 m2 Normal >=59mL/min/1.73 m2 [facility] Comment on above: Interpretive Data: C hronic kidney disease could be indicated at eGFR's of less than 60 mL/min/1.73m2. Kidney failure is indicated at less than 15 mL/min/1.73m2. Globulin (S) [Mass/Vol] 2.9 g/dL Normal 1.4 - 4.0 gm/dL [facility] Remisol Glucose [Mass/Vol] 86 mg/dL Normal 55 - 199 mg/dL [facility] Remisol Comment on above: Interpretive Data: I f this glucose result represents a fasting glucose, interpretation should refer to the following reference range: 55-99 mg/dL Potassium [Moles/Vol] 3.9 mmol/L Normal 3.5 - 5.3 mmol/L [facility] Remisol Protein [Mass/Vol] 7.4 g/dL Normal 6.0 - 7.8 gm/dL [facility] Remisol Sodium [Moles/Vol] 143 mmol/L Normal 135 [...] 3.1 E9/L Normal 2.0 - 7.5 E9/L [facility] HemeAutoSS HEMATOLOGYOrdered By: Melinda Goel on 06-19-2023 Erythrocyte distribution width (RBC) [Ratio] 12.9 % Normal 10.9 - 14.2 % [facility] HemeAutoSS Hematocrit (Bld) [Volume fraction] 37.5 % Normal 34.0 - 46.0 % [facility] HemeAutoSS Hemoglobin (Bld) [Mass/Vol] 12.9 g/dL Normal 12.0 - 16.0 gm/dL [facility] HemeAutoSS MCH (RBC) [Entitic mass] 29.0 pg [...] 176.0 E9/L Normal 150.0 - 500.0 E9/L [facility] HemeAutoSS RBC (Bld) [#/Vol] 4.5 E12/L Normal 4.3 - 5.9 E12/L [facility] HemeAutoSS WBC corrected for nucl RBC Auto (Bld) [#/Vol] 6.0 E9/L Normal 4.0 - 11.0 E9/L [facility] HemeAutoSS CBC AUTO DIFFon 12-14-2021 BASO # 0.0 103/ul Normal 0.0-0.1 [facility] Comment on above: Performed By: #### C BC #### [facility] [address] [address] [address] Mar Casillas Basophils/100 WBC (Bld) 0.8 % Normal 0.2-2.0 [facility] Comment on above: Performed By: #### C BC #### [facility] [address] [place] [address] Dr. Mar Casillas EO # 0.3 103/ul Normal 0.0-0.7 [facility] Comment on above: Performed By: #### C BC #### [facility] [address] [place] [address] Dr. Mar Casillas Eosinophils/100 WBC (Bld) 4.8 % Normal 0.9-7.0 [facility] Comment on above: Performed By: #### C BC #### [facility] [address] [place] [address] Dr. Mar Casillas Erythrocyte distribution width (RBC) [Ratio] 11.9 % Normal 11.0-15.0 [facility] Comment on above: Performed By: #### C BC #### [facility] [address] [place] [address] Dr. Mar Casillas Hematocrit (Bld) [Volume fraction] 40.0 % Normal 36.0-48.0 [facility] Comment on above: Performed By: #### C BC #### [facility] [address] [place] [address] Dr. Mar Casillas Hemoglobin (Bld) [Mass/Vol] 13.5 g/dL Normal 12.0-16.0 [facility] Comment on above: Performed By: #### C BC #### [facility] [address] [place] [address] Dr. Mar Casillas IG # 0.01 10e3/ul Normal 0.00-0.03 [facility] Comment on above: Performed By: #### C BC #### [facility] [address] [place] [address] Dr. Mar Casillas IG % 0.2 % Normal 0.0-0.5 [facility] Comment on above: Performed By: #### C BC #### [facility] [address] [place] [address] Dr. Mar Casillas LYMPH # 2.1 103/ul Normal 1.2-3.8 [facility] Comment on above: Performed By: #### C BC #### [facility] [address] [place] [address] Dr. Mar Casillas Lymphocytes/100 WBC (Bld) 40.3 % Normal 20.5-60.0 [facility] Comment on above: Performed By: #### C BC #### [facility] [address] [place] [address] Dr. Mar Casilals MANUAL DIFF REQ NO Normal [facility] Comment on above: Performed By: #### C BC #### [facility] [address] [place] [address] Dr. Mar Casillas MCH (RBC) [Entitic mass] 28.9 pg Normal 26.7-34.0 [facility] Comment on above: Performed By: #### C BC #### [facility] [address] [place] [address] Dr. Mar Casillas MCHC (RBC) [Mass/Vol] 33.8 g/dL Normal 29.9-35.2 [facility] Comment on above: Performed By: #### C BC #### [facility] [address] [place] [address] Dr. Mar Casillas MCV (RBC) [Entitic vol] 85.7 fL Normal 81.0-99.0 [facility] Comment on above: Performed By: #### C BC #### [facility] [address] [place] [address] Dr. Mar Casillas MONO # 0.4 103/ul Normal 0.3-0.8 [facility] Comment on above: Performed By: #### C BC #### [facility] [address] [place] [address] Dr. Mar Casillas Monocytes/100 WBC (Bld) 6.7 % Normal 1.7-12.0 [facility] Comment on above: Performed By: #### C BC #### [facility] [address] [place] [address] Dr. Mar Casillas NEUT # 2.5 103/ul Normal 1.4-6.5 [facility] Comment on above: Performed By: #### C BC #### [facility] [address] [place] [address] Dr. Mar Casillas Neutrophils/100 WBC (Bld) 47.2 % Normal 43.0-75.0 [facility] Comment on above: Performed By: #### C BC #### [facility] [address] [place] [address] Dr. Mar Casillas Platelet mean volume (Bld) [Entitic vol] 9.3 fL Critically low 9.5-13.5 [facility] Comment on above: Performed By: #### C BC #### [facility] [address] [place] [address] Dr. Mar Casillas PLT 167 103/ul Normal 150-450 [facility] Comment on above: Performed By: #### C BC #### [facility] [address] [place] [address] Dr. Mar Casillas RBC 4.67 106/ul Normal 4.20-5.40 [facility] Comment on above: Performed By: #### C BC #### [facility] [address] [place] [address] Dr. Mar Casillas WBC 5.2 103/ul Normal 4.0-11.0 [facility] Comment on above: Performed By: #### C BC #### [facility] [address] [place] [address] Dr. Mar Casillas CRPon 12-14-2021 CRP [Mass/Vol] mg/L Normal <=1.0 [facility] Comment on above: Performed By: #### T SH, FT3, CRP, LIPID, CMP #### [facility] [address] [place] [address] Dr. Mar Casillas FREE T3on 12-14-2021 FREE T3 3.18 pg/mlL Normal 2.77-5.27 [facility] Comment on above: Performed By: #### T SH, FT3, CRP, LIPID, CMP #### [facility] [address] [address] [address] Mar Casillas FREE T4on 12-14-2021 Free T4 [Mass/Vol] 2.11 ng/dL Normal 0.78-2.19 [facility] Comment on above: Performed By: #### F T4 #### [facility] [address] [place] [address] Dr. Mar Casillas LIPID PROFILEon 12-14-2021 CHOL-HDL RATIO NORM SEE BELOW Normal [facility] Comment on above: Result Comment: 3.3 - 4.4 LOW RISK 4.4 - 7.1 AVERAGE RISK 7.1 - 11.0 MODERATE RISK >11.0 HIGH RISK Performed By: #### T SH, FT3, CRP, LIPID, CMP #### [facility] [address] [place] [address] Dr. Mar Casillas Cholesterol [Mass/Vol] 157 mg/dL Normal <=200 [facility] Comment on above: Performed By: #### T SH, FT3, CRP, LIPID, CMP #### [facility] [address] [place] [address] Dr. Mar Casillas Cholesterol in HDL [Mass/Vol] 44 mg/dL Normal 40-60 [facility] Comment on above: Performed By: #### T SH, FT3, CRP, LIPID, CMP #### [facility] [address] [place] [address] Dr. Mar Casillas Cholesterol in LDL [Mass/Vol] 85.4 mg/dL Normal [facility] Comment on above: Performed By: #### T SH, FT3, CRP, LIPID, CMP #### [facility] [address] [address] [address] Mar Casillas Cholesterol.total/Ch olesterol in HDL [Mass ratio] 3.6 {ratio} Normal [facility] Comment on above: Performed By: #### T SH, FT3, CRP, LIPID, CMP #### [facility] [address] [address] [address] Mar Casillas HDL NORMAL > or = 60 mg/dl - LO W CARDIOVASCULAR RISK <40 mg/dl - HIGH CARDIOVASCULAR RISK Normal [facility] Comment on above: Performed By: #### T SH, FT3, CRP, LIPID, CMP #### [facility] [address] [address] [address] Mar Casillas LDL CALC NORMAL SEE BELOW Normal [facility] Comment on above: Result Comment: <100 mg/dl OPTIMAL 100 - 129 mg/dl NEAR OR ABOVE OPTIMAL 130 - 159 mg/dl BORDERLINE HIGH 160 - 189 mg/dl HIGH >190 mg/dl VERY HIGH Performed By: #### T SH, FT3, CRP, LIPID, CMP #### [facility] [address] [address] [address] Mar Casillas Triglyceride [Mass/Vol] 138 mg/dL Normal <=150 [facility] Comment on above: Performed By: #### T SH, FT3, CRP, LIPID, CMP #### [facility] [address] [address] [address] Mar Casillas VLDL CALC 27.6 mg/dL Normal [facility] Comment on above: Performed By: #### T SH, FT3, CRP, LIPID, CMP #### [facility] [address] [address] [address] Mar Casillas PROF 14(COMP METB)on 022 Albumin [Mass/Vol] 4.2 g/dL Normal 3.4-5.0 [facility] Comment on above: Performed By: #### T SH, FT3, CRP, LIPID, CMP #### [facility] [address] [place] [address] Dr. Mar Casillas Albumin/Globulin [Mass ratio] 1.5 {ratio} Normal [facility] Comment on above: Performed By: #### T SH, FT3, CRP, LIPID, CMP #### [facility] [address] [address] [address] Mar Casillas ALP [Catalytic activity/Vol] 81 U/L Normal 46-116 [facility] Comment on above: Performed By: #### T SH, FT3, CRP, LIPID, CMP #### [facility] [address] [place] [address] Dr. Mar Casillas ALT [Catalytic activity/Vol] 23 U/L Normal 14-59 [facility] Comment on above: Performed By: #### T SH, FT3, CRP, LIPID, CMP #### [facility] [address] [place] [address] Dr. Mar Casillas Anion gap [Moles/Vol] 14.1 mmol/L Normal [facility] Comment on above: Performed By: #### T SH, FT3, CRP, LIPID, CMP #### [facility] [address] [place] [address] Dr. Mar Casillas AST [Catalytic activity/Vol] 20 U/L Normal 15-37 [facility] Comment on above: Performed By: #### T SH, FT3, CRP, LIPID, CMP #### [facility] [address] [place] [address] Dr. Mar Casillas Bilirubin [Mass/Vol] 0.4 mg/dL Normal 0.2-1.3 [facility] Comment on above: Performed By: #### T SH, FT3, CRP, LIPID, CMP #### [facility] [address] [place] [address] Dr. Mar Casillas Calcium [Mass/Vol] 9.1 mg/dL Normal 8.5-10.1 [facility] Comment on above: Performed By: #### T SH, FT3, CRP, LIPID, CMP #### [facility] [address] [place] [address] Dr. Mar Casillas Chloride [Moles/Vol] 107 mmol/L Normal 98-107 [facility] Comment on above: Performed By: #### T SH, FT3, CRP, LIPID, CMP #### [facility] [address] [address] [address] Mar Casillas CO2 [Moles/Vol] 29.5 mmol/L Normal 22.0-30.0 [facility] Comment on above: Performed By: #### T SH, FT3, CRP, LIPID, CMP #### [facility] [address] [place] [address] Dr. Mar Casillas Creatinine [Mass/Vol] 0.62 mg/dL Normal 0.52-1.04 [facility] Comment on above: Performed By: #### T SH, FT3, CRP, LIPID, CMP #### [facility] [address] [place] [address] Dr. Mar Casillas EGFR-AF ICELANDIC >60 Normal >=60 [facility] Comment on above: Performed By: #### T SH, FT3, CRP, LIPID, CMP #### [facility] [address] [place] [address] Dr. Mar Casillas EGFR-NON AF ICELANDIC >60 Normal >=60 [facility] Comment on above: Performed By: #### T SH, FT3, CRP, LIPID, CMP #### [facility] [address] [place] [address] Dr. Mar Casillas Globulin (S) [Mass/Vol] 2.8 g/dL Normal [facility] Comment on above: Performed By: #### T SH, FT3, CRP, LIPID, CMP #### [facility] [address] [place] [address] Dr. Mar Casillas Glucose [Mass/Vol] 104 mg/dL Normal 74-106 [facility] Comment on above: Performed By: #### T SH, FT3, CRP, LIPID, CMP #### [facility] [address] [place] [address] Dr. Mar Casillas Potassium [Moles/Vol] 4.6 mmol/L Normal 3.4-5.0 [facility] Comment on above: Performed By: #### T SH, FT3, CRP, LIPID, CMP #### [facility] [address] [place] [address] Dr. Mar Casillas Protein [Mass/Vol] 7.0 g/dL Normal 6.1-8.2 [facility] Comment on above: Performed By: #### T SH, FT3, CRP, LIPID, CMP #### [facility] [address] [place] [address] Dr. Mar Casillas Sodium [Moles/Vol] 146 mmol/L Critically high 137-145 [facility] Comment on above: Performed By: #### T SH, FT3, CRP, LIPID, CMP #### [facility] [address] [place] [address] Dr. Mar Casillas Urea nitrogen [Mass/Vol] 16.0 mg/dL Normal 7.0-18.0 [facility] Comment on above: Performed By: #### T SH, FT3, CRP, LIPID, CMP #### [facility] [address] [place] [address] Dr. Mar Casillas Urea nitrogen/Creatinine [Mass ratio] 25.8 mg/mg Normal [facility] Comment on above: Performed By: #### T SH, FT3, CRP, LIPID, CMP #### [facility] [address] [place] [address] Dr. Mar Casillas TSHon 12-14-2021 TSH Qn m[IU]/L Critically low 0.470-4.680 [facility] Comment on above: Performed By: #### T SH, FT3, CRP, LIPID, CMP #### [facility] [address] [place] [address] Dr. Mar Casillas TSH RANGE SEE BELOW Normal [facility] Comment on above: Result Comment: <0.3 4 UIU/ml HYPERTHYROID 0.34-5.60 UIU/ml EUTHYROID >5.60 UIU/ml HYPOTHYROID Performed By: #### T SH, FT3, CRP, LIPID, CMP #### [facility] [address] [place] [address] Dr. Mar Casillas Vital Signs Date Time Vital Sign Value Performing Clinician Faci lity 08-06-2024 13:00-0500 Body height 165.1 cm Jay Ellis Work Phone: [facility] 08-06-2024 13:00-0500 Body mass index (BMI) [Ratio] 23.3 kg/m2 Jay Ellis Work Phone: [facility] 08-06-2024 13:00-0500 Body weight 63.67 kg Jay Ellis Work Phone: [facility] 07-02-2024 15:04-0400 Body height 165.1 cm [facility] 07-02-2024 15:04-0400 Body mass index (BMI) [Ratio] 22.3 kg/m2 [facility] 07-02-2024 15:04-0400 Body weight 60.78 kg [facility] 07-12-2023 08:24-0400 Blood Pressure Location Patriciastevo Vega [facility] 07-12-2023 08:24-0400 Diastolic blood pressure 84 mm[Hg] Patricia Lue [facility] 07-12-2023 08:24-0400 Systolic blood pressure 124 mm[Hg] Patricia Lue [facility] Encounters Encounter Date Encounter Type Care Provider Facility Start: 05-08-2025 [facility] Start: 01-20-2025 End: 01-20-2025 ambulatory Demarco Ellis Facility:[facility] Sondra levy Start: 12-19-2024 End: 12-19-2024 ambulatory Rena Guzman Facility:[facility] Sondra cam Start: 12-18-2024 ambulatory Demarco Ellis Facility :[facility] Oli Start: 11-21-2024 End: 11-21-2024 ambulatory CARTRIDGE LOADER Rena L Megan Facility:[facility] Start: 08-19-2024 End: 08-19-2024 ambulatory Demarco Ellis Facility:[facility] cam Start: 08-06-2024 End: 08-06-2024 ambulatory Jay Ellis Work Phone: [facility] Work Phone: Start: 08-06-2024 End: 08-06-2024 Patient encounter procedure Jay Ellis Work Phone: [facility] Neurosurgery Work Phone: Start: 07-30-2024 End: 07-30-2024 Patient encounter procedure Jay Ellis Work Phone: [facility] [address] Work Phone: Start: 07-30-2024 End: 07-30-2024 ambulatory Homa Presley Facility:[facility] Start: 07-11-2024 End: 07-11-2024 ambulatory Demarco Ellis Facility:[facility] Start: 07-02-2024 End: 07-02-2024 ambulatory Jay Ellis Work Phone: [facility] Work Phone: Start: 07-02-2024 End: 07-02-2024 Patient encounter procedure [facility] Work Phone: Start: 05-27-2024 End: 05-27-2024 ambulatory Demarco Ellis Facility:[facility] [place] [facility] Start: 04-30-2024 Non-patient / Non-visit [facility] Work Phone: Start: 04-22-2024 End: 04-22-2024 ambulatory Demarco lElis Facility:[facility] [place] [facility] Start: 04-01-2024 End: 04-01-2024 ambulatory Demarco Ellis Facility:[facility] [facility] Start: 02-29-2024 End: 02-29-2024 ambulatory Demarco Ellis Facility:[facility] [facility] Start: 02-22-2024 End: 02-22-2024 ambulatory Demarco Ellis Facility:[facility] [facility] Start: 02-19-2024 End: 02-19-2024 Lab Drop off Demarco Ellis [facility] Start: 02-19-2024 End: 02-19-2024 ambulatory Demarco Ellis Facility:[facility] Start: 01-11-2024 End: 01-11-2024 Lab Drop off Demarco Ellis [facility] Start: 01-11-2024 End: 01-11-2024 ambulatory Demarco Ellis Facility:[facility] Start: 11-07-2023 ambulatory [facility]arco Ellis [facility] Start: 11-06-2023 End: 11-06-2023 Lab Drop off Demarco Ellis [facility] Start: 11-06-2023 End: 11-06-2023 ambulatory Demarco Ellis Facility:[facility] Start: 08-01-2023 End: 08-01-2023 Lab Drop off Rena Guzman [facility] Start: 07-12-2023 End: 07-12-2023 Patient encounter procedure Patricia Vega [facility] Start: 06-19-2023 End: 06-19-2023 Lab Drop off Demarco WootenLibra Caleb [facility] Start: 12-14-2021 End: 12-15-[address] XENA GARNER Facility: Start: 02-18-2018 End: 02-18-2018 Refill Jennifer Alegria MD Work Phone: Endocrinology Comment on above: Refill Request Procedures Date Procedure Procedure Detail Performing Clinician Start: 07-30-2024 MR lumbar spine wo con Jay Ross Work Phone: Start: 07-02-2024 Plain X-ray of left hip Jay Ellis Work Phone: Start: 07-02-2024 X-ray of lumbar spin e, six views including bending views Jay Ellis Work Phone: Start: 11-04-2011 Cystourethroscopy wi th dilation of urethral stricture Patricia Vega Cholecystectomy and exploration of bile duct Demarco Ellis Colonoscopy Patricia Vega Decompression of median nerve Demarco Ellis Decompression of median nerve Patricia Lue Endocervical biopsy Patricia wooten Excision of lumbar intervertebral disc Patricia Olmose Oophorectomy Demarco Ellis Post-surgery back pa in (finding) Patricia Vega Surgery (qualifier value) Sa rosalino Ellis Comment on above: revision back 03/2017 Plan of Treatment Date Care Activity Detail Author Start: 08-06-2024 Patient referral [facility] Work Phone: Start: 07-02-2024 Patient referral [facility] Work Phone: Start: 05-19-2021 Influenza vaccination INFLUENZ A (Season Ended) [facility] Start: 10-18-2019 DIABETES SCREEN DIABETES SCREEN [facility] Start: 2017 LIPID SCREEN LIPID SCREEN [facility] Start: 2012 Mammography MAMMOGRAM [facility] Start: 2002 HPV TESTING HPV TESTING [facility] Start: 1993 PAP TESTING PAP TESTING [facility] Start: 1991 Urine microalbumin profile DTAP,TDAP,TD (1 - Tdap) [facility] Start: 1990 HEPATITIS C SCREENING HEPATITIS C SC RHEA [facility] Start: 1990 HIV SCREENING HIV SCREENING [facility] Start: 1984 Adult depression screening assessment DEPRESSION SCREENING [facility] Patient referral [facility] Work Phone: XR Hip - left 2 Views [facility] XR Lumbar spine Views [facility] Immunizations Immunization Date Immunization Notes Care Provider Fa cility 11-23-2020 SARS-CoV-2 (COVID-19 ) mRNA BNT-162b2 vax Demarco Ellis [facility] Comment on above: Result Comment: 2022: [id number] 11-05-2020 SARS-CoV-2 (COVID-19 ) mRNA BNT-162b2 vax Demarco Ellis [facility] Comment on above: Result Comment: 2022: [id number] 08-18-2015 influenza virus vaccine, unspecified formulation Demarco Ellis [facility] Payers Date Payer Category Payer Self-pay 2023 Unknown [id number] 2009 Private Health Insurance [facility] UMR CHOICE PLUS [id number] 2009-2019 O [id number] .2.7.3.119190.315 1972 Unknown [id number] 2.16.840.1.438991.3.579 .2.593 1972 Unknown [id number] 2.16.840.1.693446.3.579 .2.727 1972 Unknown [id number] 2.16.840.1.032917.3.579 .2.727 1972 Unknown [id number] 2.16.840.1.542799.3.579 .2.72 1972 Unknown [id number] 2.16.840.1.056436.3.579 .2 1972 Unknown [id number] 2.16.840.1.336466.3.579 .2 1972 Unknown [id number] 2.16.840.1.711902.3.579 .2 1972 Unknown [id number] 2.16.840.1.728646.3.579 .2 1972 Unknown [id number] 2.16.840.1.649565.3.579 .2 1972 Unknown [id number] 2.16.840.1.240250.3.579 .2 1972 Unknown [id number] 2.16.840.1.319722.3.579 .2 1972 Unknown [id number] 2.16.840.1.420044.3.579 .2 1972 Unknown [id number] 2.16.840.1.032354.3.579 .2 1972 Unknown [id number] 2.16.840.1.832892.3.579 .2 1972 Unknown [id number] 2.16.840.1.235981.3.579 .2 1972 Unknown [id number] 2.16.840.1.305572.3.579 .2 1972 Unknown [id number] 2.16.840.1.961649.3.579 .2 1972 Unknown [id number] 2.16.840.1.486411.3.579 .2 1972 Unknown [id number] 2.16.840.1.013419.3.579 .2 1972 Unknown [id number] 2.16.840.1.956613.3.579 .21973 Unknown [id number] 2.16.840.1.654583.3.579 .2.727 1972 Unknown [id number] 2.16.840.1.341637.3.579 .2.727 1959 Unknown [id number] 1959 Unknown [id number] Medicare Medicare [id number] Unknown [id number] 2.16.840.1.844691.3.579 .2.531 Unknown [id number] 2.16.840.1.406002.3.579 .2.531 Unknown Regular Insurance [id number] Social History Date Type Detail Facility Start: 10-18-2016 End: 02-19-2024 Tobacco smoking status NHIS Former smoker [facility] Start: 10-18-2016 Tobacco use and exposure Never used [facility] Start: 10-18-2016 Alcohol intake Current non-dr wall washer of alcohol (finding) [facility] Start: 1970 [facility] Tobacco quit 15 years ag o Tobacco Use:. Ready to change: No. Household tobacco concerns: No. [facility] Tobacco smoking status No Smokin g Status Entered [facility] Start: 1970 Sex Assigned At Female F [facility] Tobacco smoking stat us DCIS Unknown if ever smoked [facility] Work Phone: Start: 07-31-2024 End: 08-06-2024 Sex Female (finding) [facility] Functional Status Date Assessment Result Facility 07-12-2023 Functional Status N/A [facility] Clinical Notes 07-12-2023 to 07-02-2024 Note Date & Type Note Facility 07-02-2024 Evaluation note Diagnosis Onset Date Resolution Left hip pain acute June 2:58pm Left lumbar radiculopathy acute July 02 2:58pm [facility] Work Phone: 1(753) 577-529102-19-2024 Evaluation + Plan note Diagnostic Tests Pending * Thyroid Stimulating Hormone 11/06/23 Future Scheduled Tests Radiology* XR Spine Lumbosacral Minimum 4 Views 11/06/23 [facility]10-25-2023 Hospital Discharge instructions Patient Education 07/12/2023 09:03:06 [...] include: ?8 oz (237 mL) of milk, tszwsoo-clmhcigymtdk-notmt milk, and calcium- fortifiedfruit juice. Calcium-fortified means [...] ?Spinach (cooked), rhubarb, beets, sweet potatoes, and Argentine chard. ?Peanuts. ?Potato chips, greenlandic fries, and baked potatoes with skin on. ?Nuts and nut products. ?Chocolate. If you regularly take a diuretic medicine, make sure to eat at least 1 or 2 servings of fruits or vegetables that are high in potassium each day. These include: ?Avocado. ?Banana. ?Independence, prune, carrot, or tomato juice. ?Baked potato. [...] magnesium, fish oil, or vitamin B6. Take uwhn-ejh-idwldkp and prescription medicines only as told by [...] Casseroles. Pizza. Lasagna. Frozen meals. Potato chips. Urdu fries. The items listed above may not [...] provider. Document Revised: 05/16/2022 Document Reviewed: 05/16/2022 [employer] Patient Education 2022 [email or web address]. Follow Up Care 06/29/2023 13:20:16 With:Gary YO, HECTOR Briones, URO Address: When:Within 1 Year(s) Comments:medhat/VÍCTOR & OPAL [facility] evaluation + Plan note No data available for this section [facility] Future App[facility]ments Appointment Date:07/25/2023 01:20:00 PM Scheduled Provider:Desmond KANG MD Location:[facility] Appointment Type:[place] [address] Appointment Date:08/01/2023 01:20:00 PM Scheduled Provider: Location:[facility] Appointment Type: Lab Draw [facility] evaluation + Plan note Future Appointments Appointment Date:07/11/2024 02:45:00 PM Scheduled Provider:Demarco Ellis MD Location:[facility] Appointment Type: Open Diagnostic Tests Pending * T4 & TSH 01/11/24 * T3 Total 01/11/24 Future Scheduled Tests Radiology* XR Spine Lumbosacral Minimum 4 Views 11/06/23 [facility] Future Appointments Appointment Date:02/22/2024 02:30:00 PM Scheduled Provider:Demarco Ellis MD Location:[facility] Appointment Type:FM Open Appointment Date:07/11/2024 02:45:00 PM Scheduled Provider:Demarco Ellis MD [facility] Appointment Type: Open Diagnostic Tests Pending * TSH With T4fr Reflex 02/19/24 Future Scheduled Tests Radiology* XR Spine Lumbosacral Minimum 4 Views 11/06/23 [facility] Diagnosis Onset Date Resolution Status Left hip pain acute Left lumbar radiculopathy ac dov [facility] Work Phone: Hospital Discharge instructions No data available for this section [facility] instructions[facility] Orders* Referral to PT / OT / Speech (PT/OT/SP) Location: [facility] Work Phone: Hospital Discharge instructionsAmbulatory Orders* Referral to Pain Management Location: None [facility] Work Phone: Progress note No data available for this section [facility] Summary Purpose Family History No Family History [...] or prosecute any alcohol or drug abuse patient.[facility] Reason for Visit (unrecogniz ed section and content) Reason Comments Refill Request INFORMATION SOURCE (unrecogn ized section and content) DATE CREATED AUTHOR 06/29/2022 [facility] DATE CREATED AUTHOR AUTHOR'S ORGANIZ ATION 08/01/2024 [facility] DATE CREATED AUTHOR AUTHOR'S ORGANIZ ATION 08/21/2024 [facility] DATE CREATED AUTHOR AUTHOR'S ORGANIZ ATION 11/24/2024 [facility] DATE CREATED AUTHOR AUTHOR'S ORGANIZ ATION 01/24/2025 [facility] DATE CREATED AUTHOR AUTHOR'S ORGANIZ ATION 05/07/2025 [facility] Patient Care team informatio n (unrecognized [...] BE BASED ON THE PRIMARY CLINICAL RECORDS. [facility] [employer] provides no warranty or guarantee of the accuracy or completeness of information in this document.
--- OUTSIDE RECORDS SUMMARY | 2025-05-09 23:23 | XMS_ITS | Patient Health Record ---
Author Organization [employer] Address [address] [place] [address] Care Team Providers Care Piping Blocker Name Role Phone Grace Ndiaye Primary Care Provider [phone] Reason For Referral No Information Plan Of Treatment No Information
--- OUTSIDE RECORDS SUMMARY | 2025-05-09 23:23 | XMS_ITS | Clinical Summary ---
Author Organization [facility] Address [id number] [address] [place] [address] Care Team Providers Care Paraeducator Name Role Phone Unavailable Primary Care Provider Unavailabl e Social History Tobacco Use Types Packs/Day Years Used Date Smoking Tobacco: Never Assessed Childcare Answer Date Recorded Childcare Unknown 02/27/2019 Employment Answer Date Recorded Employment Unknown 02/27/2019 Comments Unknown Sex and Gender Information Value Date Recorded Sex Assigned at Not on file Legal Sex Female 11:24 AM EDT Gender Identity Not on file Sexual Orientation Not on file Plan of Treatment Not on file Medical Devices Not on file
[2025-05-10 01:03] VITALS: BP 153/97; PULSE 67; TEMP 37.3; O2SAT 97; BMI 21.5
--- NOTE | 2025-05-10 01:31 | ED.EXTPRO1 ---
HPI - Extremity Problem General Chief complaint: Extremity Problem, Nontraumatic Stated complaint: RIGHT HAND SWOLLEN Time Seen by Provider: 05/10/25 01:27 Source: patient Mode of arrival: walk-in Limitations: no limitations History of Present Illness HPI Narrative: presents with swelling right hand. Started as focal lesion thenar eminence of the right hand. States she cleaned it and applied bandage. when she removed the bandage it was swollen. Now presents to be seen . Low grade fever. is able to move her fingers Related Data Home Medications ?Medication ?Instructions ?Recorded ?Confirmed baclofen 20 mg tablet 20 mg PO Q8H 04/30/24 04/30/24 levothyroxine 100 mcg tablet mcg 04/30/24 levothyroxine 75 mcg tablet 75 mcg PO DAILY 04/30/24 05/10/25 losartan 100 mg tablet 100 mg PO DAILY 04/30/24 05/10/25 pantoprazole 40 mg tablet,delayed 40 mg PO DAILY 04/30/24 05/10/25 release Allergies Allergy/AdvReac Type Severity Reaction Status Date / Time ketamine AdvReac Intermediate Anaphylaxis Verified 05/10/25 01:02 Review of Systems ROS Status of ROS 10 or more systems reviewed and unremarkable except as noted in history and below PFSH PFSH Social History Smoking status: Former smoker Little interest or pleasure in doing things: not at all Feeling down, depressed, or hopeless: not at all Exam Constitutional Vital Signs, click to edit/add: Last Vital Signs Temp 99.2 F 05/10/25 01:03 Pulse 67 05/10/25 01:03 Resp 18 05/10/25 01:03 BP 153/97 H 05/10/25 01:03 Pulse Ox 97 05/10/25 01:03 O2 Del Method Room Air 05/10/25 01:03 Common normals: no apparent distress, average body habitus, oriented x3, no limitations, healthy appearing, alert and well nourished [facility] Common normals: normocephalic and head/scalp atraumatic Eye Common normals: EOMs intact bilaterally and conjunctivae normal Respiratory Common normals: normal respiratory effort, no retractions, no use of accessory muscles and clear to auscultation bilaterally Cardio Common normals: regular rate, regular rhythm, S1 normal heart sound and S2 normal heart sound Extremity Other: insect bite appearing foci at thenar eminence right hand. mild swelling and erythema of the hand. able to move all her fingers Neuro Common normals: oriented x3, CN's II-XII intact bilaterally, moves all extremities and no focal motor deficits Psych Appearance: grossly normal Course Vital Signs Vital signs: Vital Signs Temperature 99.2 F 05/10/25 01:03 Pulse Rate 67 05/10/25 01:03 Respiratory Rate 18 05/10/25 01:03 Blood Pressure 153/97 H 05/10/25 01:03 Pulse Oximetry 97 05/10/25 01:03 Oxygen Delivery Method Room Air 05/10/25 01:03 Temperature 99.2 F 05/10/25 01:03 Pulse Rate 67 05/10/25 01:03 Respiratory Rate 18 05/10/25 01:03 Blood Pressure 153/97 H 05/10/25 01:03 Pulse Oximetry 97 05/10/25 01:03 Oxygen Delivery Method Room Air 05/10/25 01:03 MDM - Extremity (Nontraumatic) MDM Narrative Medical decision making narrative: patient presents with what appears to be a focal insect bite at the thenar eminence of the right hand from 2 days ago . Hand is now swollen at the thenar eminence and base of the thumb. she is able to move all her fingers including her thumb and tenosynovitis is not suspected. WBC is normal and CRP mildly elevated. She was treated with Unasyn and discharged with augmentin.xray without finding of FB. Advised to follow up with her doctor in a couple of days. She is to return to the ER if her hand worsens Lab Data Labs: Lab Results 05/10/25 Range/Units 01:50 WBC 5.7 (4.0-11.0) 10^3/uL RBC 4.01 L (4.20-5.40) 10^6/uL Hgb 12.5 (12.0-16.0) g/dL Hct 35.6 L (36.0-48.0) % MCV 88.8 (81.0-99.0) fL MCH 31.2 (26.7-34.0) pg MCHC 35.1 (29.9-35.2) g/dL RDW 12.9 (11.0-15.0) % Plt Count 133 L (150-450) 10^3/uL MPV 9.4 L (9.5-13.5) fL Neut % (Auto) 74.1 (43.0-75.0) % Lymph % (Auto) 17.3 L (20.5-60.0) % [place] % (Auto) 5.8 (1.7-12.0) % Eos % (Auto) 2.1 (0.9-7.0) % Baso % (Auto) 0.7 (0.2-2.0) % Neut # (Auto) 4.2 (1.4-6.5) 10^3/uL Lymph # (Auto) 1.0 L (1.2-3.8) 10^3/uL [place] # (Auto) 0.3 (0.3-0.8) 10^3/uL Eos # (Auto) 0.1 (0.0-0.7) 10^3/uL Baso # (Auto) 0.0 (0.0-0.1) 10^3/uL Abs Immat Gran (auto) 0.00 (0.00-0.03) 10^3/uL Imm/Tot Granulo (auto) 0.0 (0.0-0.5) % Sodium 140 (136-145) mmol/L Potassium 3.4 L (3.5-5.1) mmol/L Chloride 106 (98-107) mmol/L Carbon Dioxide 29.0 (21.0-32.0) mmol/L Anion Gap 8.4 BUN 19.0 H (7.0-18.0) mg/dL Creatinine 0.87 (0.55-1.02) mg/dL Est GFR ( Amer) >60 (>=60 mL/min/1.73m^2) Est GFR (Non-Af Amer) >60 (>=60 mL/min/1.73m^2) BUN/Creatinine Ratio 21.8 Glucose 95 (74-106) mg/dL Lactate 0.3 L (0.4-2.0) mmol/L Calcium 8.8 (8.5-10.1) mg/dL C-Reactive Protein 0.52 H (<=0.50) mg/dL Discharge Plan Discharge Chief Complaint: Extremity Problem, Nontraumatic Clinical Impression: Cellulitis Patient Disposition: Home, Self-Care Prescriptions / Home Meds: No Action baclofen 20 mg tablet 20 mg PO Q8H levothyroxine 75 mcg tablet 75 mcg PO DAILY levothyroxine 100 mcg tablet losartan 100 mg tablet 100 mg PO DAILY pantoprazole 40 mg tablet,delayed release (DR/EC) 40 mg PO DAILY Print Language: Syriac Instructions: Cellulitis (ED) Additional Instructions: follow up with your doctor monday for recheck. Return if hand worsens Referrals: BRIANA TERRY [Primary Care Provider, [facility]] - 1 week
[2025-05-10] MEDS: AMPICILLIN SODIUM/SULBACTAM NA 3 GM in 0.9 % SODIUM CHLORIDE 100 ML IV (01:47)
[2025-05-10 02:21] LABS: Hematocrit 35.6 % (36.0-48.0); Hemoglobin 12.5 g/dL (12.0-16.0); Immature Granulocytes Abs Auto 0.00 10^3/uL (0.00-0.03); Immature Granulocytes Pct Auto 0.0 % (0.0-0.5); Lymphocytes Absolute Auto 1.0 10^3/uL (1.2-3.8); Mean Corpuscular HGB Conc 35.1 g/dL (29.9-35.2); Mean Corpuscular Hemoglobin 31.2 pg (26.7-34.0); Mean Corpuscular Volume 88.8 fL (81.0-99.0); Platelet Count 133 10^3/uL (150-450); Red Blood Count 4.01 10^6/uL (4.20-5.40); White Blood Count 5.7 10^3/uL (4.0-11.0)
[2025-05-10 02:24] LABS: Anion Gap 8.4; Blood Urea Nitrogen 19.0 mg/dL (7.0-18.0); Calcium 8.8 mg/dL (8.5-10.1); Carbon Dioxide 29.0 mmol/L (21.0-32.0); Chloride 106 mmol/L (98-107); Estimated GFR (African America >60 (>=60 mL/min/1.73m^2); Estimated GFR (Non-African Ame >60 (>=60 mL/min/1.73m^2); Glucose 95 mg/dL (74-106); Potassium 3.4 mmol/L (3.5-5.1); Sodium 140 mmol/L (136-145)
[2025-05-10 02:31] LABS: Lactate/Lactic Acid 0.3 mmol/L (0.4-2.0)
--- NOTE | 2025-05-10 03:18 | XR_ITS ---
The [address] [address] Patient Name: LIAN GORDILLO MRN: [id number] date: 1970 Sex: F Assigned Patient Location: ED.MAIN Current Patient Location: Accession/Order Number: [id number] Exam Date: 05/10/2025 03:20 Report Date: 05/10/2025 08:20 At the request of: CHANTELLE CHINCHILLA MD Procedure: XR hand RT min 3V XR hand RT min 3V 05/10/2025 3:35 AM SIGNS AND SYMPTOMS: Acute swelling of right hand PROTOCOL: Frontal, lateral, and oblique radiographs of the right hand COMPARISON: None FINDINGS: Periarticular calcifications are noted along the second distal interphalangeal joint. There is diffuse soft tissue swelling. There is no fracture or dislocation. Joint spaces are otherwise preserved. No osteolytic or bony destructive process. XR/XR hand RT min 3V IMPRESSION: Diffuse nonspecific soft tissue swelling. Degenerative changes are noted along the distal interphalangeal joint of the second digit. No fracture. Impression dictated by: Crow Rosas M.D. 05/10/2025 8:20 AM Dictation Location: [facility] Electronically authenticated by: [id number] Y Date: 05/10/2025 08:20
[2025-05-10] MEDS: AMOXICILLIN/POT CLAV 875-125 MG TABLET 1 TAB PO (03:44)
== END 2025-05-10 04:33 | disposition home or self-care (01) ==
PROVIDERS: Emergency Provider Internal Medicine; PCP Nurse Practitioner
DX: L03.113 Cellulitis of right upper limb (principal); Z87.891 Personal history of nicotine dependence
CPT/HCPCS: 36415; 73130; 80048; 83605; 85025; 86140; 96365; 99284; J0295